=== PATIENT | female | born 1935 | race Caucasian/White ===

== ENCOUNTER → 2016-06-22 | Outpatient (REF) | payer MEDICARE ==
[2016-06-22 17:37] LABS: ALBUMIN 4.1 GM/DL (3.2-5.2); ALBUMIN/GLOBULIN RATIO 1.24 (1.00-1.93); ALKALINE PHOSPHATASE 54 U/L (45-117); ALT/SGPT 30 U/L (12-78); ANION GAP 7 MEQ/L (8-16); AST/SGOT 25 U/L (15-37); BILIRUBIN,TOTAL 0.4 MG/DL (0.2-1.0); BLOOD UREA NITROGEN 25 MG/DL (7-18); CALCIUM LEVEL 9.6 MG/DL (8.8-10.2); CARBON DIOXIDE LEVEL 30 MEQ/L (21-32); CHLORIDE LEVEL 104 MEQ/L (98-107); CHOLESTEROL LEVEL 154 MG/DL (<200); CREATININE FOR GFR 0.94 MG/DL (0.55-1.02); GLOMERULAR FILTRATION RATE > 60.0 (>39); GLUCOSE, FASTING 109 MG/DL (83-110); POTASSIUM SERUM 4.4 MEQ/L (3.5-5.1); SODIUM LEVEL 141 MEQ/L (136-145); TOTAL PROTEIN 7.4 GM/DL (6.4-8.2); TRIGLYCERIDES LEVEL 149 MG/DL (<150)
== END ==
LOC: M SFHCCLAY 11:19
PROVIDERS: ATTEND Family Medicine
DX: E78.2 Mixed hyperlipidemia (principal); R73.9 Hyperglycemia, unspecified

== ENCOUNTER → 2016-12-12 | Outpatient (REF) | payer MEDICARE ==
[2016-12-12 17:51] LABS: ALBUMIN/GLOBULIN RATIO 1.14 (1.00-1.93); ALKALINE PHOSPHATASE 57 U/L (45-117); ALT/SGPT 26 U/L (12-78); ANION GAP 9 MEQ/L (8-16); AST/SGOT 23 U/L (15-37); BILIRUBIN,TOTAL 0.4 MG/DL (0.2-1.0); BLOOD UREA NITROGEN 18 MG/DL (7-18); CALCIUM LEVEL 9.3 MG/DL (8.8-10.2); CARBON DIOXIDE LEVEL 27 MEQ/L (21-32); CHLORIDE LEVEL 105 MEQ/L (98-107); CHOLESTEROL LEVEL 144 MG/DL (<200); CREATININE FOR GFR 0.93 MG/DL (0.55-1.02); GLOMERULAR FILTRATION RATE > 60.0 (>39); GLUCOSE, FASTING 98 MG/DL (83-110); POTASSIUM SERUM 4.8 MEQ/L (3.5-5.1); SODIUM LEVEL 141 MEQ/L (136-145); TOTAL PROTEIN 7.5 GM/DL (6.4-8.2); TRIGLYCERIDES LEVEL 139 MG/DL (<150)
== END ==
LOC: M SFHCCLAY 10:56
PROVIDERS: ATTEND Family Medicine
DX: E78.2 Mixed hyperlipidemia (principal)

== ENCOUNTER → 2017-06-27 | Outpatient (REF) | payer MEDICARE ==
[2017-06-27 12:20] LABS: ALBUMIN 3.9 GM/DL (3.2-5.2); ALBUMIN/GLOBULIN RATIO 1.05 (1.00-1.93); ALKALINE PHOSPHATASE 66 U/L (45-117); ALT/SGPT 23 U/L (12-78); ANION GAP 6 MEQ/L (8-16); AST/SGOT 20 U/L (7-37); BILIRUBIN,TOTAL 0.4 MG/DL (0.2-1.0); BLOOD UREA NITROGEN 29 MG/DL (7-18); CALCIUM LEVEL 9.2 MG/DL (8.8-10.2); CARBON DIOXIDE LEVEL 28 MEQ/L (21-32); CHLORIDE LEVEL 105 MEQ/L (98-107); CHOLESTEROL LEVEL 156 MG/DL (<200); CREATININE FOR GFR 0.93 MG/DL (0.55-1.30); GLOMERULAR FILTRATION RATE > 60.0 (>39); GLUCOSE, FASTING 108 MG/DL (70-100); HDL CHOLESTEROL 50 MG/DL (>40); LDL CHOLESTEROL 81.8 MG/DL (<100); NON-HDL-C 106 MG/DL; POTASSIUM SERUM 4.4 MEQ/L (3.5-5.1); SODIUM LEVEL 139 MEQ/L (136-145); TOTAL PROTEIN 7.6 GM/DL (6.4-8.2); TRIGLYCERIDES LEVEL 121 MG/DL (<150)
== END ==
LOC: M SFHCCLAY 07:13
DX: E78.2 Mixed hyperlipidemia (principal)
CPT/HCPCS: 84443

== ENCOUNTER → 2017-10-31 | Outpatient (REF) | payer MEDICARE ==
[2017-10-31 11:31] LABS: HEMATOCRIT 42.1 % (36.0-47.0); MEAN CORPUSCULAR HEMOGLOBIN 32.6 pg (27.0-33.0); MEAN CORPUSCULAR HGB CONC 33.3 g/dl (32.0-36.5); MEAN CORPUSCULAR VOLUME 98.1 fl (80.0-96.0); PLATELET COUNT, AUTOMATED 455 10^3/uL (150-450); RED BLOOD COUNT 4.29 10^6/uL (4.00-5.40); RED CELL DISTRIBUTION WIDTH 14.2 % (11.5-14.5); WHITE BLOOD COUNT 10.7 10^3/uL (4.0-10.0)
[2017-10-31 12:12] LABS: ALBUMIN 3.5 GM/DL (3.2-5.2); ALBUMIN/GLOBULIN RATIO 0.95 (1.00-1.93); ALKALINE PHOSPHATASE 50 U/L (45-117); ALT/SGPT 32 U/L (12-78); ANION GAP 10 MEQ/L (8-16); AST/SGOT 22 U/L (7-37); BILIRUBIN,TOTAL 0.4 MG/DL (0.2-1.0); BLOOD UREA NITROGEN 24 MG/DL (7-18); CARBON DIOXIDE LEVEL 25 MEQ/L (21-32); CHLORIDE LEVEL 108 MEQ/L (98-107); CHOLESTEROL LEVEL 140 MG/DL (<200); CHOLESTEROL RISK RATIO 2.641 (<5); CREATININE FOR GFR 0.91 MG/DL (0.55-1.30); GLOMERULAR FILTRATION RATE > 60.0 (>39); GLUCOSE, FASTING 99 MG/DL (70-100); HDL CHOLESTEROL 53 MG/DL (>40); LDL CHOLESTEROL 65.2 MG/DL (<100); NON-HDL-C 87 MG/DL; POTASSIUM SERUM 4.9 MEQ/L (3.5-5.1); SODIUM LEVEL 143 MEQ/L (136-145); TOTAL PROTEIN 7.2 GM/DL (6.4-8.2); TRIGLYCERIDES LEVEL 109 MG/DL (<150)
== END ==
LOC: M SFHCCLAY 08:29
DX: E78.2 Mixed hyperlipidemia (principal); I10 Essential (primary) hypertension; C50.912 Malignant neoplasm of unspecified site of left female breast
CPT/HCPCS: 84443

== ENCOUNTER → 2018-04-29 | Outpatient (REF) | payer MEDICARE ==
[2018-04-29 11:19] LABS: HEMOGLOBIN 13.8 g/dl (12.0-15.5); MEAN CORPUSCULAR HEMOGLOBIN 32.7 pg (27.0-33.0); MEAN CORPUSCULAR HGB CONC 32.9 g/dl (32.0-36.5); MEAN CORPUSCULAR VOLUME 99.5 fl (80.0-96.0); PLATELET COUNT, AUTOMATED 461 10^3/uL (150-450); RED BLOOD COUNT 4.22 10^6/uL (4.00-5.40); WHITE BLOOD COUNT 14.6 10^3/uL (4.0-10.0)
[2018-04-29 11:37] LABS: ALBUMIN 3.3 GM/DL (3.2-5.2); BILIRUBIN,TOTAL 0.2 MG/DL (0.2-1.0); CALCIUM LEVEL 9.5 MG/DL (8.8-10.2); GLOMERULAR FILTRATION RATE 56.8 (>32); THYROID STIMULATING HORMONE 5.41 uIU/ML (0.358-3.740)
== END ==
LOC: M SFHCCLAY 07:10
PROVIDERS: ATTEND Family Medicine
DX: I10 Essential (primary) hypertension (principal); C50.912 Malignant neoplasm of unspecified site of left female breast; E78.2 Mixed hyperlipidemia

== ENCOUNTER → 2018-06-10 | Outpatient (REF) | payer MEDICARE ==
[2018-06-10 11:53] LABS: BASO # 0.1 10^3/uL (0.0-0.2); BASO % 1.1 % (0.0-1.0); EOS # 0.3 10^3/uL (0.0-0.50); EOS % 3.2 % (0.0-3.0); HEMOGLOBIN 13.6 g/dl (12.0-15.5); LYMPH % 27.8 % (24.0-44.0); MEAN CORPUSCULAR HEMOGLOBIN 32.9 pg (27.0-33.0); MEAN CORPUSCULAR HGB CONC 32.4 g/dl (32.0-36.5); MEAN CORPUSCULAR VOLUME 101.4 fl (80.0-96.0); MONO # 0.7 10^3/uL (0.0-0.8); MONO % 6.4 % (0.0-5.0); NEUTROPHILS # 6.4 10^3/uL (1.8-7.7); NEUTROPHILS % 60.6 % (36.0-66.0); PLATELET COUNT, AUTOMATED 396 10^3/uL (150-450); RED BLOOD COUNT 4.14 10^6/uL (4.00-5.40); WHITE BLOOD COUNT 10.6 10^3/uL (4.0-10.0)
[2018-06-10 12:46] LABS: FREE T4 1.04 NG/DL (0.76-1.46); THYROID STIMULATING HORMONE 4.39 uIU/ML (0.358-3.740)
== END ==
LOC: M SFHCCLAY 07:40
PROVIDERS: ATTEND Family Medicine
DX: D72.829 Elevated white blood cell count, unspecified (principal); R79.89 Other specified abnormal findings of blood chemistry; I10 Essential (primary) hypertension

== ENCOUNTER → 2018-12-01 | Outpatient (REF) | payer MEDICARE ==
[2018-12-01 11:39] LABS: BASO # 0.1 10^3/uL (0.0-0.2); BASO % 0.8 % (0.0-1.0); EOS # 0.2 10^3/uL (0.0-0.50); EOS % 1.7 % (0.0-3.0); HEMATOCRIT 38.8 % (36.0-47.0); HEMOGLOBIN 12.7 g/dl (12.0-15.5); LYMPH # 3.3 10^3/uL (1.5-4.5); LYMPH % 29.2 % (24.0-44.0); MEAN CORPUSCULAR HEMOGLOBIN 31.8 pg (27.0-33.0); MEAN CORPUSCULAR HGB CONC 32.7 g/dl (32.0-36.5); MEAN CORPUSCULAR VOLUME 97.2 fl (80.0-96.0); MONO # 0.8 10^3/uL (0.0-0.8); MONO % 7.2 % (0.0-5.0); NEUTROPHILS # 6.8 10^3/uL (1.8-7.7); NEUTROPHILS % 59.8 % (36.0-66.0); PLATELET COUNT, AUTOMATED 467 10^3/uL (150-450); RED BLOOD COUNT 3.99 10^6/uL (4.00-5.40); WHITE BLOOD COUNT 11.4 10^3/uL (4.0-10.0)
[2018-12-01 12:10] LABS: FREE T4 0.96 NG/DL (0.76-1.46); THYROID STIMULATING HORMONE 3.87 uIU/ML (0.358-3.740)
== END ==
LOC: M SFHCCLAY 09:35
PROVIDERS: ATTEND Family Medicine
DX: D72.829 Elevated white blood cell count, unspecified (principal); R79.89 Other specified abnormal findings of blood chemistry

== ENCOUNTER → 2019-10-12 | Outpatient (REF) | payer MEDICARE ==
[2019-10-12 11:29] LABS: HEMATOCRIT 31.6 % (36.0-47.0); HEMOGLOBIN 10.5 g/dl (12.0-15.5); MEAN CORPUSCULAR HEMOGLOBIN 37.2 pg (27.0-33.0); MEAN CORPUSCULAR HGB CONC 33.2 g/dl (32.0-36.5); MEAN CORPUSCULAR VOLUME 112.1 fl (80.0-96.0); PLATELET COUNT, AUTOMATED 281 10^3/uL (150-450); RED BLOOD COUNT 2.82 10^6/uL (4.00-5.40); WHITE BLOOD COUNT 9.7 10^3/uL (4.0-10.0)
[2019-10-12 12:06] LABS: ALBUMIN 3.6 GM/DL (3.2-5.2); BILIRUBIN,TOTAL 0.3 MG/DL (0.2-1.0); CALCIUM LEVEL 9.7 MG/DL (8.8-10.2); CHOLESTEROL RISK RATIO 2.929 (<5); FREE T4 1.08 NG/DL (0.76-1.46); GLOMERULAR FILTRATION RATE 56.6 (>32); POTASSIUM SERUM 4.5 MEQ/L (3.5-5.1); THYROID STIMULATING HORMONE 2.35 uIU/ML (0.358-3.740); TOTAL PROTEIN 7.2 GM/DL (6.4-8.2)
== END ==
LOC: M SFHCCLAY 09:10
PROVIDERS: ATTEND Family Medicine
DX: I10 Essential (primary) hypertension (principal); E78.2 Mixed hyperlipidemia; Z86.711 Personal history of pulmonary embolism; E87.1 Hypo-osmolality and hyponatremia

== ENCOUNTER → 2020-02-16 | Outpatient (REF) | payer MEDICARE ==
[2020-02-17 11:43] LABS: HEMATOCRIT 35.3 % (36.0-47.0); HEMOGLOBIN 11.2 g/dl (12.0-15.5); MEAN CORPUSCULAR HEMOGLOBIN 36.8 pg (27.0-33.0); MEAN CORPUSCULAR HGB CONC 31.7 g/dl (32.0-36.5); PLATELET COUNT, AUTOMATED 312 10^3/uL (150-450); RED BLOOD COUNT 3.04 10^6/uL (4.00-5.40); WHITE BLOOD COUNT 17.5 10^3/uL (4.0-10.0)
[2020-02-17 12:02] LABS: MEAN CORPUSCULAR VOLUME 116.1 fl (80.0-96.0)
[2020-02-17 12:36] LABS: CALCIUM LEVEL 10.3 MG/DL (8.8-10.2); CREATININE FOR GFR 0.97 MG/DL (0.55-1.30); FREE T4 0.94 NG/DL (0.76-1.46); GLOMERULAR FILTRATION RATE 58.5 (>32); POTASSIUM SERUM 5.5 MEQ/L (3.5-5.1); THYROID STIMULATING HORMONE 1.19 uIU/ML (0.358-3.740)
== END ==
LOC: M SFHCCLAY 14:25
PROVIDERS: ATTEND Family Medicine
DX: R60.9 Edema, unspecified (principal)
CPT/HCPCS: 80048; 84439; 84443; 85027; G0463; G8482

== ENCOUNTER → 2020-06-01 | Outpatient (REF) | payer MEDICARE ==
[2020-06-01 11:59] LABS: HEMOGLOBIN 11.8 g/dl (12.0-15.5); MEAN CORPUSCULAR HEMOGLOBIN 33.1 pg (27.0-33.0); MEAN CORPUSCULAR HGB CONC 31.9 g/dl (32.0-36.5); MEAN CORPUSCULAR VOLUME 103.9 fl (80.0-96.0); PLATELET COUNT, AUTOMATED 341 10^3/uL (150-450); RED BLOOD COUNT 3.56 10^6/uL (4.00-5.40)
[2020-06-01 12:33] LABS: BLOOD UREA NITROGEN 12 MG/DL (7-18); CALCIUM LEVEL 10.4 MG/DL (8.8-10.2); CARBON DIOXIDE LEVEL 31 MEQ/L (21-32); CHLORIDE LEVEL 95 MEQ/L (98-107); CREATININE FOR GFR 0.91 MG/DL (0.55-1.30); GLOMERULAR FILTRATION RATE > 60.0 (>32); GLUCOSE, FASTING 196 MG/DL (70-100); MAGNESIUM LEVEL 1.8 MG/DL (1.8-2.4); POTASSIUM SERUM 3.1 MEQ/L (3.5-5.1); SODIUM LEVEL 137 MEQ/L (136-145)
[2020-06-01 13:05] LABS: ANISOCYTOSIS 1+; ATYPICAL LYMPH 10 % (0-5); LYMPHOCYTES 19 % (16-44); MONOCYTES 2 % (0-5); MYELOCYTES 2 % (0-0); NEUTROPHILS 62 % (28-66); PLATELET ESTIMATE NORMAL (NORMAL); POLYCHROMASIA 1+
[2020-06-02 08:51] LABS: METAMYELOCYTES 1 % (0-0)
== END ==
LOC: M SFHCCLAY 07:58
PROVIDERS: ATTEND Family Medicine
DX: J18.9 Pneumonia, unspecified organism (principal); I10 Essential (primary) hypertension; E87.6 Hypokalemia

== ENCOUNTER → 2020-06-01 | Outpatient (CLI) | payer MEDICARE ==
--- NOTE | 2020-06-01 10:33 | REP ---
INDICATION: J18.9 PNEUMONIA OF LOWER LOBE DUE TO INFECTIOUS. COMPARISON: No comparison chest x-ray. TECHNIQUE: Two views.. 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 There is a mild levoconvex curve in the upper thoracic spine. No acute bony abnormality is seen. Lung rizo are otherwise clear. Pleural angles are sharp. Heart size is normal. Pulmonary vasculature is not increased. IMPRESSION: No acute disease. Calcific pleural plaquing bilaterally in the upper lung zones. No infiltrate seen.. <Electronically signed by Moshe Leyva > 06/01/20 [id number]
== END ==
LOC: M CLY 08:07
PROVIDERS: ATTEND Family Medicine
DX: R91.8 Other nonspecific abnormal finding of lung field (principal); J18.9 Pneumonia, unspecified organism; I10 Essential (primary) hypertension; E87.6 Hypokalemia

== ENCOUNTER → 2020-06-21 | Outpatient (REF) | payer MEDICARE ==
[2020-06-22 13:19] LABS: CALCIUM LEVEL 8.9 MG/DL (8.8-10.2); CREATININE FOR GFR 1.11 MG/DL (0.55-1.30); GLOMERULAR FILTRATION RATE 50.1 (>32); POTASSIUM SERUM 4.3 MEQ/L (3.5-5.1)
== END ==
LOC: M SFHCCLAY 15:22
PROVIDERS: ATTEND Family Medicine
DX: I10 Essential (primary) hypertension (principal)
CPT/HCPCS: 80048; 99497; G0463

== ENCOUNTER 2020-12-09 20:33 | Inpatient (IN) | payer MEDICARE ==
[~2020-12-09] VITALS: Ht 162.6 cm; Wt 89.2 kg
[2020-12-09 21:42] LABS: BASO % 0.2 % (0.0-1.0); EOS % 0.1 % (0.0-3.0); HEMATOCRIT 40.3 % (36.0-47.0); HEMOGLOBIN 13.5 g/dl (12.0-15.5); LYMPH # 1.7 10^3/uL (1.5-5.0); LYMPH % 13.7 % (24.0-44.0); MEAN CORPUSCULAR HEMOGLOBIN 33.8 pg (27.0-33.0); MEAN CORPUSCULAR HGB CONC 33.5 g/dl (32.0-36.5); MEAN CORPUSCULAR VOLUME 100.8 fl (80.0-96.0); MONO # 0.7 10^3/uL (0.0-0.8); MONO % 5.2 % (2.0-8.0); NEUTROPHILS # 8.4 10^3/uL (1.5-8.5); NEUTROPHILS % 66.5 % (36.0-66.0); PLATELET COUNT, AUTOMATED 228 10^3/uL (150-450); WHITE BLOOD COUNT 12.6 10^3/uL (4.0-10.0)
[2020-12-09] MEDS ORDERED: NS 1,000 ML IV ONE (21:55)
[2020-12-09 22:10] LABS: ALBUMIN 2.8 GM/DL (3.2-5.2); BILIRUBIN,TOTAL 0.6 MG/DL (0.2-1.0); CALCIUM LEVEL 9.6 MG/DL (8.8-10.2); CREATININE FOR GFR 1.26 MG/DL (0.55-1.30); GLOMERULAR FILTRATION RATE 43.2 (>32); POTASSIUM SERUM 3.1 MEQ/L (3.5-5.1)
[2020-12-09 22:43] LABS: VENOUS BASE EXCESS 5.4 (-2.0-2.0); VENOUS HCO3 30.2 MEQ/L (23.0-27.0); VENOUS O2 SATURATION 87.1 % (60.0-80.0); VENOUS PARTIAL PRESSURE CO2 44.3 mmHg (38.0-50.0); VENOUS PARTIAL PRESSURE O2 55.4 mmHg (30.0-50.0); VENOUS PH 7.451 UNITS (7.330-7.430); VENOUS STANDARD HCO3 29.1 MEQ/L; VENOUS TOTAL CO2 31.5 MEQ/L (24.0-28.0)
--- NOTE | 2020-12-09 23:03 | REPVR ---
PROCEDURE INFORMATION: Exam: XR Chest Exam date and time: 12/09/20 (10:09pm) Age: 85 years old Clinical indication: Dizziness, weakness. Sepsis / shock. TECHNIQUE: Imaging protocol: Portable CXR Views: 1 view COMPARISON: Chest films of 06/01/20 FINDINGS: Comparison is made with chest films done on 06/01/20. Poor inspiratory effort. The left lung base is not fully included on the film. Difficult to assess the mediastinum and heart size due to patient positioning and film technique. Pleural calcifications again noted peripherally in the upper lobes. The visualized lung rizo appear clear. No obvious consolidation. No pleural effusion on the right side. No pneumothorax. IMPRESSION: Limited evaluation due to patient positioning and poor inspiratory effort. No definite infiltrates. No consolidation. No right-sided pleural effusion is seen. No pneumothorax. See additional comments above. Electronically signed by: Tanesha Myers On 12/09/2020 23:02:35 PM
[2020-12-09 23:16] LABS: ALBUMIN 2.7 GM/DL (3.2-5.2); ALT/SGPT 58 U/L (12-78); BILIRUBIN,DIRECT 0.1 MG/DL (0.0-0.2); BILIRUBIN,TOTAL 0.6 MG/DL (0.2-1.0); CK-MB VALUE MASS 1.7 NG/ML (<3.6); CPK CREATINE PHOSPHOKINASE 42 U/L (26-192); MB/CK RELATIVE INDEX 4.05 (< OR =4); TOTAL PROTEIN 6.5 GM/DL (6.4-8.2); TROPONIN I < 0.02 NG/ML (< 0.10)
--- NOTE | 2020-12-09 23:20 | REPVR ---
PROCEDURE INFORMATION: Exam: CT Head without Contrast Exam date and time: 12/09/20 (10:19pm) Age: 85 years old Clinical indication: Lethargy and weakness TECHNIQUE: Imaging protocol: Computed tomography of the head without contrast. Radiation optimization: All CT scans at this facility use at least one of these dose optimization techniques: automated exposure control; mA and/or kV adjustment per patient size (includes targeted exams where dose is matched to clinical indication); or iterative reconstruction. COMPARISON: No relevant prior studies available FINDINGS: Brain: No acute hemorrhage. No cerebral edema. No mass effect. Age-related atrophic changes are noted. Periventricular and subcortical areas of low attenuation, compatible with chronic small vessel microischemic changes. Cerebral ventricles: No ventriculomegaly. Paranasal sinuses: Visualized sinuses are unremarkable. No air-fluid levels. Mastoid air cells: Visualized mastoid air cells are well aerated. Bones/joints: No acute fracture. Multiple sclerotic skull foci, bilaterally. No obvious bone destruction. Soft tissues: Unremarkable. IMPRESSION: No acute intracranial pathology is appreciated. Chronic atrophic and microischemic changes. Multiple sclerotic skull foci, of unclear significance. Possible metastatic disease, eg. Clinical correlation is suggested. . Comparison with prior CT-HEAD scans is suggested, if available Electronically signed by: Tanesha Myers On 12/09/2020 23:19:40 PM
[2020-12-09] MEDS ORDERED: NS 1,320 ML in IV 1 EA IV ONE (23:25)
[2020-12-09] MEDS ORDERED: KCL 10MEQ/100ML SWI (KRUN) 10 MEQ in IV 1 EA IV ONE (23:25)
[2020-12-09 23:47] LABS: ACETONE/KETONE 5.6 MG/DL (<2.81); MAGNESIUM LEVEL 2.1 MG/DL (1.8-2.4); PHOSPHORUS LEVEL 3.2 MG/DL (2.5-4.9)
[2020-12-09 23:57] LABS: HEMOGLOBIN A1c 10.7 %
[2020-12-10] VITALS (16 sets, daily range): BP systolic 131–175; BP diastolic 62–78; O2SAT 89–98
[2020-12-10 00:56] LABS: RSV AMPLIFICATION NEGATIVE (NEGATIVE)
[2020-12-10] MEDS ORDERED: SIMV40TA20 PO (02:29)
[2020-12-10] MEDS ORDERED: GLIP5TAB8 PO (02:29)
[2020-12-10] MEDS ORDERED: SITA50TAB PO (02:29)
[2020-12-10] MEDS ORDERED: KLOR10TA76 PO (02:29)
[2020-12-10] MEDS ORDERED: ACETAMINOPHEN TAB 650MG DOSE (2X325MG) PO PRN (02:50)
[2020-12-10] MEDS ORDERED: GLUCOSE 4GM CHEW TABLET PO PRN (02:55)
[2020-12-10] MEDS ORDERED: GLUCAGON INJ 1MG VIAL SC PRN (02:55)
[2020-12-10] MEDS ORDERED: DEXTROSE 50% 50 ML SYRINGE IV PRN (02:55)
[2020-12-10] MEDS ORDERED: THIAMINE 200MG 2ML VIAL IM ONE (03:00)
--- NOTE | 2020-12-10 03:10 | HPEPDOC ---
General Date of Admission 12/10/2020 Date of Service: Dec 10, 2020 Chief Complaint Feels fatigue, weak, and thirsty Source: Patient, Old records Exam Limitations: Clinical conditions, Mild cognitive slowing Timing/Duration: Unsure Severity: Moderate Associated Symptoms: Weakness History of Present Illness Patient is a 85 year old female with past medical history of hypertension and dyslipidemia who presented to [facility] ED by EMS due to generalized weakness and dizziness for a week. Patient appears very sleepy but is able to able questions with re-orientation at times. She said that she feels very thirsty, sleepy, and weak. She said she has a poor appetite. denies any fever, chest pain, palpitation, dyspnea, cough, sore throat, rhinorrhea, nausea, vomiting, abdominal pain, diarrhea, constipation, blood in stool, dysuria, numbness, tingling, or loss of sensation. She said she has bilateral leg pain even while laying supine, denies being bed-bound. Home Medications Scheduled Apixaban (Eliquis) 5 Mg Tablet, 5 MG PO BID, (Reported) Dexamethasone (Dexamethasone) 2 Mg Tablet, 2 MG PO DAILY, (Reported) Furosemide (Furosemide) 40 Mg Tablet, 40 MG PO DAILY, (Reported) Glipizide (Glipizide) 5 Mg Tablet, 5 MG PO ACB, (Reported) OBTAINED FROM EXTERNAL HISTORY Potassium Chloride (Klor-Con M10) 10 Meq Tab.er.prt, 10 MEQ PO BID, (Reported) WITH FOOD OBTAINED FROM EXTERNAL HISTORY Simvastatin (Simvastatin) 40 Mg Tablet, 40 MG PO QPM, (Reported) OBTAINED FROM EXTERNAL Sitagliptin (Januvia) 50 Mg Tablet, 50 MG PO DAILY, (Reported) OBTAINED FROM EXTERNAL HISTORY Allergies Coded Allergies: No Known Drug Allergies (Verified Allergy, Unknown, 12/09/20) Past Medical History Medical History Hypertension Hyperlipidemia: cholesterol and triglycerides Breast cancer-Dr. Jose G swain left Social History * Smoker: Denies Alcohol: Denies Drugs: denies Recent Travel/Sick Contacts: Denies: Recent travel, Recent sick contacts Patient reported she lives with daughter at home A-FIB/CHADSVASC A-FIB History Current/History of A-Fib/PAF?: No Review of Systems Constitutional: Reports: Fatigue, Other (decreased appetite); Denies: Chills, Fever Eyes: Denies: Vision change ENT: Reports: Other Symptoms (Denies rhinorrhea); Denies: Dysphagia, Sore Throat Pulmonary: Denies: Dyspnea, Cough Cardiovascular: Denies: Chest Pain, Palpitations Gastrointestinal: Denies: Nausea, Vomiting, Abdominal Pain, Diarrhea, Constipation, Hematochezia Genitourinary: Denies: Dysuria, Frequency, Hematuria Endocrine: Reports: Other Endocrine Sx (Thirsty) Musculoskeletal: Reports: Leg Pain (bilateral calf pain) Neurological: Denies: Numbness Psych: Reports: Anxiety, Depression Physical Examination General Exam: Positive: Cooperative, Mild Distress (intermittently), Other (Sleepy but arousable) Eye Exam: Positive: Conjunctiva & lids normal, EOMI; Negative: Sclera icteric ENT Exam: Positive: Atraumatic, Other ENT (dry mucous [place]) Neck Exam: Positive: Supple Chest Exam: Positive: Clear to auscultation, Normal air movement; Negative: Rales, Rhonchi, Wheezing, Diminished Heart Exam: Positive: Rate Normal, Regular Rhythm, Normal S1, Normal S2; Negative: Murmurs Abdomen Exam: Positive: Normal bowel sounds, Soft; Negative: Tenderness Extremity Exam: Positive: Edema (bilateral edema), Normal pulses (in bilateral lower extremities: dorsalis pedis and tibialis posterior), Other (negative nhan's sign bilaterally); Negative: Cyanosis Skin Exam: Positive: Other skin issue (ecchymosis); Negative: Rash, Lesion Neuro Exam: Positive: Normal Speech, Strength at 5/5 X4 ext, Normal Tone, Sensation Intact Psych Exam: Positive: Mood NL, Memory Intact, Oriented x 3 (oriented to name, city, and year) Vital Signs Vital Signs Date Time Temp Pulse Resp B/P (MAP) Pulse Ox O2 Delivery O2 Flow Rate FiO2 12/10/20 02:50 90 16 96 Nasal Cannula 2.0 12/10/20 02:31 154/70 (98) 12/09/20 20:45 99.6 Laboratory Data Labs 24H Laboratory Tests 2 12/09/20 21:35: Immature Granulocyte % (Auto) 14.3H, Neutrophils (%) (Auto) 66.5H, Lymphocytes (%) (Auto) 13.7L, Monocytes (%) (Auto) 5.2, Eosinophils (%) (Auto) 0.1, Basophils (%) (Auto) 0.2, Neutrophils # (Auto) 8.4, Lymphocytes # (Auto) 1.7, Monocytes # (Auto) 0.7, Eosinophils # (Auto) 0.0, Basophils # (Auto) 0.0, Nucleated Red Blood Cells % (auto) 1.0H, Anion Gap 9, Glomerular Filtration Rate 43.2, Estimated Mean Plasma Glucose 260H, Hemoglobin A1c 10.7, Osmolality 297, Calcium Level 9.6, Phosphorus Level 3.2, Magnesium Level 2.1, Total Bilirubin 0.6, Aspartate Amino Transf (AST/SGOT) 35, Alanine Aminotransferase (ALT/SGPT) 58, Alkaline Phosphatase 75, Total Protein 6.0L, Albumin 2.8L, Albumin/Globulin Ratio 0.9L, B-Hydroxybutyrate 5.60H 12/09/20 22:29: Total Bilirubin 0.6, Aspartate Amino Transf (AST/SGOT) 33, Alanine Aminotransferase (ALT/SGPT) 58, Alkaline Phosphatase 76, Total Protein 6.5, Albumin 2.7L, Albumin/Globulin Ratio 0.7L, Blood Gas Bicarbonate Standard 29.1, Venous Blood pH 7.451H, Venous Blood Partial Pressure CO2 44.3, Venous Blood Partial Pressure O2 55.4H, Venous Blood Total Carbon Dioxide 31.5H, Venous Blood HCO3 30.2H, Venous Blood Oxygen Saturation 87.1H, Venous Blood Base Excess 5.4H, Lactic Acid Level 3.4*H, Direct Bilirubin 0.1, Total Creatine Kinase 42, Creatine Kinase MB 1.7, Creatine Kinase MB Relative Index 4.05H, Troponin I < 0.02, C-Reactive Protein, Quantitative 10.00H 12/09/20 23:43: Coronavirus (COVID-19)(PCR) NEGATIVE, Influenza Type A (RT-PCR) NEGATIVE, Influenza Type B (RT-PCR) NEGATIVE, Respiratory Syncytial Virus (PCR) NEGATIVE 12/10/20 01:54: Urine Color YELLOW, Urine Appearance HAZY, Urine pH 5.0, Urine Specific Sims 1.016, Urine Protein 1+H, Urine Glucose (UA) 3+H, Urine Ketones NEGATIVE, Urine Blood 1+H, Urine Nitrite NEGATIVE, Urine Bilirubin NEGATIVE, Urine Urobilinogen 0.2, Urine Leukocyte Esterase 1+H, Urine WBC (Auto) 22H, Urine RBC (Auto) 5H, Urine Hyaline Casts (Auto) 0, Urine Bacteria (Auto) NEGATIVE, Urine Squamous Epithelial Cells 1, Urine Transitional Epithelial Cells <1, Urine Mucus (Auto) SMALL, Urine Sperm (Auto) CBC/[facility] Laboratory Tests 12/09/20 21:35 Microbiology Microbiology 12/10/20 Urine Culture, Received Pending 12/09/20 Blood Culture, Received Pending 12/09/20 Blood Culture, Received Pending Assessment/Plan 1. Metabolic encephalopathy likely due to UTI and electrolyte disturbance, r/o bacteremia -UA indicated UTI, urine culture and blood culture pending -elevated CRP. Procalcitonin pending -Start IV Ceftriaxone -first trop negative, follow up cardiac marker panel 2. Lactic acidosis likely due to ketosis, less likely dehydration, r/o bacteremia -S/p 2 L NS bolus in ER -blood culture pending, follow up 4 hour lactic acid 3. Hypokalemia likely due to decreased oral intake -Magnesium level within reference range -S/p 1 K run ordered from ER. 2 more K runs ordered -Follow up with [facility] 4. 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 Possible metastatic disease, eg. Clinical correlation is suggested. Comparison with prior CT-HEAD scans is suggested, if available." -consider touching base with oncology in the morning given history of breast cancer 5. Uncontrolled diabetes mellitus -A1C 10.7, blood glucose on BMP was 260 -no increased anion gap, no metabolic acidosis on VBG -Hold home diabetes mellitus medication -Glucose checks ACHS, sliding scale insulin, hypoglycemia protocol -diabetic education 6. Ketosis, likely starvation ketosis -ketone level of 5.6 -no anion gap, no metabolic acidosis -consistent carbohydrate diet 7. Bilateral lower extremity edema and pain, r/o DVT -Wells score of 3 -bilateral duplex venous ultrasound ordered 8. Hyponatremia, chronic, likely associated with tea and toast diet -Na 132 upon ER arrival. Na of 133 in 06/2020 -S/p 2 litter of normal saline bolus given by ER -continue to follow up with BMP -consider nutritional evaluation vs outpatient follow up 9. Hypertension -not on anti-hypertensive at home -Blood pressure roughly stable. Continue to monitor vital signs 10. Dyslipidemia -continue home med Simvastatin DVT prophylaxis: TEDS and SCD It was noted around 6: 50AM that the patient's daughter reported she also takes the following: Dexamethasone 2mg PO QAM Lasix 40mg QD Eliquis 5mg PO BID Communicated with pharmacy and waiting for the newly reported home medication to be reviewed. May continue the above home meds when medications are reconciled. Plan / VTE VTE Prophylaxis Ordered?: Yes GME ATTESTATION GME ATTESTATION My faculty preceptor for this patient encounter was physically present during the encounter and was fully available. All aspects of the patient interview, examination, medical decision making process, and medical care plan development were reviewed and approved by the faculty preceptor. The faculty preceptor is aware and concurs with the plan as stated in the body of this note and will attest to such by his/her cosignature. ATTENDING NOTE I, Anthony Mcmanus, performed a history and physical exam of the patient and discuss his/or her management with the resident. I reviewed the residents note and agree with the documented findings and plan of care. ALICIA NEWTON DO Dec 10, 2020 03:10 ANTHONY MCMANUS DO Dec 13, 2020 02:50
--- NOTE | 2020-12-10 03:48 | REPVR ---
PROCEDURE INFORMATION: Exam: US Duplex Lower Extremity Veins, Bilateral Exam date and time: 12/10/20 (3:21am) Age: 85 years old Clinical indication: Bilateral lower leg edema and pain. Altered mental status. TECHNIQUE: Imaging protocol: Real-time duplex ultrasound of the extremities with 2-D sahu scale, color Doppler flow and spectral waveform analysis with image documentation. Complete exam focused on the bilateral lower extremity veins. COMPARISON: No relevant prior studies available FINDINGS: Right deep veins: Unremarkable. The common femoral, femoral, proximal profunda femoral and popliteal veins are patent without thrombus. Normal Doppler waveforms. Normal compressibility and/or augmentation response. Calf veins not visualized due to patient motion. Right superficial veins: Saphenofemoral junction is patent without thrombus. Left deep veins: Unremarkable. The common femoral, femoral, proximal profunda femoral and popliteal veins are patent without thrombus. Normal Doppler waveforms. Normal compressibility and/or augmentation response. Calf veins not visualized due to patient motion. Left superficial veins: Saphenofemoral junction is patent without thrombus. Soft tissues: Unremarkable. IMPRESSION: No evidence of deep vein thrombosis (both legs examined). Electronically signed by: Tanesha Myers On 12/10/2020 03:48:34 AM
[2020-12-10] MEDS: KCL 10MEQ/100ML SWI (KRUN) 10 MEQ in IV 1 EA IV SCH ×4 (05:08→10:32)
[2020-12-10] MEDS: cefTRIAXone SOD 1 GM in D5W MINI-BAG PLUS 50 ML IV SCH (06:14)
[2020-12-10 06:27] LABS: HEMATOCRIT 35.6 % (36.0-47.0); MEAN CORPUSCULAR HEMOGLOBIN 34.6 pg (27.0-33.0); MEAN CORPUSCULAR HGB CONC 33.7 g/dl (32.0-36.5); MEAN CORPUSCULAR VOLUME 102.6 fl (80.0-96.0); PLATELET COUNT, AUTOMATED 173 10^3/uL (150-450); RED BLOOD COUNT 3.47 10^6/uL (4.00-5.40); WHITE BLOOD COUNT 8.5 10^3/uL (4.0-10.0)
[2020-12-10 06:53] LABS: BLOOD UREA NITROGEN 19 MG/DL (7-18); CALCIUM LEVEL 8.2 MG/DL (8.8-10.2); CARBON DIOXIDE LEVEL 28 MEQ/L (21-32); CHLORIDE LEVEL 104 MEQ/L (98-107); CK-MB VALUE MASS 2.3 NG/ML (<3.6); CPK CREATINE PHOSPHOKINASE 53 U/L (26-192); CREATININE FOR GFR 0.78 MG/DL (0.55-1.30); GLOMERULAR FILTRATION RATE > 60.0 (>32); GLUCOSE, FASTING 177 MG/DL (70-100); MB/CK RELATIVE INDEX 4.34 (< OR =4); SODIUM LEVEL 138 MEQ/L (136-145); TROPONIN I 0.02 NG/ML (< 0.10)
[2020-12-10 07:24] LABS: EOSINOPHILS 1 % (0-3); LYMPHOCYTES 22 % (16-44); METAMYELOCYTES 7 % (0-0); MONOCYTES 4 % (0-5); MYELOCYTES 4 % (0-0); NEUTROPHILS 58 % (28-66); PLATELET ESTIMATE NORMAL (NORMAL)
[2020-12-10 07:25] LABS: ANISOCYTOSIS 1+
[2020-12-10] MEDS ORDERED: ELIQ5TAB PO (07:25)
[2020-12-10] MEDS ORDERED: FURO40TA2 PO (07:25)
[2020-12-10] MEDS ORDERED: DEXA2TA PO (07:25)
[2020-12-10] MEDS: HumaLOG INSULIN (NovoLOG) PER UNIT SC SCH ×4 (07:30→20:50)
[2020-12-10] MEDS ORDERED: HOME MED LIST COMPLETE! XX SCH (07:30)
[2020-12-10] MEDS: FUROSEMIDE 40 MG TAB PO SCH (09:00)
[2020-12-10] MEDS: MULTIVITAMINS/MINERALS THERAP 1 TAB PO SCH (09:30)
[2020-12-10] MEDS: POTASSIUM CHLORIDE 10 MEQ SR TABLET PO SCH ×2 (09:31→20:51)
--- NOTE | 2020-12-10 10:19 | IPNPDOC ---
Text Note Date of Service The patient was seen on 12/10/20. NOTE Subjective: Patient 85-year-old female who presented to the hospital due to ge neralized weakness. Patient states that she has been feeling weak over the past 3 or 4 days. Patient does not have any other history. Patient states that she does have diabetes from medication. 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 Patient says that she has been feeling weak and dizzy for few days. Patient has not had any fevers or any chills. Patient is otherwise doing well. Review of systems: General: Patient denies fevers HEENT: Patient denies headaches Cardiovascular: Patient denies chest pain Respiratory: Patient denies shortness of breath, cough GI: Patient denies abdominal pain, nausea, vomiting, diarrhea : Patient denies increased frequency or pain with urination Extremities: Patient denies swelling or pain in extremities Neurological: Patient denies numbness or tingling in legs Physical exam: Vitals: See below General: Alert and oriented female patient who was laying in bed when I walked in the room. Patient was sleepy but did wake up and was able to answer every question I asked appropriately. Patient did not appear to be in any acute distress. HEENT: Normocephalic, atraumatic, moist mucous membranes. Neck: No lymphadenopathy or thyromegaly Cardiac: Regular rate and rhythm, no murmurs, normal S1, normal S2 Pulm: Clear to auscultation bilaterally. No wheezes, rhonchi, rales Abd: Nondistended, nontender to palpation, normal bowel sounds Ext: Edema in the bilateral lower extremities with 2+ edema in the dorsum of the feet bilaterally. Labs: See below Imaging: No new imaging has been preformed Assessment/plan: 85-year-old female with a history of stage IV breast cancer who presented to the hospital feeling weak. 1. Metabolic encephalopathy likely due to UTI and electrolyte disturbance. Urinary analysis indicated urinary tract infection. Started on IV ceftriaxone. We will continue to monitor. 2. Lactic acidosis likely due to ketosis. Patient received 2 L normal saline bolus in the ER. Lactic acid is now back to normal. 3. Hypokalemia likely due to decreased oral intake. Patient received 2 care rounds. We will recheck follow-up BMP at noon time today. 4. 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 We will continue her dexamethasone at this time. 5. Uncontrolled diabetes mellitus. Patient has been on dexamethasone. Patient's last A1c was 10.7. Patient does not appear to be in DKA at this time. We will continue with sliding scale insulin. 6. Ketosis, likely starvation ketosis. Ketone level of 5.6. No anion gap, no metabolic acidosis. Consistent carbohydrate diet. 7. Bilateral lower extremity edema. DVT was negative. Continue to monitor. 8. Hyponatremia. We will continue to monitor after normal saline bolus. 9. Hypertension. Continue to monitor blood pressure and start antihypertensives as necessary. 10. Dyslipidemia. Continue home simvastatin 11. History of pulmonary embolism. Continue Eliquis 12. Weakness. Patient will continue to work with physical therapy. This may be secondary to the urinary tract infection and dehydration. We will see how the patient responds. DVT Prophylaxis: Full anticoagulation with Eliquis Disposition: Pending clinical improvement. VS,José Antonio, I+O VS, José Antonio, I+O Laboratory Tests 12/09/20 21:35 12/10/20 06:11 Vital Signs Date Time Temp Pulse Resp B/P (MAP) Pulse Ox O2 Delivery O2 Flow Rate FiO2 12/10/20 08:09 97.1 83 22 132/62 (85) 96 Nasal Cannula 2.0 I&O- Last 24 Hours up to 6 AM 12/10/20 06:00 Intake Total 2420 ml Balance 2420 ml MASON BELL DO Dec 10, 2020 10:19
[2020-12-10] MEDS: SITagliptin 50 MG TAB (JANUVIA) PO SCH (14:23)
[2020-12-10 15:06] LABS: CALCIUM LEVEL 8.3 MG/DL (8.8-10.2); CREATININE FOR GFR 1.01 MG/DL (0.55-1.30); GLOMERULAR FILTRATION RATE 55.7 (>32); POTASSIUM SERUM 3.3 MEQ/L (3.5-5.1)
[2020-12-10] MEDS ORDERED: POTASSIUM CHLORIDE 10 MEQ SR TABLET PO ONE (18:00)
[2020-12-10] MEDS: APIXABAN 5 MG TAB (ELIQUIS) PO SCH (20:51)
[2020-12-10] MEDS: SIMVASTATIN 40 MG TAB PO SCH (20:51)
[2020-12-11] MEDS: cefTRIAXone SOD 1 GM in D5W MINI-BAG PLUS 50 ML IV SCH (05:07)
[2020-12-11 06:00] VITALS: BP 168/92
[2020-12-11 07:57] LABS: HEMATOCRIT 35.7 % (36.0-47.0); HEMOGLOBIN 11.9 g/dl (12.0-15.5); MEAN CORPUSCULAR HEMOGLOBIN 33.8 pg (27.0-33.0); MEAN CORPUSCULAR HGB CONC 33.3 g/dl (32.0-36.5); MEAN CORPUSCULAR VOLUME 101.4 fl (80.0-96.0); PLATELET COUNT, AUTOMATED 168 10^3/uL (150-450); RED BLOOD COUNT 3.52 10^6/uL (4.00-5.40); WHITE BLOOD COUNT 8.9 10^3/uL (4.0-10.0)
[2020-12-11 08:11] LABS: BLOOD UREA NITROGEN 15 MG/DL (7-18); CALCIUM LEVEL 8.4 MG/DL (8.8-10.2); CARBON DIOXIDE LEVEL 24 MEQ/L (21-32); CHLORIDE LEVEL 108 MEQ/L (98-107); CREATININE FOR GFR 0.73 MG/DL (0.55-1.30); GLOMERULAR FILTRATION RATE > 60.0 (>32); GLUCOSE, FASTING 271 MG/DL (70-100); MAGNESIUM LEVEL 2.1 MG/DL (1.8-2.4); POTASSIUM SERUM 3.5 MEQ/L (3.5-5.1); SODIUM LEVEL 141 MEQ/L (136-145)
[2020-12-11] MEDS: MULTIVITAMINS/MINERALS THERAP 1 TAB PO SCH (08:39)
[2020-12-11] MEDS: SITagliptin 50 MG TAB (JANUVIA) PO SCH (08:39)
[2020-12-11] MEDS: FUROSEMIDE 40 MG TAB PO SCH (08:39)
[2020-12-11] MEDS: POTASSIUM CHLORIDE 10 MEQ SR TABLET PO SCH ×2 (08:39→20:56)
[2020-12-11] MEDS: APIXABAN 5 MG TAB (ELIQUIS) PO SCH ×2 (08:39→20:56)
[2020-12-11] MEDS: HumaLOG INSULIN (NovoLOG) PER UNIT SC SCH ×4 (08:40→20:55)
[2020-12-11 08:49] LABS: ATYPICAL LYMPH 4 % (0-5); LYMPHOCYTES 7 % (16-44); METAMYELOCYTES 6 % (0-0); MONOCYTES 1 % (0-5); MYELOCYTES 3 % (0-0); NEUTROPHILS 73 % (28-66)
[2020-12-11 08:52] LABS: PLATELET ESTIMATE NORMAL (NORMAL)
[2020-12-11 08:53] LABS: ANISOCYTOSIS 1+
[2020-12-11 09:00] VITALS: O2SAT 94
--- NOTE | 2020-12-11 11:35 | IPNPDOC ---
Text Note Date of Service The patient was seen on 12/11/20. NOTE Subjective: Patient is an 85-year-old female present to the hospital due to ge neralized weakness. Patient states that she has been feeling weak over the past 3 to 4 days. Patient is feeling much better today. Patient is able to get around a little bit better however, she is still struggling to get to and from the bathroom. Patient's weakness was most likely secondary to a urinary tract infection combined with dehydration. Patient is now better hydrated and is eating and drinking normally. Patient denies any pain at this time. Review of systems: General: Patient denies fevers HEENT: Patient denies headaches Cardiovascular: Patient denies chest pain Respiratory: Patient denies shortness of breath, cough GI: Patient denies abdominal pain, nausea, vomiting, diarrhea : Patient denies increased frequency or pain with urination Extremities: Patient denies swelling or pain in extremities Neurological: Patient denies numbness or tingling in legs Physical exam: Vitals: See below General: Alert and oriented patient who was sitting up in bed eating breakfast when I walked into the room. Patient did not appear to be in any acute distress HEENT: Normocephalic, atraumatic, moist mucous membranes. Neck: No lymphadenopathy or thyromegaly Cardiac: Regular rate and rhythm, no murmurs, normal S1, normal S2 Pulm: Bibasilar crackles otherwise clear to auscultation Abd: Nondistended, nontender to palpation, normal bowel sounds Ext: Patient has edema on the dorsum of the left foot. Patient has trace edema in the right foot and ankles bilaterally Labs: See below Imaging: No new imaging has been performed Assessment/plan: 85-year-old female with a history of stage IV breast cancer presented to the hospital feeling weak 1. Metabolic encephalopathy likely due to urinary tract infection and electrolyte disturbance. UA indicated possible urinary tract infection. Patient was started on IV ceftriaxone. Patient is continued to improve and has been transitioned to oral cefdinir. Patient had a blood culture that was positive for gram-positive cocci in chains and clusters. Patient's MRSA PCR was negative. Patient is improving on third-generation cephalosporin we will continue this at this time. 2. Lactic acidosis likely due to ketosis. This has resolved. 3. Hypokalemia likely due to decreased oral intake. Patient received 3 rounds of IV potassium. Patient's potassium is now within normal range. 4. Question metastatic malignancy of the skull. Patient has known bone mets to her hip however, CT the head showed multiple sclerotic foci in the skull. Will need to continue to monitor this but this can be followed outpatient. 5. Uncontrolled type 2 diabetes. Patient is on dexamethasone. Last A1c was 10.7. Continue sliding scale insulin. Patient may need basal coverage as well. 6. Ketosis, likely starvation ketosis. Ketone level was 5.6. No anion gap or metabolic acidosis. Continue consistent carbohydrate diet. Patient is eating better. 7. Bilateral lower extremity edema. DVT was negative. Continue to monitor. DWAIN stockings. 8. Hyponatremia. Improved continue to monitor. 9. Hypertension. Monitor blood pressure and start antihypertensives as necessary. 10. Dyslipidemia. Continue home simvastatin. 11. History of pulmonary medicine. Continue Eliquis. 12. Weakness. Patient is improving but may need 1 more day of physical therapy for discharge home tomorrow. DVT Prophylaxis: Full anticoagulation with Eliquis Disposition: Pending physical therapy, discharge most likely tomorrow VS,José Antonio, I+O VS, José Antonio, I+O Laboratory Tests 12/10/20 13:26 12/11/20 07:42 Vital Signs Date Time Temp Pulse Resp B/P (MAP) Pulse Ox O2 Delivery O2 Flow Rate FiO2 12/11/20 09:00 94 Room Air 12/11/20 06:00 96.6 85 17 168/92 (117) 12/10/20 15:52 2.0 I&O- Last 24 Hours up to 6 AM 12/11/20 06:00 Intake Total 560 ml Output Total 1150 ml Balance -590 ml MASON BELL DO Dec 11, 2020 11:35
[2020-12-11 14:00] VITALS: BP 169/78
[2020-12-11] MEDS: CEFDINIR 300 MG CAP (OMNICEF) PO SCH (20:56)
[2020-12-11] MEDS: SIMVASTATIN 40 MG TAB PO SCH (20:56)
[2020-12-11 21:00] VITALS: O2SAT 95
[2020-12-11 22:00] VITALS: BP 145/84
[2020-12-12 06:00] VITALS: BP 141/81
[2020-12-12 06:32] LABS: HEMATOCRIT 36.2 % (36.0-47.0); HEMOGLOBIN 11.9 g/dl (12.0-15.5); MEAN CORPUSCULAR HEMOGLOBIN 33.7 pg (27.0-33.0); MEAN CORPUSCULAR HGB CONC 32.9 g/dl (32.0-36.5); MEAN CORPUSCULAR VOLUME 102.5 fl (80.0-96.0); PLATELET COUNT, AUTOMATED 193 10^3/uL (150-450); RED BLOOD COUNT 3.53 10^6/uL (4.00-5.40); WHITE BLOOD COUNT 10.9 10^3/uL (4.0-10.0)
[2020-12-12 07:01] LABS: CALCIUM LEVEL 9.1 MG/DL (8.8-10.2); CREATININE FOR GFR 0.96 MG/DL (0.55-1.30); GLOMERULAR FILTRATION RATE 59.1 (>32); MAGNESIUM LEVEL 2.3 MG/DL (1.8-2.4); POTASSIUM SERUM 4.1 MEQ/L (3.5-5.1)
[2020-12-12 07:16] LABS: ATYPICAL LYMPH 2 % (0-5); LYMPHOCYTES 20 % (16-44); METAMYELOCYTES 3 % (0-0); MONOCYTES 2 % (0-5); MYELOCYTES 3 % (0-0); NEUTROPHILS 70 % (28-66)
[2020-12-12 07:17] LABS: PLATELET ESTIMATE NORMAL (NORMAL)
[2020-12-12 07:18] LABS: POIKILOCYTOSIS 1+; SMUDGE CELLS 1+
[2020-12-12] MEDS: HumaLOG INSULIN (NovoLOG) PER UNIT SC SCH ×4 (08:12→21:00)
[2020-12-12] MEDS: POTASSIUM CHLORIDE 10 MEQ SR TABLET PO SCH ×2 (08:13→21:20)
[2020-12-12] MEDS: MULTIVITAMINS/MINERALS THERAP 1 TAB PO SCH (08:13)
[2020-12-12] MEDS: CEFDINIR 300 MG CAP (OMNICEF) PO SCH ×2 (08:13→21:20)
[2020-12-12] MEDS: FUROSEMIDE 40 MG TAB PO SCH (08:14)
[2020-12-12] MEDS: APIXABAN 5 MG TAB (ELIQUIS) PO SCH ×2 (08:14→21:20)
[2020-12-12] MEDS: SITagliptin 50 MG TAB (JANUVIA) PO SCH (08:16)
[2020-12-12 09:00] VITALS: O2SAT 95
[2020-12-12] MEDS: LEVEMIR (INSULIN DETEMIR) 1 UNITS/0.01ML SC SCH (09:33)
--- NOTE | 2020-12-12 12:25 | IPNPDOC ---
Text Note Date of Service The patient was seen on 12/12/20. NOTE Subjective: Patient is an 85-year-old female who presented to hospital with ge neralized weakness. Patient stated she was feeling weak over the past 3 to 4 days prior to coming in. Patient is feeling much better today however, she is still struggling to get in and out of bed and get to and from the bathroom. Patient's weakness present may be secondary to her urinary tract infection combined with dehydration. Patient has not been hydrated and is eating drinking normally and denies any pain at this time. Review of systems: General: Patient denies fevers HEENT: Patient denies headaches Cardiovascular: Patient denies chest pain Respiratory: Patient denies shortness of breath, cough GI: Patient denies abdominal pain, nausea, vomiting, diarrhea : Patient denies increased frequency or pain with urination Extremities: Patient denies swelling or pain in extremities Neurological: Patient denies numbness or tingling in legs Physical exam: Vitals: See below General: Alert and oriented female who was sitting up in bed eating breakfast when I walked in the room. Patient not appear to be in any acute distress. HEENT: Normocephalic, atraumatic, moist mucous membranes. Neck: No lymphadenopathy or thyromegaly Cardiac: Regular rate and rhythm, no murmurs, normal S1, normal S2 Pulm: Bibasilar crackles heard in the lower lung rizo, clear to auscultation the upper lung rizo. Abd: Nondistended, nontender to palpation, normal bowel sounds Ext: Patient has edema on the dorsum of the left foot, trace edema on the right foot and ankles bilaterally Labs: See below Imaging: No new imaging has been performed Assessment/plan: 85-year-old female with a history of stage IV breast cancer presented to hospital feeling weak. 1. Metabolic encephalopathy likely due to urinary tract infection electrolyte disturbance. UA indicated possible urinary tract infection. Patient was started on IV ceftriaxone. Transition to oral cefdinir today. Blood cultures showed staph hominis which is sensitive although I do believe this is a contaminant. Patient's MRSA PCR was negative. The urine culture appeared contaminated. We will continue cefdinir for total of 7 days. 2. Lactic acidosis likely due to cat ptosis. Resolved with IV fluid hydration. 3. Hypokalemia likely due to increased oral intake. Potassium is now within normal range. We will continue to monitor. 4. Question metastatic CT of the skull. 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 We will need to continue to monitor this but this can be followed outpatient. 5. Uncontrolled type 2 diabetes. Patient on dexamethasone last A1c was 10.7. Continue sliding scale insulin. I started patient on Lovenox 10 units this morning we will continue to monitor. 6. Ketosis, likely starvation ketosis, resolved. We will continue to monitor. Patient is feeling better. 7. Bilateral lower extremity edema. DVT ultrasound was negative. Continue to monitor. DWAIN stockings. 8. Hyponatremia. Improved with fluid hydration. Continue to monitor. 9. Hypertension. Monitor the patient's blood pressure and start antihypertensive therapy as necessary. 10. Dyslipidemia. Continue home simvastatin. 11. History of pulmonary embolism. Continue Eliquis. 12. Weakness. Patient is improving but will need to continue work physical therapy until she is safe to go home. DVT Prophylaxis: Full anticoagulation with Eliquis Disposition: Need to continue to work with PT VS,José Antonio, I+O VS, José Antonio, I+O Laboratory Tests 12/12/20 06:01 Vital Signs Date Time Temp Pulse Resp B/P (MAP) Pulse Ox O2 Delivery O2 Flow Rate FiO2 12/12/20 09:00 95 Room Air 12/12/20 06:00 97.8 80 18 141/81 (101) 2.0 I&O- Last 24 Hours up to 6 AM 12/12/20 06:00 Intake Total 1180 ml Output Total 600 ml Balance 580 ml MASON BELL DO Dec 12, 2020 12:25
[2020-12-12 14:00] VITALS: BP 164/79
--- NOTE | 2020-12-12 16:33 | ECGEPIP ---
[facility] - ED Test Date: 2020-12-09 Pat Name: SADAF WILLINGHAM Department: Room: [place] [address] Gender: Female Assembly Instructions Writer: carlos : 1935 Requested By: FRANKO ERVIN PA-C Order Number: [id number] Reading MD: Yasmin Chaves Measurements Intervals [place] Rate: 111 P: 38 TN: 140 QRS: -26 QRSD: 72 T: 61 QT: 358 QTc: 486 Interpretive Statements Sinus tachycardia Minimal voltage criteria for LVH, may be normal variant ( R in aVL ) Inferior infarct , age undetermined prolonged qtc No prior Electronically Signed on 12-12-2020 16:33:31 EDT by Yasmin Chaves
[2020-12-12] MEDS ORDERED: NS 1,000 ML IV ONE (21:10)
[2020-12-12] MEDS ORDERED: HumaLOG INSULIN (NovoLOG) PER UNIT SC ONE (21:10)
[2020-12-12] MEDS: SIMVASTATIN 40 MG TAB PO SCH (21:20)
[2020-12-12 21:28] LABS: VENOUS BASE EXCESS 0.8 (-2.0-2.0); VENOUS HCO3 23.7 MEQ/L (23.0-27.0); VENOUS O2 SATURATION 98.7 % (60.0-80.0); VENOUS PARTIAL PRESSURE CO2 32.3 mmHg (38.0-50.0); VENOUS PARTIAL PRESSURE O2 177.3 mmHg (30.0-50.0); VENOUS PH 7.483 UNITS (7.330-7.430); VENOUS STANDARD HCO3 25.2 MEQ/L; VENOUS TOTAL CO2 24.7 MEQ/L (24.0-28.0)
[2020-12-12 21:34] LABS: HEMATOCRIT 35.7 % (36.0-47.0); HEMOGLOBIN 11.7 g/dl (12.0-15.5); MEAN CORPUSCULAR HEMOGLOBIN 34.4 pg (27.0-33.0); MEAN CORPUSCULAR HGB CONC 32.8 g/dl (32.0-36.5); PLATELET COUNT, AUTOMATED 196 10^3/uL (150-450); WHITE BLOOD COUNT 10.7 10^3/uL (4.0-10.0)
[2020-12-12 22:00] VITALS: BP 152/83
[2020-12-12 22:00] LABS: ACETONE/KETONE 1.83 MG/DL (<2.81); CALCIUM LEVEL 9.2 MG/DL (8.8-10.2); CREATININE FOR GFR 1.1 MG/DL (0.55-1.30); GLOMERULAR FILTRATION RATE 50.5 (>32); POTASSIUM SERUM 4.9 MEQ/L (3.5-5.1)
[2020-12-12] MEDS ORDERED: LEVEMIR (INSULIN DETEMIR) 1 UNITS/0.01ML SC ONE (22:40)
[2020-12-13 06:00] VITALS: BP 149/83
[2020-12-13 06:29] LABS: HEMATOCRIT 35.8 % (36.0-47.0); HEMOGLOBIN 11.6 g/dl (12.0-15.5); MEAN CORPUSCULAR HEMOGLOBIN 33.6 pg (27.0-33.0); MEAN CORPUSCULAR HGB CONC 32.4 g/dl (32.0-36.5); MEAN CORPUSCULAR VOLUME 103.8 fl (80.0-96.0); PLATELET COUNT, AUTOMATED 196 10^3/uL (150-450); RED BLOOD COUNT 3.45 10^6/uL (4.00-5.40); WHITE BLOOD COUNT 10.5 10^3/uL (4.0-10.0)
[2020-12-13 06:50] LABS: BLOOD UREA NITROGEN 26 MG/DL (7-18); CALCIUM LEVEL 9.2 MG/DL (8.8-10.2); CARBON DIOXIDE LEVEL 27 MEQ/L (21-32); CHLORIDE LEVEL 108 MEQ/L (98-107); CREATININE FOR GFR 0.71 MG/DL (0.55-1.30); GLOMERULAR FILTRATION RATE > 60.0 (>32); GLUCOSE, FASTING 176 MG/DL (70-100); MAGNESIUM LEVEL 2.3 MG/DL (1.8-2.4); POTASSIUM SERUM 4.1 MEQ/L (3.5-5.1); SODIUM LEVEL 140 MEQ/L (136-145)
[2020-12-13 07:06] LABS: ANISOCYTOSIS 1+; ATYPICAL LYMPH 9 % (0-5); LYMPHOCYTES 18 % (16-44); METAMYELOCYTES 8 % (0-0); MONOCYTES 6 % (0-5); NEUTROPHILS 59 % (28-66); PLATELET ESTIMATE NORMAL (NORMAL); POIKILOCYTOSIS 1+; POLYCHROMASIA 1+
[2020-12-13 07:28] VITALS: O2SAT 92
[2020-12-13] MEDS: CEFDINIR 300 MG CAP (OMNICEF) PO SCH (08:01)
[2020-12-13] MEDS: MULTIVITAMINS/MINERALS THERAP 1 TAB PO SCH (08:01)
[2020-12-13] MEDS: POTASSIUM CHLORIDE 10 MEQ SR TABLET PO SCH (08:01)
[2020-12-13] MEDS: FUROSEMIDE 40 MG TAB PO SCH (08:01)
[2020-12-13] MEDS: APIXABAN 5 MG TAB (ELIQUIS) PO SCH (08:01)
[2020-12-13] MEDS: LEVEMIR (INSULIN DETEMIR) 1 UNITS/0.01ML SC SCH (08:02)
[2020-12-13] MEDS: HumaLOG INSULIN (NovoLOG) PER UNIT SC SCH ×3 (08:02→17:55)
[2020-12-13] MEDS: SITagliptin 50 MG TAB (JANUVIA) PO SCH (08:05)
--- NOTE | 2020-12-13 10:53 | IPNPDOC ---
Text Note Date of Service The patient was seen on 12/13/20. NOTE Subjective: 85-year-old female who initially presented with generalized weakne ss. Patient has been feeling weak over the past 3 to 4 days prior to coming in. Patient is feeling much better however she is struggling to get in and out of bed and get to the bathroom while working physical therapy. Patient weakness may be secondary to her urinary tract infection combined with dehydration however, after she has been rehydrated and being treated for UTI, she is still having problems with weakness. Patient is otherwise feeling well does not have any complaints today. Review of systems: General: Patient denies fevers HEENT: Patient denies headaches Cardiovascular: Patient denies chest pain Respiratory: Patient denies shortness of breath, cough GI: Patient denies abdominal pain, nausea, vomiting, diarrhea : Patient denies increased frequency or pain with urination Extremities: Patient denies swelling or pain in extremities Neurological: Patient denies numbness or tingling in legs Physical exam: Vitals: See below General: Alert and oriented female patient was sitting up eating breakfast when I walked in the room. Patient not appear to be in any acute distress. HEENT: Normocephalic, atraumatic, moist mucous membranes. Neck: No lymphadenopathy or thyromegaly Cardiac: Regular rate and rhythm, no murmurs, normal S1, normal S2 Pulm: Clear to auscultation bilaterally. No wheezes, rhonchi, rales Abd: Nondistended, nontender to palpation, normal bowel sounds Ext: Edema of the dorsum of the left foot, trace edema on the right foot and ankles bilaterally Labs: See below Imaging: No new imaging has been performed. Assessment/plan: 85-year-old female with a history of stage IV breast cancer presented to the hospital with progressive weakness 1. Metabolic encephalopathy likely secondary to urinary tract infection and electrolyte disturbance. This is been adequately treated and we will continue to monitor. Patient is now on oral cefdinir. Blood culture showed staph hominis but this is most likely to be contaminant. Patient will continue to work with physical therapy. We will continue cefdinir for total of 7 days. 2. Lactic acidosis, resolved with IV fluid hydration. 3. Hypokalemia likely due to increased oral intake. Potassium is now normal. Continue to monitor. 4. Question metastatic foci found on CT of skull. Patient has known mets to her hip from breast cancer however, CT of the head showed multiple sclerotic foci in the skull. Continue to monitor and can be followed outpatient. 5. Uncontrolled type 2 diabetes. Patient is on dexamethasone for her cancer. Last A1c was 10.7. Patient had an episode of hyperglycemia above 500 yesterday. Patient's sugar came back to normal with 10 units of Levemir last night. I will do 10 units of Levemir twice daily and once patient is discharged she can do 20 units of glargine insulin at home. 6. Ketosis, likely starvation ketosis, resolved. Patient is feeling better. 7. Bilateral lower extremity edema. DVT ruled out. Continue to monitor. DWAIN stockings. 8. Hyponatremia, resolved with fluid hydration. Continue to monitor. 9. Hypertension. Monitor the patient's blood pressure and start antihypertensive therapy as necessary. 10. Dyslipidemia. Continue home simvastatin. 11. History of pulmonary embolism. Continue Eliquis. 12. Weakness. Patient is improving but PT is now recommending longterm facility placement for subacute rehab DVT Prophylaxis: Full anticoagulation with Eliquis Disposition: Pending placement for rehab VS,José Antonio, I+O VS, José Antonio, I+O Laboratory Tests 12/12/20 21:23 12/13/20 05:53 Vital Signs Date Time Temp Pulse Resp B/P (MAP) Pulse Ox O2 Delivery O2 Flow Rate FiO2 12/13/20 07:28 92 Room Air 12/13/20 06:00 97.1 72 18 149/83 (105) 12/12/20 14:00 I&O- Last 24 Hours up to 6 AM 12/13/20 06:00 Intake Total 3180 ml Output Total 500 ml Balance 2680 ml MASON BELL DO Dec 13, 2020 10:53
[2020-12-13 14:00] VITALS: BP 155/89
--- NOTE | 2020-12-13 14:47 | DS.PDOC ---
Discharge Summary General Date of Admission Dec 10, 2020 at 02:54 Date of Discharge 12/13/2020 Primary Care Physician: Joseph Roy MD Attending Physician: MASON BELL DO Discharge Summary PROCEDURES PERFORMED DURING STAY: None. ADMITTING DIAGNOSES: 1. Metabolic encephalopathy likely due to urinary tract infection and electrolyte disturbance. 2. Lactic acidosis likely due to ketosis, less likely dehydration 3. Hypokalemia likely due to decreased oral intake 4. Questionable metastatic malignancy of the skull 5. Uncontrolled diabetes mellitus 6. Ketosis likely starvation ketosis 7. Bilateral lower extremity edema and pain 8. Hyponatremia, chronic 9. Hypertension 10. Dyslipidemia DISCHARGE DIAGNOSES: 1. Metabolic encephalopathy likely secondary to urinary tract infection and electrolyte disturbance, resolved. 2. Lactic acidosis, resolved 3. Hypokalemia, improved 4. Question bony metastatic foci found on CT of head 5. Uncontrolled type 2 diabetes 6. Starvation ketosis 7. Bilateral lower extremity edema 8. Hypernatremia, resolved 9. Hypertension 10. Dyslipidemia 11. History of pulmonary embolism 12. Weakness COMPLICATIONS/CHIEF COMPLAINT: Altered Mental Status,Hyperglycemia,Hypokalemia,Ne. HISTORY OF PRESENT ILLNESS: Patient is an 85-year-old female presented to the hospital on 12/13/2020 with a history of generalized weakness. Patient states she had been feeling weak over the past 3 to 4 days prior to coming in. Patient was brought to the hospital via EMS. Patient appeared very sleepy but was able to answer questions with reorientation at times. Patient stated she felt thirsty, sleepy, and weak. Patient says she had a poor appetite. Patient denies any fevers or chest pain. HOSPITAL COURSE: Patient was found to have urinary tract infection on urinalysis. Culture was contaminated so there was no clinical useful information that was gathered from the culture. Patient was initially started on ceftriaxone and appeared more with it later on in the day and on hospitalization day 2. Patient was doing much better and was working with physical therapy but was unable to be safely discharged. On hospitalization day 3, patient continued to improve however, she did have some elevated blood sugars. Patient was started on Levemir 10 units in the morning but her sugars continue to climb throughout the day on 12/12/2020. Patient had received 10 units of Levemir and 16 units of rapid acting insulin on the night of 12/12/2020 which did bring the sugar back into the 100 range on the morning of 12/13/2020. Patient did not feel any issues or symptoms during this time. Patient continued to improve however, she should continue to struggle with physical therapy. The decision was made to see if the patient met criteria for acute rehabilitation placement and the patient did. Patient was deemed medically ready for acute rehab and was discharged to the acute rehab unit on 12/13/2020. Patient should be on Levemir 10 units twice daily in order to control her sugar. DISCHARGE MEDICATIONS: Please see below. ALLERGIES: Please see below. PHYSICAL EXAMINATION ON DISCHARGE: VITAL SIGNS: Please see below. General: Alert and oriented female patient who was sitting up eating breakfast when I walked in the room. Patient did not appear to be in any acute distress. HEENT: Normocephalic, atraumatic, moist mucous membranes. Neck: No lymphadenopathy or thyromegaly Cardiac: Regular rate and rhythm, no murmurs, normal S1, normal S2 Pulm: Clear to auscultation bilaterally. No wheezes, rhonchi, rales Abd: Nondistended, nontender to palpation, normal bowel sounds Ext: There is edema in the dorsum of the left foot, trace edema on the right foot and heels bilaterally LABORATORY DATA: Please see below. IMAGING: Chest x-ray performed on 12/11/2020 is reported to show limited evaluation due to patient positioning and poor inspiratory effort. No definite infiltrates. No consolidation. No right-sided pleural effusion is seen. No pneumothorax. CT of the head without contrast performed on 12/09/2020 is reported to show no acute intracranial pathology is appreciated. Chronic atrophic microischemic changes. Multiple sclerotic skull foci, of unclear significance. Possible metastatic disease. Clinical correlation is suggested. Duplex lower extremity bilateral ultrasound performed on 12/10/2020 was reported t o show no evidence of DVT (both legs examined) PROGNOSIS: Fair ACTIVITY: As tolerated. DIET: Consistent carbohydrate DISCHARGE PLAN: Discharge to acute rehab unit DISPOSITION: . DISCHARGE INSTRUCTIONS: 1. Follow the instructions of the acute rehab unit provider, Dr. Winters ITEMS TO FOLLOWUP ON ON OUTPATIENT: 1. CT finding of possible metastatic lesions to the skull. DISCHARGE CONDITION: Stable. TIME SPENT ON DISCHARGE: 25 minutes. Vital Signs/I&Os Vital Signs Date Time Temp Pulse Resp B/P (MAP) Pulse Ox O2 Delivery O2 Flow Rate FiO2 12/13/20 07:28 92 Room Air 12/13/20 06:00 97.1 72 18 149/83 (105) 12/12/20 14:00 I&O- Last 24 Hours up to 6 AM 12/13/20 06:00 Intake Total 3180 ml Output Total 500 ml Balance 2680 ml Laboratory Data Labs 24H Laboratory Tests 2 12/12/20 16:30: Bedside Glucose (Misc Panel) 439H 12/12/20 20:59: Bedside Glucose (Misc Panel) 507*H 12/12/20 21:23: Nucleated Red Blood Cells % (auto) 1.7H, Blood Gas Bicarbonate Standard 25.2, Venous Blood pH 7.483H, Venous Blood Partial Pressure CO2 32.3L, Venous Blood Partial Pressure O2 177.3H, Venous Blood Total Carbon Dioxide 24.7, Venous Blood HCO3 23.7, Venous Blood Oxygen Saturation 98.7H, Venous Blood Base Excess 0.8, Anion Gap 9, Glomerular Filtration Rate 50.5, Calcium Level 9.2, B- Hydroxybutyrate 1.83 12/12/20 22:35: Bedside Glucose (Misc Panel) 371H 12/13/20 05:53: Immature Granulocyte % (Auto) , Neutrophils (%) (Auto) , Nucleated Red Blood Cells % (auto) 1.8H, Neutrophils 59, Lymphocytes (Manual) 18, Monocytes (Manual) 6H, Metamyelocytes 8H, Atypical Lymphocytes 9H, Polychromasia 1+, Poikilocytosis 1+, Anisocytosis 1+, Macrocytosis 2+, Platelet Estimate NORMAL, Anion Gap 5L, Glomerular Filtration Rate > 60.0, Calcium Level 9.2, Magnesium Level 2.3 12/13/20 11:59: Bedside Glucose (Misc Panel) 276H CBC/BMP Laboratory Tests 12/12/20 21:23 12/13/20 05:53 FSBS Laboratory Tests Test 12/12/20 16:30 12/12/20 20:59 12/12/20 22:35 12/13/20 11:59 Range/Units Bedside Glucose (Misc Panel) 439 507 371 276 83-110 MG/DL Microbiology Microbiology 12/10/20 Urine Culture - Final, Complete 12/09/20 Blood Culture - Final, Complete Staphylococcus Hominis Ssp Carlos A 12/09/20 Blood Culture - Preliminary, Resulted No Growth after 72 hours. All specime... Discharge Medications Scheduled Apixaban (Eliquis) 5 Mg Tablet, 5 MG PO BID, (Reported) Dexamethasone (Dexamethasone) 2 Mg Tablet, 2 MG PO DAILY, (Reported) Furosemide (Furosemide) 40 Mg Tablet, 40 MG PO DAILY, (Reported) Glipizide (Glipizide) 5 Mg Tablet, 5 MG PO ACB, (Reported) OBTAINED FROM EXTERNAL HISTORY Potassium Chloride (Klor-Con M10) 10 Meq Tab.er.prt, 10 MEQ PO BID, (Reported) WITH FOOD OBTAINED FROM EXTERNAL HISTORY Simvastatin (Simvastatin) 40 Mg Tablet, 40 MG PO QPM, (Reported) OBTAINED FROM EXTERNAL Sitagliptin (Januvia) 50 Mg Tablet, 50 MG PO DAILY, (Reported) OBTAINED FROM EXTERNAL HISTORY Allergies Coded Allergies: No Known Drug Allergies (Verified Allergy, Unknown, 12/09/20) MASON BELL DO Dec 13, 2020 14:47
[2020-12-13] MEDS ORDERED: LEVEMIR (INSULIN DETEMIR) 1 UNITS/0.01ML SC SCH (21:00)
== END 2020-12-13 18:19 | DRG 689 ==
LOC: M ED 20:33 → M ED INP 12-10 02:54 → M PCU 12-10 04:11 → UNDODISIN 12-10 17:55 → M MSPAV 12-10 18:09
PROVIDERS: ADMIT Internal Medicine; ATTEND Family Medicine
DX: N39.0 Urinary tract infection, site not specified (principal); G93.41 Metabolic encephalopathy; E87.2 Acidosis; E87.1 Hypo-osmolality and hyponatremia; C79.51 Secondary malignant neoplasm of bone; I10 Essential (primary) hypertension; E78.5 Hyperlipidemia, unspecified; E87.6 Hypokalemia; E11.65 Type 2 diabetes mellitus with hyperglycemia; R53.1 Weakness; E86.0 Dehydration; Z66 Do not resuscitate; E88.89 Other specified metabolic disorders; R60.0 Localized edema; Z79.01 Long term (current) use of anticoagulants; Z79.84 Long term (current) use of oral hypoglycemic drugs; Z79.899 Other long term (current) drug therapy; Z20.822 Contact with and (suspected) exposure to COVID-19; Z85.3 Personal history of malignant neoplasm of breast; Z86.711 Personal history of pulmonary embolism

== ENCOUNTER 2020-12-13 14:06 | Inpatient (IN) | payer MEDICARE ==
[~2020-12-13] VITALS: Ht 170.2 cm; Wt 90.7 kg
[~2020-12-13 14:06] MED LIST: DEXA2TA PO; ELIQ5TAB PO; FURO40TA2 PO; GLIP5TAB8 PO; POTA-136 PO; SIMV40TA20 PO; SITA50TAB PO
[2020-12-13] MEDS ORDERED: GLUCAGON INJ 1MG VIAL SC PRN (16:45)
[2020-12-13] MEDS ORDERED: GLUCOSE 4GM CHEW TABLET PO PRN (16:45)
[2020-12-13] MEDS ORDERED: DEXTROSE 50% 50 ML SYRINGE IV PRN (16:45)
[2020-12-13 18:10] VITALS: BP 181/87
[2020-12-13 20:00] VITALS: BP 182/80
[2020-12-13] MEDS: SIMVASTATIN 40 MG TAB PO SCH (20:49)
[2020-12-13] MEDS: SENNA 8.6 MG TAB (SENOKOT) PO SCH (20:49)
[2020-12-13] MEDS: DOCUSATE SODIUM 100MG CAPSULE PO SCH (20:49)
[2020-12-13] MEDS: APIXABAN 5 MG TAB (ELIQUIS) PO SCH (20:49)
[2020-12-13] MEDS: LEVEMIR (INSULIN DETEMIR) 1 UNITS/0.01ML SC SCH (20:51)
[2020-12-13] MEDS: HumaLOG INSULIN (NovoLOG) PER UNIT SC SCH (20:51)
[2020-12-13] MEDS: POTASSIUM CHLORIDE 10MEQ SR TABLET PO SCH (20:52)
[2020-12-13] MEDS ORDERED: **hydrALAZINE** 10 MG TAB PO PRN (21:00)
[2020-12-14 06:00] VITALS: BP 166/77
[2020-12-14 07:18] LABS: HEMATOCRIT 35.2 % (36.0-47.0); HEMOGLOBIN 11.7 g/dl (12.0-15.5); MEAN CORPUSCULAR HEMOGLOBIN 34.5 pg (27.0-33.0); MEAN CORPUSCULAR HGB CONC 33.2 g/dl (32.0-36.5); MEAN CORPUSCULAR VOLUME 103.8 fl (80.0-96.0); PLATELET COUNT, AUTOMATED 210 10^3/uL (150-450); RED BLOOD COUNT 3.39 10^6/uL (4.00-5.40); WHITE BLOOD COUNT 10.6 10^3/uL (4.0-10.0)
[2020-12-14 07:47] LABS: ALBUMIN 2.5 GM/DL (3.2-5.2); ALT/SGPT 62 U/L (12-78); BILIRUBIN,TOTAL 0.4 MG/DL (0.2-1.0); BLOOD UREA NITROGEN 23 MG/DL (7-18); CALCIUM LEVEL 9.1 MG/DL (8.8-10.2); CARBON DIOXIDE LEVEL 28 MEQ/L (21-32); CHLORIDE LEVEL 106 MEQ/L (98-107); CREATININE FOR GFR 0.72 MG/DL (0.55-1.30); GLOMERULAR FILTRATION RATE > 60.0 (>32); GLUCOSE, FASTING 159 MG/DL (70-100); POTASSIUM SERUM 3.7 MEQ/L (3.5-5.1); SODIUM LEVEL 140 MEQ/L (136-145); TOTAL PROTEIN 5.4 GM/DL (6.4-8.2)
[2020-12-14 08:01] LABS: EOSINOPHILS 1 % (0-3); LYMPHOCYTES 37 % (16-44); METAMYELOCYTES 2 % (0-0); MONOCYTES 3 % (0-5); NEUTROPHILS 52 % (28-66)
[2020-12-14 08:02] LABS: PLATELET ESTIMATE NORMAL (NORMAL)
[2020-12-14] MEDS ORDERED: FUROSEMIDE 40 MG TAB PO SCH (09:00)
[2020-12-14] MEDS: HumaLOG INSULIN (NovoLOG) PER UNIT SC SCH ×4 (09:18→22:33)
[2020-12-14] MEDS: DOCUSATE SODIUM 100MG CAPSULE PO SCH ×2 (09:19→22:31)
[2020-12-14] MEDS: PANTOPRAZOLE 40MG TAB (PROTONIX) PO SCH (09:19)
[2020-12-14] MEDS: APIXABAN 5 MG TAB (ELIQUIS) PO SCH ×2 (09:19→22:31)
[2020-12-14] MEDS: SITagliptin 50 MG TAB (JANUVIA) PO SCH (09:19)
[2020-12-14] MEDS: LEVEMIR (INSULIN DETEMIR) 1 UNITS/0.01ML SC SCH ×2 (09:19→22:33)
[2020-12-14] MEDS: POTASSIUM CHLORIDE 10MEQ SR TABLET PO SCH ×2 (09:19→22:31)
[2020-12-14] MEDS: MULTIVITAMINS/MINERALS THERAP 1 TAB PO SCH (09:19)
[2020-12-14 14:00] VITALS: BP 152/68
--- NOTE | 2020-12-14 14:11 | IPNPDOC ---
Text Note Date of Service The patient was seen on 12/14/20. NOTE Subjective: Patient is an 85-year-old female initially presented with generali zed weakness. Patient had been feeling weak over the past 3 to 4 days prior to admission. Patient is feeling better but is struggling with working with physical therapy. Patient was discharged from the acute care hospital to the acute rehabilitation unit yesterday, 12/13/2020. Patient states that the new unit is quieter and she is tired from therapy this morning but is otherwise feeling well. Patient does not have any other complaints at this time. Review of systems: General: Patient denies fevers HEENT: Patient denies headaches Cardiovascular: Patient denies chest pain Respiratory: Patient denies shortness of breath, cough GI: Patient denies abdominal pain, nausea, vomiting, diarrhea : Patient denies increased frequency or pain with urination Extremities: Patient denies swelling or pain in extremities Neurological: Patient denies numbness or tingling in legs Physical exam: Vitals: See below General: Alert and oriented female patient who was sitting in the bedside chair and walked in the room. Patient not appear to be in any acute distress. HEENT: Normocephalic, atraumatic, moist mucous membranes. Neck: No lymphadenopathy or thyromegaly Cardiac: Regular rate and rhythm, no murmurs, normal S1, normal S2 Pulm: Clear to auscultation bilaterally. No wheezes, rhonchi, rales Abd: Nondistended, nontender to palpation, normal bowel sounds Ext: Edema on the dorsum of the left foot, trace edema on the right foot and ankles bilaterally Labs: See below Imaging: No new imaging has been performed Assessment/plan: 85-year-old female with history of stage IV breast cancer presented to hospital with progressive weakness and has now been discharged to the acute rehab unit. 1. Metabolic encephalopathy likely secondary tract infection electrolyte disturbance. Patient has been adequately treated and will continue to monitor. Patient is now on oral cefdinir which will be continued for total of 7 days of therapy. Patient did show staph hominis on blood culture but this is most likely contaminant. Continue to work with physical therapy on the area floor. 2. Lactic acidosis, resolved with IV fluids 3. Hyperkalemia, resolved continue to monitor. 4. Questionable mass metastatic foci found on CT of the skull. 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 Continue to monitor and follow-up outpatient. 5. Uncontrolled type 2 diabetes. Patient was on dexamethasone for cancer. Last A1c was 10.7. Continue Levemir 10 units twice daily and once discharge she can be switched to 20 units of glargine once a day. 6. Ketosis, likely starvation, resolved. Patient is feeling better. 7. Bilateral lower extremity edema. DVT ruled out with ultrasound. Continue to monitor. DWAIN stockings. 8. Hyponatremia, resolved. Continue to monitor. 9. Hypertension. Monitor patient's blood pressure and start antihypertensive therapy as necessary. 9. Dyslipidemia. Continue home simvastatin. 11. History of pulmonary embolism. Continue Eliquis. 12. Weakness. Patient is improving and will continue to work with the ARU staff. DVT Prophylaxis: Anticoagulation with Eliquis Disposition: Discharge per Dr. Winters and the ARU staff VS,José Antonio, I+O VSJosé Antonio, I+O Laboratory Tests 12/14/20 06:11 Vital Signs Date Time Temp Pulse Resp B/P (MAP) Pulse Ox O2 Delivery O2 Flow Rate FiO2 12/14/20 06:00 98.1 84 18 166/77 (106) 97 Room Air I&O- Last 24 Hours up to 6 AM 12/14/20 06:00 Intake Total 60 ml Balance 60 ml MASON BELL DO Dec 14, 2020 14:11
--- NOTE | 2020-12-14 14:40 | HPEPDOC ---
Director Of Bands Note DATE OF ADMISSION: 12-13-20 DATE OF SERVICE: 12-14-20 TIME OF ADMISSION: Please refer to physician's admission order. SOURCE OF ADMISSION INFORMATION: [facility] record and patient CHIEF COMPLAINT: weakness in setting of metabolic encephalopathy HISTORY OF PRESENT ILLNESS: 85F pmh HTN, HLD, Afib, PE, diastolic CHF, DM, stage 4 breast cancer presented to [facility] ED on 12-10-20 complaining of weakness and was diagnosed with metabolic encephalopathy in setting of sepsis due to UTI and electrolyte abnormalities. She also was noticed to have ketosis due to starvation which improved. There was a concern for skull metastases with CTH showing, "Multiple sclerotic skull foci, of unclear significance. Possible metastatic disease" and given her history of known metastases was instructed to follow-up with her oncologist as outpatient. She had persistent deficits in mobility and ADLs and deemed medically appropriate for discharge to ARU on 12-13-20. REVIEW OF SYSTEMS: The following is a completed review of systems and has been reviewed. Review of systems otherwise unremarkable. PAIN: Patient self reports no pain EYES: No recent vision changes EARS, NOSE, & THROAT: No throat pain, or dysphagia, or rhinorrhea CARDIOVASCULAR: Denies chest pain or palpitations PULMONARY: Denies shortness of breath GASTROINTESTINAL: Denies constipation/diarrhea GENITOURINARY: denies dysuria MUSCULOSKELETAL: generalized weakness NEUROLOGICAL:+encephalopathic, +peripheral polyneuropathy HEMATOLOGICAL: +easy bruising SKIN: ecchymotic PSYCHIATRIC: +confused All other review of systems found to be negative. PAST MEDICAL HISTORY: as per HPI PSH: patient reports no prior surgeries ALLERGIES: Please see below. MEDICATIONS: Please see below. SOCIAL HISTORY: no etoh/illicit drugs/smoking DIET: low sodium, consistent carbs PHYSICAL EXAMINATION: VITAL SIGNS: Please see below. GENERAL: Pleasant and cooperative. No acute distress. Rodriguez facies HEENT: PERRL. Extraocular movements intact. Clear conjunctiva CARDIOVASCULAR: Regular rate and rhythm. No murmurs, rubs, or gallops LUNGS: Clear to auscultation bilaterally. No wheezes. No rhonchi ABDOMEN: distended, firm, non-tender, no guarding, Normal active bowel sounds NEUROLOGICAL: Alert and oriented to self only, Cranial nerves II through XII grossly intact. Sensation decreased to light touch in stocking pattern EXTREMITIES: 4+\\5 strength bilateral upper extremities. 4\\5 strength right lower extremity. 4/5 strength in left lower extremity. SKIN: scattered ecchymosis, LABORATORY DATA: Please see below. IMAGING:Imaging documentation personally reviewed by record FUNCTIONAL STATUS: Premorbid: Independent with all activities of daily life as well as mobility On Admission:Min-Mod assist for bed mobility, functional transfers, dressing, ambulation, toileting GOALS: Mod-I for bed mobility, functional transfers, dressing, ambulation, toileting, bathing ASSESSMENT:85-year-old F with past medical history of metastatic breast cancer who presents status post weakness due to sepsis and metabolic encephalopathy PLAN: 1. Rehab-PT/OT advance mobility and ADLs, strengthen/stretch/maintain ROM all 4 limbs 2. Neuro- s/p recent metabolic encephalopathy due to hyponatremia and sepsis, continue to manage electrolytes and infection, patient able to follow commands, but appears persistently encephalopathic 3. Cardiac- hx of Afib on eliquis -HTN cont BP meds adjust as needed -HLD cont statin -diastolic CHF- daily weights, fluid restrict, lasix -medicine consulted to assist in overall management 4. Resp- monitor for infection -hx of PE on eliquis 5. 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 GI ppx- protonix 7. DVT ppx- on eliquis 8. Endo- DM on decadron with hyperglycemia cont levemir and ISS, on Januvia 9. PAin- tylenol and oxycodone 10. ID- cont Cefdinir for possible UTI and +blood culture, bacid added 11. Dispo- TBD POST ADMISSION PHYSICIAN EVALUATION: Medical and functional status: Description of medical status, medical assessment : As above. Rehabilitation diagnosis and current and prior cold morbid medical conditions as above. Risk of complications and plans to mitigate them as above. Description of functional status current status is as above. Prior status as above. Status compared to preadmission: There are no clinically significant differences between the patient's current status and the information described on the preadmission screening document. Treatment plan anticipated: Treatment plan is as described above. Required disciplines including physical therapy, occupational therapy, others as noted above. Intensity of services:3 hours a day, 6 days a week. Special considerations: There are no specific special or safety considerations that would likely preclude immediate implementation of an intensive rehabilit ation program or subsequently influence the plan of care ATTESTATION: Considering all the information above, it is my best judgment that this patient requires intensive rehabilitation therapy as described above and an inpatient hospital environment due to the complexity of nursing, medical, and rehabilitation needs required by the patient. Furthermore, this patient can reasonably be expected to participate in an benefit from an inpatient rehabilitation stay with an interdisciplinary team approach to the delivery of rehabilitation care under the direction and supervision of rehabilitation phys abelardoan. PROGNOSIS: good ESTIMATED LENGTH OF STAY:14-16 days. PROJECTED DISCHARGE DESTINATION: Home with family support and any durable medical equipment required to increase functional safety and mobility TIME SPENT COUNSELING AND COORDINATING INITIAL CARE: Greater than 70 minutes. Vital Signs Vital Sign - Last 24 Hours 12/13/20 12/13/20 12/14/20 18:10 20:00 06:00 Temp 97.2 97.1 98.1 Pulse 90 86 84 Resp 18 19 18 B/P (MAP) 181/87 (118) 182/80 (114) 166/77 (106) Pulse Ox 97 96 97 O2 Delivery Room Air Room Air Room Air Laboratory Data CBC/BMP Laboratory Tests 12/14/20 06:11 Labs 24H Laboratory Tests 2 12/13/20 19:33: Bedside Glucose (Misc Panel) 394H 12/14/20 04:58: Bedside Glucose (Misc Panel) 164H 12/14/20 06:11: Immature Granulocyte % (Auto) , Neutrophils (%) (Auto) , Nucleated Red Blood Cells % (auto) 1.8H, Neutrophils 52, Band Neutrophils 5, Lymphocytes (Manual) 37, Monocytes (Manual) 3, Eosinophils (Manual) 1, Metamyelocytes 2H, Platelet Estimate NORMAL, Anion Gap 6L, Glomerular Filtration Rate > 60.0, Calcium Level 9.1, Total Bilirubin 0.4, Aspartate Amino Transf (AST/SGOT) 28, Alanine Aminotransferase (ALT/SGPT) 62, Alkaline Phosphatase 71, Total Protein 5.4L, Albumin 2.5L, Albumin/Globulin Ratio 0.9L 12/14/20 12:08: Bedside Glucose (Misc Panel) 329H FSBS Laboratory Tests Test 12/13/20 19:33 12/14/20 04:58 12/14/20 12:08 Range/Units Bedside Glucose (Misc Panel) 394 164 329 83-110 MG/DL Home Medications Scheduled Apixaban (Eliquis) 5 Mg Tablet, 5 MG PO BID, (Reported) Dexamethasone (Dexamethasone) 2 Mg Tablet, 2 MG PO DAILY, (Reported) Furosemide (Furosemide) 40 Mg Tablet, 40 MG PO DAILY, (Reported) Glipizide (Glipizide) 5 Mg Tablet, 5 MG PO ACB, (Reported) OBTAINED FROM EXTERNAL HISTORY Potassium Chloride (Klor-Con M10) 10 Meq Tab.er.prt, 10 MEQ PO BID, (Reported) WITH FOOD OBTAINED FROM EXTERNAL HISTORY Simvastatin (Simvastatin) 40 Mg Tablet, 40 MG PO QPM, (Reported) OBTAINED FROM EXTERNAL Sitagliptin (Januvia) 50 Mg Tablet, 50 MG PO DAILY, (Reported) OBTAINED FROM EXTERNAL HISTORY Allergies Coded Allergies: No Known Drug Allergies (Verified Allergy, Unknown, 12/09/20) A-FIB/CHADSVASC A-FIB History Current/History of A-Fib/PAF?: Yes Current PO Anticoag Therapy: Yes RAZA RAMOS MD Dec 14, 2020 14:40
[2020-12-14] MEDS ORDERED: CEFDINIR 300 MG CAP (OMNICEF) PO SCH (15:30)
[2020-12-14] MEDS: LACTOBACILLUS ACIDOPHILUS CAP (BACID) PO SCH ×2 (17:29→22:31)
[2020-12-14] MEDS: FUROSEMIDE 40 MG TAB PO SCH (17:29)
[2020-12-14 20:06] VITALS: BP 160/92
[2020-12-14] MEDS: SIMVASTATIN 40 MG TAB PO SCH (22:32)
[2020-12-14] MEDS: SENNA 8.6 MG TAB (SENOKOT) PO SCH (22:32)
[2020-12-14] MEDS: CEFDINIR 300 MG CAP (OMNICEF) PO SCH (22:33)
[2020-12-15 06:31] VITALS: BP 140/82
[2020-12-15] MEDS: MULTIVITAMINS/MINERALS THERAP 1 TAB PO SCH (07:58)
[2020-12-15] MEDS: LEVEMIR (INSULIN DETEMIR) 1 UNITS/0.01ML SC SCH ×2 (07:59→21:38)
[2020-12-15] MEDS: FUROSEMIDE 40 MG TAB PO SCH ×2 (07:59→16:40)
[2020-12-15] MEDS: HumaLOG INSULIN (NovoLOG) PER UNIT SC SCH ×4 (07:59→21:39)
[2020-12-15] MEDS: LACTOBACILLUS ACIDOPHILUS CAP (BACID) PO SCH ×4 (08:00→21:39)
[2020-12-15] MEDS: POTASSIUM CHLORIDE 10MEQ SR TABLET PO SCH ×2 (08:00→21:40)
[2020-12-15] MEDS: APIXABAN 5 MG TAB (ELIQUIS) PO SCH ×2 (08:00→21:40)
[2020-12-15] MEDS: PANTOPRAZOLE 40MG TAB (PROTONIX) PO SCH (08:00)
[2020-12-15] MEDS: DOCUSATE SODIUM 100MG CAPSULE PO SCH ×2 (08:00→21:39)
[2020-12-15] MEDS: CEFDINIR 300 MG CAP (OMNICEF) PO SCH ×2 (08:00→21:39)
[2020-12-15] MEDS: SITagliptin 50 MG TAB (JANUVIA) PO SCH (08:00)
--- NOTE | 2020-12-15 09:18 | IPNPDOC ---
PM&R Progress Note DATE OF SERVICE: Dec 15, 2020 Shank Faker Progress Note Subjective: patient stating she feels good today, denies pain, did not sleep too well but does not want a sleep aid. REVIEW OF SYSTEMS: The following is a completed review of systems and has been reviewed. Review of systems otherwise unremarkable. PAIN: Patient self reports no pain EYES: No recent vision changes EARS, NOSE, & THROAT: No throat pain, or dysphagia, or rhinorrhea CARDIOVASCULAR: Denies chest pain or palpitations PULMONARY: Denies shortness of breath GASTROINTESTINAL: Denies constipation/diarrhea GENITOURINARY: denies dysuria MUSCULOSKELETAL: generalized weakness NEUROLOGICAL:+encephalopathic, +peripheral polyneuropathy HEMATOLOGICAL: +easy bruising SKIN: ecchymotic PSYCHIATRIC: unremarkable All other review of systems found to be negative. PHYSICAL EXAMINATION: VITAL SIGNS: Please see below. GENERAL: Pleasant and cooperative. No acute distress. Rodriguez facies HEENT: PERRL. Extraocular movements intact. Clear conjunctiva CARDIOVASCULAR: Regular rate and rhythm. No murmurs, rubs, or gallops LUNGS: Clear to auscultation bilaterally. No wheezes. No rhonchi ABDOMEN: distended, firm, non-tender, no guarding, Normal active bowel sounds NEUROLOGICAL: Alert and oriented x3 Cranial nerves II through XII grossly intact. Sensation decreased to light touch in stocking pattern EXTREMITIES: 4+\5 strength bilateral upper extremities. 4\5 strength right lower extremity. 4/5 strength in left lower extremity. +pitting edema bilat LE SKIN: scattered ecchymosis, ASSESSMENT:85-year-old F with past medical history of metastatic breast cancer who presents status post weakness due to sepsis and metabolic encephalopathy PLAN: 1. Rehab-PT/OT advance mobility and ADLs, strengthen/stretch/maintain ROM all 4 limbs 2. Neuro- s/p recent metabolic encephalopathy due to hyponatremia and sepsis, continue to manage electrolytes and infection, patient able to follow commands and is oriented today x3 3. Cardiac- hx of Afib on eliquis -HTN with elevated blood pressures, will change hydralazine to 30mg TID scheduled with holding parameters -HLD cont statin -diastolic CHF- daily weights, fluid restrict, lasix (increased to 40mg BID) -medicine consulted to assist in overall management 4. Resp- monitor for infection -hx of PE on eliquis 5. 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 GI ppx- protonix 7. DVT ppx- on eliquis 8. Endo- DM on decadron with hyperglycemia cont levemir (increase to 15 units BID) and ISS, on Januvia 9. PAin- tylenol and oxycodone 10. ID- cont Cefdinir for possible UTI and +blood culture, bacid added 11. Dispo- TBD Allergies Coded Allergies: No Known Drug Allergies (Verified Allergy, Unknown, 12/09/20) Vital Signs Vital Signs Date Time Temp Pulse Resp B/P (MAP) Pulse Ox O2 Delivery O2 Flow Rate FiO2 12/15/20 06:31 98.5 94 18 140/82 (101) 100 Room Air Laboratory Data Labs 24H Laboratory Tests 2 12/14/20 12:08: Bedside Glucose (Misc Panel) 329H 12/14/20 16:35: Bedside Glucose (Misc Panel) 307H 12/14/20 19:57: Bedside Glucose (Misc Panel) 412H 12/15/20 06:12: Bedside Glucose (Misc Panel) 153H Current Medications Current Medications Current Medications Medications (Trade) Dose Ordered Sig/Marley Route PRN Reason Start Time Stop Time Status Last Admin Dose Admin Acetaminophen (Tylenol Tab) 650 mg Q4HP PRN PO MILD PAIN (PS 1-4) 12/13/20 16:45 Apixaban (Eliquis) 5 mg BID PO 12/13/20 21:00 12/15/20 08:00 Cefdinir (Omnicef) 300 mg BID PO 12/14/20 15:30 12/14/20 15:53 DC 12/14/20 15:39 Cefdinir (Omnicef) 300 mg BID PO 12/14/20 23:00 12/16/20 21:01 12/15/20 08:00 Dexamethasone (Decadron) 2 mg DAILY PO 12/14/20 09:00 12/15/20 08:00 Dextrose (Dextrose 50%) 25 ml ASDIRECTED PRN IV SEE LABEL COMMENTS 12/13/20 16:45 Docusate Sodium (Colace) 100 mg BID PO 12/13/20 21:00 12/15/20 08:00 Furosemide (Lasix) 40 mg BID@09,17 PO 12/14/20 17:00 12/15/20 07:59 Furosemide (Lasix) 40 mg DAILY PO 12/14/20 09:00 12/14/20 15:55 DC 12/14/20 09:20 Glucagon (Glucagon) 1 mg ASDIRECTED PRN SC SEE LABEL COMMENTS 12/13/20 16:45 Glucose (Glucose) 16 GM ASDIRECTED PRN PO SEE LABEL COMMENTS 12/13/20 16:45 Hydralazine HCl (Apresoline) 10 mg Q12HP PRN PO sbp >180 or DBP >100 12/13/20 21:00 Insulin Detemir (Levemir Insulin) 10 units BID SC 12/13/20 21:00 12/15/20 09:15 DC 12/15/20 07:59 Insulin Detemir (Levemir Insulin) 15 units BID SC 12/15/20 21:00 UNV Insulin Human Lispro (HumaLOG INSULIN) SEE PROTOCOL TABLE AC SC 12/14/20 07:30 12/15/20 07:59 Insulin Human Lispro (HumaLOG INSULIN) SEE PROTOCOL TABLE QHS SC 12/13/20 21:00 12/14/20 22:33 Lactobacillus Acidophilus (Bacid) 1 ea WMHS PO 12/14/20 18:00 12/15/20 08:00 Multivitamins (Theragram-M) 1 tab DAILY PO 12/14/20 09:00 12/15/20 07:58 Pantoprazole Sodium (Protonix) 40 mg DAILY PO 12/14/20 09:00 12/15/20 08:00 Potassium Chloride (Micro-K Extencaps) 10 meq BID PO 12/13/20 21:00 12/15/20 08:00 Senna (Senokot) 1 tab QHS PO 12/13/20 21:00 12/14/20 22:32 Simvastatin (Zocor) 40 mg QHS PO 12/13/20 21:00 12/14/20 22:32 Sitagliptin Phosphate (Januvia) 50 mg DAILY PO 12/14/20 09:00 12/15/20 08:00 RAZA RAMOS MD Dec 15, 2020 09:18
[2020-12-15] MEDS: **hydrALAZINE HCL** 25 MG TAB PO SCH ×3 (10:37→21:40)
[2020-12-15] MEDS ORDERED: LEVEMIR (INSULIN DETEMIR) 1 UNITS/0.01ML SC ONE (12:15)
[2020-12-15 14:00] VITALS: BP 142/72
[2020-12-15 20:00] VITALS: BP 158/72
[2020-12-15] MEDS: SENNA 8.6 MG TAB (SENOKOT) PO SCH (21:39)
[2020-12-15] MEDS: SIMVASTATIN 40 MG TAB PO SCH (21:40)
[2020-12-16 05:04] VITALS: BP 158/74
[2020-12-16] MEDS: LEVEMIR (INSULIN DETEMIR) 1 UNITS/0.01ML SC SCH ×2 (08:26→21:36)
[2020-12-16] MEDS: LACTOBACILLUS ACIDOPHILUS CAP (BACID) PO SCH ×4 (08:27→21:33)
[2020-12-16] MEDS: HumaLOG INSULIN (NovoLOG) PER UNIT SC SCH ×4 (08:27→21:35)
[2020-12-16] MEDS: PANTOPRAZOLE 40MG TAB (PROTONIX) PO SCH (08:27)
[2020-12-16] MEDS: DOCUSATE SODIUM 100MG CAPSULE PO SCH ×2 (08:28→21:00)
[2020-12-16] MEDS: POTASSIUM CHLORIDE 10MEQ SR TABLET PO SCH ×2 (08:28→21:33)
[2020-12-16] MEDS: FUROSEMIDE 40 MG TAB PO SCH ×2 (08:28→17:04)
[2020-12-16] MEDS: SITagliptin 50 MG TAB (JANUVIA) PO SCH (08:28)
[2020-12-16] MEDS: MULTIVITAMINS/MINERALS THERAP 1 TAB PO SCH (08:28)
[2020-12-16] MEDS: APIXABAN 5 MG TAB (ELIQUIS) PO SCH ×2 (08:28→21:33)
[2020-12-16] MEDS: CEFDINIR 300 MG CAP (OMNICEF) PO SCH ×2 (08:28→21:33)
[2020-12-16] MEDS: **hydrALAZINE HCL** 25 MG TAB PO SCH ×3 (08:33→21:34)
[2020-12-16] MEDS: METOPROLOL TART 25 MG TABLET PO SCH ×2 (10:30→21:34)
--- NOTE | 2020-12-16 12:39 | IPNPDOC ---
PM&R Progress Note DATE OF SERVICE: Dec 16, 2020 [employer] Sealer Progress Note Subjective: Patient stating she feels ok and that her legs feel less swollen. REVIEW OF SYSTEMS: The following is a completed review of systems and has been reviewed. Review of systems otherwise unremarkable. PAIN: Patient self reports no pain EYES: No recent vision changes EARS, NOSE, & THROAT: No throat pain, or dysphagia, or rhinorrhea CARDIOVASCULAR: Denies chest pain or palpitations PULMONARY: Denies shortness of breath GASTROINTESTINAL: Denies constipation/diarrhea GENITOURINARY: denies dysuria MUSCULOSKELETAL: generalized weakness NEUROLOGICAL:+encephalopathic, +peripheral polyneuropathy HEMATOLOGICAL: +easy bruising SKIN: ecchymotic PSYCHIATRIC: unremarkable All other review of systems found to be negative. PHYSICAL EXAMINATION: VITAL SIGNS: Please see below. GENERAL: Pleasant and cooperative. No acute distress. Rodriguez facies HEENT: PERRL. Extraocular movements intact. Clear conjunctiva CARDIOVASCULAR: Regular rate and rhythm. No murmurs, rubs, or gallops LUNGS: Clear to auscultation bilaterally. No wheezes. No rhonchi ABDOMEN: distended, firm, non-tender, no guarding, Normal active bowel sounds NEUROLOGICAL: Alert and oriented x3 Cranial nerves II through XII grossly intact. Sensation decreased to light touch in stocking pattern EXTREMITIES: 4+\5 strength bilateral upper extremities. 4\5 strength right lower extremity. 4/5 strength in left lower extremity. +pitting edema bilat LE SKIN: scattered ecchymosis, ASSESSMENT:85-year-old F with past medical history of metastatic breast cancer who presents status post weakness due to sepsis and metabolic encephalopathy PLAN: 1. Rehab-PT/OT advance mobility and ADLs, strengthen/stretch/maintain ROM all 4 limbs, ambulating with RW 2. Neuro- s/p recent metabolic encephalopathy due to hyponatremia and sepsis, continue to manage electrolytes and infection, patient able to follow commands and is oriented today x3 3. Cardiac- hx of Afib on eliquis -HTN with elevated blood pressures, will change hydralazine to 30mg TID scheduled with holding parameters -HLD cont statin -diastolic CHF- daily weights, fluid restrict, lasix (increased to 40mg BID) -medicine consulted to assist in overall management 4. Resp- monitor for infection -hx of PE on eliquis 5. 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 GI ppx- protonix 7. DVT ppx- on eliquis 8. Endo- DM on decadron with hyperglycemia cont levemir (increasing to 18 units BID) and ISS, on Januvia 9. PAin- tylenol and oxycodone 10. ID- cont Cefdinir for possible UTI and +blood culture, bacid added 11. Dispo- TBD Allergies Coded Allergies: No Known Drug Allergies (Verified Allergy, Unknown, 12/09/20) Vital Signs Vital Signs Date Time Temp Pulse Resp B/P (MAP) Pulse Ox O2 Delivery O2 Flow Rate FiO2 12/16/20 10:30 100 112/58 12/16/20 05:04 97.1 18 93 Room Air Laboratory Data Labs 24H Laboratory Tests 2 12/15/20 16:33: Bedside Glucose (Misc Panel) 361H 12/15/20 20:39: Bedside Glucose (Misc Panel) 350H 12/16/20 05:27: Bedside Glucose (Misc Panel) 159H 12/16/20 11:21: Bedside Glucose (Misc Panel) 230H Current Medications Current Medications Current Medications Medications (Trade) Dose Ordered Sig/Marley Route PRN Reason Start Time Stop Time Status Last Admin Dose Admin Acetaminophen (Tylenol Tab) 650 mg Q4HP PRN PO MILD PAIN (PS 1-4) 12/13/20 16:45 Apixaban (Eliquis) 5 mg BID PO 12/13/20 21:00 12/16/20 08:28 Cefdinir (Omnicef) 300 mg BID PO 12/14/20 15:30 12/14/20 15:53 DC 12/14/20 15:39 Cefdinir (Omnicef) 300 mg BID PO 12/14/20 23:00 12/16/20 21:01 12/16/20 08:28 Dexamethasone (Decadron) 2 mg DAILY PO 12/14/20 09:00 12/16/20 08:28 Dextrose (Dextrose 50%) 25 ml ASDIRECTED PRN IV SEE LABEL COMMENTS 12/13/20 16:45 Docusate Sodium (Colace) 100 mg BID PO 12/13/20 21:00 12/16/20 08:28 Furosemide (Lasix) 40 mg BID@,17 PO 12/14/20 17:00 12/16/20 08:28 Furosemide (Lasix) 40 mg DAILY PO 12/14/20 09:00 12/14/20 15:55 DC 12/14/20 09:20 Glucagon (Glucagon) 1 mg ASDIRECTED PRN SC SEE LABEL COMMENTS 12/13/20 16:45 Glucose (Glucose) 16 GM ASDIRECTED PRN PO SEE LABEL COMMENTS 12/13/20 16:45 Hydralazine HCl (Apresoline) 10 mg Q12HP PRN PO sbp >180 or DBP >100 12/13/20 21:00 12/15/20 09:16 DC Hydralazine HCl (Apresoline) 25 mg TID PO 12/15/20 09:00 12/16/20 08:33 Insulin Detemir (Levemir Insulin) 10 units BID SC 12/13/20 21:00 12/15/20 09:15 DC 12/15/20 07:59 Insulin Detemir (Levemir Insulin) 15 units BID SC 12/15/20 21:00 12/16/20 08:26 Insulin Human Lispro (HumaLOG INSULIN) SEE PROTOCOL TABLE AC SC 12/14/20 07:30 12/16/20 12:13 Insulin Human Lispro (HumaLOG INSULIN) SEE PROTOCOL TABLE QHS SC 12/13/20 21:00 12/15/20 21:39 Lactobacillus Acidophilus (Bacid) 1 ea WMHS PO 12/14/20 18:00 12/16/20 12:13 Metoprolol Tartrate (Lopressor) 25 mg BID PO 12/16/20 09:00 12/16/20 10:30 Multivitamins (Theragram-M) 1 tab DAILY PO 12/14/20 09:00 12/16/20 08:28 Pantoprazole Sodium (Protonix) 40 mg DAILY PO 12/14/20 09:00 12/16/20 08:27 Potassium Chloride (Micro-K Extencaps) 10 meq BID PO 12/13/20 21:00 12/16/20 08:28 Senna (Senokot) 1 tab QHS PO 12/13/20 21:00 12/15/20 21:39 Simvastatin (Zocor) 40 mg QHS PO 12/13/20 21:00 12/15/20 21:40 Sitagliptin Phosphate (Januvia) 50 mg DAILY PO 12/14/20 09:00 12/16/20 08:28 RAZA RAMOS MD Dec 16, 2020 12:39
[2020-12-16 14:00] VITALS: BP 164/71
[2020-12-16 20:00] VITALS: BP 173/78
[2020-12-16] MEDS: SENNA 8.6 MG TAB (SENOKOT) PO SCH (21:00)
[2020-12-16] MEDS: SIMVASTATIN 40 MG TAB PO SCH (21:33)
[2020-12-17 06:00] VITALS: BP 155/87
[2020-12-17 09:21] VITALS: BP 130/65
[2020-12-17] MEDS: APIXABAN 5 MG TAB (ELIQUIS) PO SCH ×2 (09:23→20:15)
[2020-12-17] MEDS: MULTIVITAMINS/MINERALS THERAP 1 TAB PO SCH (09:23)
[2020-12-17] MEDS: PANTOPRAZOLE 40MG TAB (PROTONIX) PO SCH (09:23)
[2020-12-17] MEDS: FUROSEMIDE 40 MG TAB PO SCH ×2 (09:23→16:55)
[2020-12-17] MEDS: HumaLOG INSULIN (NovoLOG) PER UNIT SC SCH ×4 (09:23→20:16)
[2020-12-17] MEDS: LEVEMIR (INSULIN DETEMIR) 1 UNITS/0.01ML SC SCH ×2 (09:23→20:16)
[2020-12-17] MEDS: DOCUSATE SODIUM 100MG CAPSULE PO SCH ×2 (09:24→20:16)
[2020-12-17] MEDS: METOPROLOL TART 25 MG TABLET PO SCH ×2 (09:24→20:15)
[2020-12-17] MEDS: **hydrALAZINE HCL** 25 MG TAB PO SCH ×3 (09:24→20:15)
[2020-12-17] MEDS: LACTOBACILLUS ACIDOPHILUS CAP (BACID) PO SCH ×4 (09:24→20:15)
[2020-12-17] MEDS: SITagliptin 50 MG TAB (JANUVIA) PO SCH (09:24)
[2020-12-17] MEDS: POTASSIUM CHLORIDE 10MEQ SR TABLET PO SCH ×2 (09:24→20:15)
[2020-12-17 14:00] VITALS: BP 138/65
[2020-12-17 20:00] VITALS: BP 145/66
[2020-12-17] MEDS: SIMVASTATIN 40 MG TAB PO SCH (20:15)
[2020-12-17] MEDS: SENNA 8.6 MG TAB (SENOKOT) PO SCH (20:16)
[2020-12-18 06:00] VITALS: BP 127/68
[2020-12-18] MEDS: HumaLOG INSULIN (NovoLOG) PER UNIT SC SCH ×4 (07:10→20:25)
[2020-12-18] MEDS: LEVEMIR (INSULIN DETEMIR) 1 UNITS/0.01ML SC SCH ×2 (07:37→20:25)
[2020-12-18] MEDS: LACTOBACILLUS ACIDOPHILUS CAP (BACID) PO SCH ×4 (07:45→20:24)
[2020-12-18] MEDS: **hydrALAZINE HCL** 25 MG TAB PO SCH ×3 (07:46→20:23)
[2020-12-18] MEDS: DOCUSATE SODIUM 100MG CAPSULE PO SCH ×2 (07:46→20:24)
[2020-12-18] MEDS: MULTIVITAMINS/MINERALS THERAP 1 TAB PO SCH (07:46)
[2020-12-18] MEDS: SITagliptin 50 MG TAB (JANUVIA) PO SCH (07:46)
[2020-12-18] MEDS: POTASSIUM CHLORIDE 10MEQ SR TABLET PO SCH ×2 (07:46→20:24)
[2020-12-18] MEDS: FUROSEMIDE 40 MG TAB PO SCH ×2 (07:46→17:21)
[2020-12-18] MEDS: PANTOPRAZOLE 40MG TAB (PROTONIX) PO SCH (07:46)
[2020-12-18] MEDS: METOPROLOL TART 25 MG TABLET PO SCH ×2 (07:47→20:24)
[2020-12-18] MEDS: APIXABAN 5 MG TAB (ELIQUIS) PO SCH ×2 (07:47→20:24)
[2020-12-18 14:00] VITALS: BP 145/83
[2020-12-18] MEDS: SENNA 8.6 MG TAB (SENOKOT) PO SCH (20:24)
[2020-12-18] MEDS: SIMVASTATIN 40 MG TAB PO SCH (20:24)
[2020-12-18 21:40] VITALS: BP 127/59
[2020-12-19 06:02] VITALS: BP 140/76
[2020-12-19 07:02] LABS: HEMATOCRIT 36.8 % (36.0-47.0); HEMOGLOBIN 11.9 g/dl (12.0-15.5); MEAN CORPUSCULAR HEMOGLOBIN 33.6 pg (27.0-33.0); MEAN CORPUSCULAR HGB CONC 32.3 g/dl (32.0-36.5); PLATELET COUNT, AUTOMATED 238 10^3/uL (150-450); RED BLOOD COUNT 3.54 10^6/uL (4.00-5.40); WHITE BLOOD COUNT 10.1 10^3/uL (4.0-10.0)
[2020-12-19 07:27] LABS: BLOOD UREA NITROGEN 22 MG/DL (7-18); CARBON DIOXIDE LEVEL 31 MEQ/L (21-32); CHLORIDE LEVEL 104 MEQ/L (98-107); CREATININE FOR GFR 0.94 MG/DL (0.55-1.30); GLOMERULAR FILTRATION RATE > 60.0 (>32); GLUCOSE, FASTING 185 MG/DL (70-100); POTASSIUM SERUM 3.4 MEQ/L (3.5-5.1); SODIUM LEVEL 141 MEQ/L (136-145)
[2020-12-19 07:28] LABS: CALCIUM LEVEL 9.1 MG/DL (8.8-10.2)
[2020-12-19] MEDS: LEVEMIR (INSULIN DETEMIR) 1 UNITS/0.01ML SC SCH ×2 (07:46→21:39)
[2020-12-19] MEDS: SITagliptin 50 MG TAB (JANUVIA) PO SCH (07:46)
[2020-12-19] MEDS: HumaLOG INSULIN (NovoLOG) PER UNIT SC SCH ×4 (07:46→21:39)
[2020-12-19] MEDS: MULTIVITAMINS/MINERALS THERAP 1 TAB PO SCH (07:46)
[2020-12-19] MEDS: POTASSIUM CHLORIDE 10MEQ SR TABLET PO SCH ×2 (07:47→21:36)
[2020-12-19] MEDS: PANTOPRAZOLE 40MG TAB (PROTONIX) PO SCH (07:47)
[2020-12-19] MEDS: APIXABAN 5 MG TAB (ELIQUIS) PO SCH ×2 (07:47→21:36)
[2020-12-19] MEDS: DOCUSATE SODIUM 100MG CAPSULE PO SCH ×2 (07:48→21:35)
[2020-12-19] MEDS: METOPROLOL TART 25 MG TABLET PO SCH ×2 (07:48→21:37)
[2020-12-19] MEDS: LACTOBACILLUS ACIDOPHILUS CAP (BACID) PO SCH ×4 (07:48→21:36)
[2020-12-19] MEDS: FUROSEMIDE 40 MG TAB PO SCH ×2 (07:49→16:38)
[2020-12-19] MEDS: **hydrALAZINE HCL** 25 MG TAB PO SCH ×3 (07:49→21:00)
[2020-12-19 08:07] LABS: ATYPICAL LYMPH 2 % (0-5); EOSINOPHILS 1 % (0-3); LYMPHOCYTES 29 % (16-44); METAMYELOCYTES 7 % (0-0); MONOCYTES 3 % (0-5); MYELOCYTES 6 % (0-0); NEUTROPHILS 47 % (28-66)
[2020-12-19 08:08] LABS: ANISOCYTOSIS 1+; PLATELET ESTIMATE NORMAL (NORMAL)
[2020-12-19] MEDS ORDERED: POTASSIUM CHLORIDE 10MEQ SR TABLET PO ONE (08:55)
--- NOTE | 2020-12-19 08:56 | IPNPDOC ---
PM&R Progress Note DATE OF SERVICE: Dec 19, 2020 Booth Manager Progress Note Subjective: PAtient seen in her room stating she is feeling well, denies fevers, or chills and believes her legs feel less swollen. REVIEW OF SYSTEMS: The following is a completed review of systems and has been reviewed. Review of systems otherwise unremarkable. PAIN: Patient self reports no pain EYES: No recent vision changes EARS, NOSE, & THROAT: No throat pain, or dysphagia, or rhinorrhea CARDIOVASCULAR: Denies chest pain or palpitations PULMONARY: Denies shortness of breath GASTROINTESTINAL: Denies constipation/diarrhea GENITOURINARY: denies dysuria MUSCULOSKELETAL: generalized weakness NEUROLOGICAL:+encephalopathic (improved), +peripheral polyneuropathy HEMATOLOGICAL: +easy bruising SKIN: ecchymotic PSYCHIATRIC: unremarkable All other review of systems found to be negative. PHYSICAL EXAMINATION: VITAL SIGNS: Please see below. GENERAL: Pleasant and cooperative. No acute distress. Rodriguez facies HEENT: PERRL. Extraocular movements intact. Clear conjunctiva CARDIOVASCULAR: Regular rate and rhythm. No murmurs, rubs, or gallops LUNGS: Clear to auscultation bilaterally. No wheezes. No rhonchi ABDOMEN: distended, firm, non-tender, no guarding, Normal active bowel sounds NEUROLOGICAL: Alert and oriented x3 Cranial nerves II through XII grossly i ntact. Sensation decreased to light touch in stocking pattern EXTREMITIES: 4+\5 strength bilateral upper extremities. 4\5 strength right lower extremity. 4/5 strength in left lower extremity. +pitting edema bilat LE (improving) SKIN: scattered ecchymosis, ASSESSMENT:85-year-old F with past medical history of metastatic breast cancer who presents status post weakness due to sepsis and metabolic encephalopathy PLAN: 1. Rehab-PT/OT advance mobility and ADLs, strengthen/stretch/maintain ROM all 4 limbs, ambulating with RW 2. Neuro- s/p recent metabolic encephalopathy due to hyponatremia and sepsis, continue to manage electrolytes and infection, patient able to follow commands and is oriented today x3 3. Cardiac- hx of Afib on eliquis -HTN with elevated blood pressures that have improved adjusting hydralazine to 30mg TID scheduled with holding parameters -HLD cont statin -diastolic CHF- daily weights, fluid restrict, lasix (increased to 40mg BID) -medicine consulted to assist in overall management 4. Resp- monitor for infection -hx of PE on eliquis 5. 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 GI ppx- protonix 7. DVT ppx- on eliquis 8. Endo- DM on decadron with hyperglycemia cont levemir (increasing daytime dose to 25unit, cont 18units qhs) and ISS, on Januvia (increasing to 75mg daily) 9. PAin- tylenol and oxycodone 10. ID- s/p course of Cefdinir for possible UTI and +blood culture, bacid added, patient with persistent low grade leukocytosis likely due to decadron 11. Hypokalemia- K is 3.4 today will give 40meq and repeat bmp tomorrow 12. Dispo- TBD Allergies Coded Allergies: No Known Drug Allergies (Verified Allergy, Unknown, 12/09/20) Vital Signs Vital Signs Date Time Temp Pulse Resp B/P (MAP) Pulse Ox O2 Delivery O2 Flow Rate FiO2 12/19/20 07:48 70 141/81 12/19/20 06:02 97.1 18 93 Room Air Laboratory Data CBC/BMP Laboratory Tests 12/19/20 06:28 Labs 24H Laboratory Tests 2 12/18/20 11:27: Bedside Glucose (Misc Panel) 184H 12/18/20 16:37: Bedside Glucose (Misc Panel) 397H 12/18/20 19:12: Bedside Glucose (Misc Panel) 417H 12/19/20 05:21: Bedside Glucose (Misc Panel) 234H 12/19/20 06:28: Immature Granulocyte % (Auto) , Neutrophils (%) (Auto) , Nucleated Red Blood Cells % (auto) 0.7H, Neutrophils 47, Band Neutrophils 5, Lymphocytes (Manual) 29, Monocytes (Manual) 3, Eosinophils (Manual) 1, Metamyelocytes 7H, Myelocytes 6H, Atypical Lymphocytes 2, Anisocytosis 1+, Macrocytosis 1+, Platelet Estimate NORMAL, Anion Gap 6L, Glomerular Filtration Rate > 60.0, Calcium Level 9.1 Current Medications Current Medications Current Medications Medications (Trade) Dose Ordered Sig/Marley Route PRN Reason Start Time Stop Time Status Last Admin Dose Admin Acetaminophen (Tylenol Tab) 650 mg Q4HP PRN PO MILD PAIN (PS 1-4) 12/13/20 16:45 Apixaban (Eliquis) 5 mg BID PO 12/13/20 21:00 12/19/20 07:47 Cefdinir (Omnicef) 300 mg BID PO 12/14/20 15:30 12/14/20 15:53 DC 12/14/20 15:39 Cefdinir (Omnicef) 300 mg BID PO 12/14/20 23:00 12/16/20 21:01 DC 12/16/20 21:33 Dexamethasone (Decadron) 2 mg DAILY PO 12/14/20 09:00 12/19/20 07:47 Dextrose (Dextrose 50%) 25 ml ASDIRECTED PRN IV SEE LABEL COMMENTS 12/13/20 16:45 Docusate Sodium (Colace) 100 mg BID PO 12/13/20 21:00 12/18/20 20:24 Furosemide (Lasix) 40 mg BID@09,17 PO 12/14/20 17:00 12/19/20 07:49 Furosemide (Lasix) 40 mg DAILY PO 12/14/20 09:00 12/14/20 15:55 DC 12/14/20 09:20 Glucagon (Glucagon) 1 mg ASDIRECTED PRN SC SEE LABEL COMMENTS 12/13/20 16:45 Glucose (Glucose) 16 GM ASDIRECTED PRN PO SEE LABEL COMMENTS 12/13/20 16:45 Hydralazine HCl (Apresoline) 10 mg Q12HP PRN PO sbp >180 or DBP >100 12/13/20 21:00 12/15/20 09:16 DC Hydralazine HCl (Apresoline) 25 mg TID PO 12/15/20 09:00 12/19/20 07:49 Insulin Detemir (Levemir Insulin) 10 units BID SC 12/13/20 21:00 12/15/20 09:15 DC 12/15/20 07:59 Insulin Detemir (Levemir Insulin) 15 units BID SC 12/15/20 21:00 12/16/20 12:39 DC 12/16/20 08:26 Insulin Detemir (Levemir Insulin) 18 units BID SC 12/16/20 21:00 12/19/20 08:53 DC 12/19/20 07:46 Insulin Detemir (Levemir Insulin) 18 units QHS SC 12/19/20 21:00 UNV Insulin Detemir (Levemir Insulin) 25 units DAILY SC 12/19/20 09:00 UNV Insulin Human Lispro (HumaLOG INSULIN) SEE PROTOCOL TABLE AC SC 12/14/20 07:30 12/19/20 07:46 Insulin Human Lispro (HumaLOG INSULIN) SEE PROTOCOL TABLE QHS SC 12/13/20 21:00 12/18/20 20:25 Lactobacillus Acidophilus (Bacid) 1 ea WMHS PO 12/14/20 18:00 12/19/20 07:48 Metoprolol Tartrate (Lopressor) 25 mg BID PO 12/16/20 09:00 12/19/20 07:48 Multivitamins (Theragram-M) 1 tab DAILY PO 12/14/20 09:00 12/19/20 07:46 Pantoprazole Sodium (Protonix) 40 mg DAILY PO 12/14/20 09:00 12/19/20 07:47 Potassium Chloride (Micro-K Extencaps) 10 meq BID PO 12/13/20 21:00 12/19/20 07:47 Senna (Senokot) 1 tab QHS PO 12/13/20 21:00 12/18/20 20:24 Simvastatin (Zocor) 40 mg QHS PO 12/13/20 21:00 12/18/20 20:24 Sitagliptin Phosphate (Januvia) 50 mg DAILY PO 12/14/20 09:00 12/19/20 07:46 RAZA RAMOS MD Dec 19, 2020 08:56
[2020-12-19] MEDS ORDERED: PILL CUTTER 1 EACH XX PRN (11:55)
[2020-12-19] MEDS: ACETAMINOPHEN TAB 650MG DOSE (2X325MG) PO PRN (13:31)
[2020-12-19 14:00] VITALS: BP 140/79
[2020-12-19 20:00] VITALS: BP 145/74
[2020-12-19] MEDS: SENNA 8.6 MG TAB (SENOKOT) PO SCH (21:36)
[2020-12-19] MEDS: SIMVASTATIN 40 MG TAB PO SCH (21:38)
[2020-12-20 06:00] VITALS: BP 145/70
[2020-12-20] MEDS ORDERED: HOME MED LIST COMPLETE! XX SCH (07:30)
[2020-12-20 07:34] LABS: BLOOD UREA NITROGEN 26 MG/DL (7-18); CALCIUM LEVEL 9.4 MG/DL (8.8-10.2); CARBON DIOXIDE LEVEL 33 MEQ/L (21-32); CHLORIDE LEVEL 103 MEQ/L (98-107); CREATININE FOR GFR 0.88 MG/DL (0.55-1.30); GLOMERULAR FILTRATION RATE > 60.0 (>32); GLUCOSE, FASTING 151 MG/DL (70-100); POTASSIUM SERUM 3.8 MEQ/L (3.5-5.1); SODIUM LEVEL 142 MEQ/L (136-145)
[2020-12-20] MEDS: LEVEMIR (INSULIN DETEMIR) 1 UNITS/0.01ML SC SCH ×2 (08:20→22:13)
[2020-12-20] MEDS: HumaLOG INSULIN (NovoLOG) PER UNIT SC SCH ×4 (08:20→22:12)
[2020-12-20] MEDS: APIXABAN 5 MG TAB (ELIQUIS) PO SCH ×2 (08:21→22:15)
[2020-12-20] MEDS: POTASSIUM CHLORIDE 10MEQ SR TABLET PO SCH ×2 (08:21→22:15)
[2020-12-20] MEDS: MULTIVITAMINS/MINERALS THERAP 1 TAB PO SCH (08:21)
[2020-12-20] MEDS: PANTOPRAZOLE 40MG TAB (PROTONIX) PO SCH (08:21)
[2020-12-20] MEDS: LACTOBACILLUS ACIDOPHILUS CAP (BACID) PO SCH ×4 (08:21→22:15)
[2020-12-20] MEDS: DOCUSATE SODIUM 100MG CAPSULE PO SCH ×2 (08:21→22:13)
[2020-12-20] MEDS: METOPROLOL TART 25 MG TABLET PO SCH ×2 (08:22→22:15)
[2020-12-20] MEDS: FUROSEMIDE 40 MG TAB PO SCH ×2 (08:22→17:40)
[2020-12-20] MEDS: **hydrALAZINE HCL** 25 MG TAB PO SCH ×3 (08:23→21:00)
--- NOTE | 2020-12-20 08:51 | IPNPDOC ---
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 REVIEW OF SYSTEMS: The following is a completed review of systems and has been reviewed. Review of systems otherwise unremarkable. PAIN: Patient self reports no pain EYES: No recent vision changes EARS, NOSE, & THROAT: No throat pain, or dysphagia, or rhinorrhea CARDIOVASCULAR: Denies chest pain or palpitations PULMONARY: Denies shortness of breath GASTROINTESTINAL: Denies constipation/diarrhea GENITOURINARY: denies dysuria MUSCULOSKELETAL: generalized weakness NEUROLOGICAL:+encephalopathic (improved), +peripheral polyneuropathy HEMATOLOGICAL: +easy bruising SKIN: ecchymotic PSYCHIATRIC: unremarkable All other review of systems found to be negative. PHYSICAL EXAMINATION: VITAL SIGNS: Please see below. GENERAL: Pleasant and cooperative. No acute distress. Rodriguez facies HEENT: PERRL. Extraocular movements intact. Clear conjunctiva CARDIOVASCULAR: Regular rate and rhythm. No murmurs, rubs, or gallops LUNGS: Clear to auscultation bilaterally. No wheezes. No rhonchi ABDOMEN: distended, firm, non-tender, no guarding, Normal active bowel sounds NEUROLOGICAL: Alert and oriented x3 Cranial nerves II through XII grossly intact. Sensation decreased to light touch in stocking pattern EXTREMITIES: 4+\5 strength bilateral upper extremities. 4\5 strength right lower extremity. 4/5 strength in left lower extremity. +pitting edema bilat LE (improving) SKIN: scattered ecchymosis, ASSESSMENT:85-year-old F with past medical history of metastatic breast cancer who presents status post weakness due to sepsis and metabolic encephalopathy PLAN: 1. Rehab-PT/OT advance mobility and ADLs, strengthen/stretch/maintain ROM all 4 limbs, ambulating with RW 2. Neuro- s/p recent metabolic encephalopathy due to hyponatremia and sepsis, continue to manage electrolytes and infection, patient able to follow commands and is oriented today x3 3. Cardiac- hx of Afib on eliquis -HTN with elevated blood pressures that have improved adjusting hydralazine to 25mg TID scheduled with holding parameters -HLD cont statin -diastolic CHF- daily weights, fluid restrict, lasix (increased to 40mg BID), edema improving, however still persists will consult renal -medicine consulted to assist in overall management 4. Resp- monitor for infection -hx of PE on eliquis 5. 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 GI ppx- protonix 7. DVT ppx- on eliquis 8. Endo- DM on decadron with hyperglycemia cont levemir (increased daytime dose to 25unit, cont 18units qhs) and ISS, on Januvia (increasing to 100mg daily) 9. PAin- tylenol and oxycodone 10. ID- s/p course of Cefdinir for possible UTI and +blood culture, bacid added, patient with persistent low grade leukocytosis likely due to decadron 11. Hypokalemia- resolved, cont to monitor 12. Dispo- TBD Allergies Coded Allergies: No Known Drug Allergies (Verified Allergy, Unknown, 12/09/20) Vital Signs Vital Signs Date Time Temp Pulse Resp B/P (MAP) Pulse Ox O2 Delivery O2 Flow Rate FiO2 12/20/20 08:22 72 139/72 12/20/20 06:00 97.1 19 96 Room Air Laboratory Data CBC/BMP Laboratory Tests 12/20/20 06:20 Labs 24H Laboratory Tests 2 12/19/20 11:16: Bedside Glucose (Misc Panel) 271H 12/19/20 16:15: Bedside Glucose (Misc Panel) 282H 12/19/20 19:45: Bedside Glucose (Misc Panel) 374H 12/20/20 06:20: Anion Gap 6L, Glomerular Filtration Rate > 60.0, Calcium Level 9.4 Current Medications Current Medications Current Medications Medications (Trade) Dose Ordered Sig/Marley Route PRN Reason Start Time Stop Time Status Last Admin Dose Admin Acetaminophen (Tylenol Tab) 650 mg Q4HP PRN PO MILD PAIN (PS 1-4) 12/13/20 16:45 12/19/20 13:31 Apixaban (Eliquis) 5 mg BID PO 12/13/20 21:00 12/20/20 08:21 Cefdinir (Omnicef) 300 mg BID PO 12/14/20 15:30 12/14/20 15:53 DC 12/14/20 15:39 Cefdinir (Omnicef) 300 mg BID PO 12/14/20 23:00 12/16/20 21:01 DC 12/16/20 21:33 Dexamethasone (Decadron) 2 mg DAILY PO 12/14/20 09:00 12/20/20 08:21 Dextrose (Dextrose 50%) 25 ml ASDIRECTED PRN IV SEE LABEL COMMENTS 12/13/20 16:45 Docusate Sodium (Colace) 100 mg BID PO 12/13/20 21:00 12/20/20 08:21 Furosemide (Lasix) 40 mg BID@09,17 PO 12/14/20 17:00 12/20/20 08:22 Furosemide (Lasix) 40 mg DAILY PO 12/14/20 09:00 12/14/20 15:55 DC 12/14/20 09:20 Glucagon (Glucagon) 1 mg ASDIRECTED PRN SC SEE LABEL COMMENTS 12/13/20 16:45 Glucose (Glucose) 16 GM ASDIRECTED PRN PO SEE LABEL COMMENTS 12/13/20 16:45 Home Med (Home Med List Complete!) ASDIRECTED XX 12/20/20 07:30 12/20/20 07:29 DC Hydralazine HCl (Apresoline) 10 mg Q12HP PRN PO sbp >180 or DBP >100 12/13/20 21:00 12/15/20 09:16 DC Hydralazine HCl (Apresoline) 25 mg TID PO 12/15/20 09:00 12/20/20 08:23 Insulin Detemir (Levemir Insulin) 10 units BID SC 12/13/20 21:00 12/15/20 09:15 DC 12/15/20 07:59 Insulin Detemir (Levemir Insulin) 15 units BID SC 12/15/20 21:00 12/16/20 12:39 DC 12/16/20 08:26 Insulin Detemir (Levemir Insulin) 18 units BID SC 12/16/20 21:00 12/19/20 08:53 DC 12/19/20 07:46 Insulin Detemir (Levemir Insulin) 18 units QHS SC 12/19/20 21:00 12/19/20 21:39 Insulin Detemir (Levemir Insulin) 25 units DAILY SC 12/20/20 09:00 12/20/20 08:20 Insulin Human Lispro (HumaLOG INSULIN) SEE PROTOCOL TABLE AC SC 12/14/20 07:30 12/20/20 08:20 Insulin Human Lispro (HumaLOG INSULIN) SEE PROTOCOL TABLE QHS SC 12/13/20 21:00 12/19/20 21:39 Lactobacillus Acidophilus (Bacid) 1 ea WMHS PO 12/14/20 18:00 12/20/20 08:21 Metoprolol Tartrate (Lopressor) 25 mg BID PO 12/16/20 09:00 12/20/20 08:22 Multivitamins (Theragram-M) 1 tab DAILY PO 12/14/20 09:00 12/20/20 08:21 Pantoprazole Sodium (Protonix) 40 mg DAILY PO 12/14/20 09:00 12/20/20 08:21 Potassium Chloride (Micro-K Extencaps) 10 meq BID PO 12/13/20 21:00 12/20/20 08:21 Senna (Senokot) 1 tab QHS PO 12/13/20 21:00 12/19/20 21:36 Simvastatin (Zocor) 40 mg QHS PO 12/13/20 21:00 12/19/20 21:38 Sitagliptin Phosphate (Januvia) 50 mg DAILY PO 12/14/20 09:00 12/19/20 11:44 DC 12/19/20 07:46 Sitagliptin Phosphate (Januvia) 75 mg DAILY PO 12/20/20 09:00 12/20/20 08:21 RAZA RAMOS MD Dec 20, 2020 08:51
[2020-12-20] MEDS ORDERED: SITagliptin 50 MG TAB (JANUVIA) PO SCH (09:00)
[2020-12-20 14:00] VITALS: BP 132/73
--- NOTE | 2020-12-20 18:29 | IPNPDOC ---
Date Seen The patient was seen on 12/20/20. Progress Note SUBJECTIVE: Patient examined overnight. No acute events. States physical therapy was participating physical therapy. PHYSICAL EXAM VITAL SIGNS: please see below General: NAD, comfortable HEENT: PERRLA, EOMI, sclerae clear Neck: supple, normal ROM, no JVD Respiratory: lungs CTAB, no wheeze, no rales, no crackles CVS: RRR, normal S1, S2, no murmurs Abdo: soft, no masses, no hepatosplenomegaly, BS+, no rebound tenderness Extremities: no edema, pulses 2+ MSK: no joint deformities, normal ROM Neuro: no focal neuro deficits, moving all 4 extremities, CN2-12 intact. Strength 5/5 in all 4 extremities. No nystagmus. Psych: calm, cooperative, AAO x 3 Assessment/plan: 85-year-old female with history of stage IV breast cancer presented to hospital with progressive weakness and has now been discharged to the acute rehab unit. 1. Metabolic encephalopathy likely secondary tract infection electrolyte disturbance. Patient has been adequately treated and will continue to monitor. Patient is now on oral cefdinir which will be continued for total of 7 days of therapy. Patient did show staph hominis on blood culture but this is most likely contaminant. Continue to work with physical therapy on the area floor. 2. Lactic acidosis, resolved with IV fluids 3. Hyperkalemia, resolved continue to monitor. 4. Questionable mass metastatic foci found on CT of the skull. 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 Continue to monitor and follow-up outpatient. 5. Uncontrolled type 2 diabetes. Patient was on dexamethasone for cancer. Last A1c was 10.7. Continue Levemir 10 units twice daily and once discharge she can be switched to 20 units of glargine once a day. 6. Ketosis, likely starvation, resolved. Patient is feeling better. 7. Bilateral lower extremity edema. DVT ruled out with ultrasound. Continue to monitor. DWAIN stockings. 8. Hyponatremia, resolved. Continue to monitor. 9. Hypertension. Monitor patient's blood pressure and start antihypertensive therapy as necessary. 9. Dyslipidemia. Continue home simvastatin. 11. History of pulmonary embolism. Continue Eliquis. 12. Weakness. Patient is improving and will continue to work with the ARU staff. DVT Prophylaxis: Anticoagulation with Eliquis Disposition: Discharge per Dr. Winters and the ARU staff VS, I&O, 24H, Fishbone Vital Signs/I&O Vital Signs Date Time Temp Pulse Resp B/P (MAP) Pulse Ox O2 Delivery O2 Flow Rate FiO2 12/20/20 17:40 134/68 12/20/20 14:00 98.8 83 18 94 Room Air I&O- Last 24 Hours up to 6 AM 12/20/20 06:00 Intake Total 1340 ml Output Total 1 ml Balance 1339 ml Laboratory Data 24H LABS Laboratory Tests 2 12/19/20 19:45: Bedside Glucose (Misc Panel) 374H 12/20/20 06:20: Anion Gap 6L, Glomerular Filtration Rate > 60.0, Calcium Level 9.4 12/20/20 11:27: Bedside Glucose (Misc Panel) 328H 12/20/20 16:47: Bedside Glucose (Misc Panel) 293H CBC/BMP Laboratory Tests 12/20/20 06:20 WOLF WATKINS MD Dec 20, 2020 18:29
[2020-12-20 22:00] VITALS: BP 121/67
[2020-12-20] MEDS: SIMVASTATIN 40 MG TAB PO SCH (22:15)
[2020-12-20] MEDS: SENNA 8.6 MG TAB (SENOKOT) PO SCH (22:15)
[2020-12-21 06:00] VITALS: BP 121/66
[2020-12-21] MEDS: **hydrALAZINE HCL** 25 MG TAB PO SCH ×3 (07:22→21:03)
[2020-12-21] MEDS: PANTOPRAZOLE 40MG TAB (PROTONIX) PO SCH (07:29)
[2020-12-21] MEDS: SITagliptin 50 MG TAB (JANUVIA) PO SCH (07:29)
[2020-12-21] MEDS: FUROSEMIDE 40 MG TAB PO SCH ×2 (07:29→17:01)
[2020-12-21] MEDS: APIXABAN 5 MG TAB (ELIQUIS) PO SCH ×2 (07:29→21:02)
[2020-12-21] MEDS: METOPROLOL TART 25 MG TABLET PO SCH ×2 (07:29→21:03)
[2020-12-21] MEDS: MULTIVITAMINS/MINERALS THERAP 1 TAB PO SCH (07:29)
[2020-12-21] MEDS: HumaLOG INSULIN (NovoLOG) PER UNIT SC SCH ×4 (07:30→21:10)
[2020-12-21] MEDS: LEVEMIR (INSULIN DETEMIR) 1 UNITS/0.01ML SC SCH ×2 (07:30→21:05)
[2020-12-21] MEDS: LACTOBACILLUS ACIDOPHILUS CAP (BACID) PO SCH ×4 (07:30→21:02)
[2020-12-21] MEDS: POTASSIUM CHLORIDE 10MEQ SR TABLET PO SCH ×2 (07:30→21:03)
[2020-12-21] MEDS: DOCUSATE SODIUM 100MG CAPSULE PO SCH ×2 (07:31→21:00)
[2020-12-21 08:02] LABS: HEMATOCRIT 36.7 % (36.0-47.0); HEMOGLOBIN 11.9 g/dl (12.0-15.5); MEAN CORPUSCULAR HEMOGLOBIN 34.1 pg (27.0-33.0); MEAN CORPUSCULAR HGB CONC 32.4 g/dl (32.0-36.5); MEAN CORPUSCULAR VOLUME 105.2 fl (80.0-96.0); PLATELET COUNT, AUTOMATED 233 10^3/uL (150-450); RED BLOOD COUNT 3.49 10^6/uL (4.00-5.40); WHITE BLOOD COUNT 11.4 10^3/uL (4.0-10.0)
[2020-12-21 08:07] LABS: BLOOD UREA NITROGEN 24 MG/DL (7-18); CALCIUM LEVEL 9.6 MG/DL (8.8-10.2); CARBON DIOXIDE LEVEL 28 MEQ/L (21-32); CHLORIDE LEVEL 105 MEQ/L (98-107); CREATININE FOR GFR 0.78 MG/DL (0.55-1.30); GLOMERULAR FILTRATION RATE > 60.0 (>32); GLUCOSE, FASTING 123 MG/DL (70-100); POTASSIUM SERUM 3.7 MEQ/L (3.5-5.1); SODIUM LEVEL 141 MEQ/L (136-145)
[2020-12-21 08:46] LABS: ATYPICAL LYMPH 2 % (0-5); BASOPHILS 1 % (0-1); EOSINOPHILS 1 % (0-3); LYMPHOCYTES 25 % (16-44); METAMYELOCYTES 5 % (0-0); MONOCYTES 4 % (0-5); MYELOCYTES 6 % (0-0); NEUTROPHILS 52 % (28-66); PLATELET ESTIMATE NORMAL (NORMAL)
[2020-12-21 08:47] LABS: ANISOCYTOSIS 2+
[2020-12-21 08:48] LABS: MICROCYTOSIS 1+
--- NOTE | 2020-12-21 09:06 | IPNPDOC ---
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 REVIEW OF SYSTEMS: The following is a completed review of systems and has been reviewed. Review of systems otherwise unremarkable. PAIN: Patient self reports no pain EYES: No recent vision changes EARS, NOSE, & THROAT: No throat pain, or dysphagia, or rhinorrhea CARDIOVASCULAR: Denies chest pain or palpitations PULMONARY: + shortness of breath on exertion GASTROINTESTINAL: Denies constipation/diarrhea GENITOURINARY: denies dysuria MUSCULOSKELETAL: generalized weakness NEUROLOGICAL:+encephalopathic (improved), +peripheral polyneuropathy HEMATOLOGICAL: +easy bruising SKIN: ecchymotic PSYCHIATRIC: unremarkable All other review of systems found to be negative. PHYSICAL EXAMINATION: VITAL SIGNS: Please see below. GENERAL: Pleasant and cooperative. No acute distress. Rodriguez facies HEENT: PERRL. Extraocular movements intact. Clear conjunctiva CARDIOVASCULAR: Regular rate and rhythm. No murmurs, rubs, or gallops LUNGS: Clear to auscultation bilaterally. No wheezes. No rhonchi ABDOMEN: distended, firm, non-tender, no guarding, Normal active bowel sounds NEUROLOGICAL: Alert and oriented x3 Cranial nerves II through XII grossly i ntact. Sensation decreased to light touch in stocking pattern EXTREMITIES: 4+\5 strength bilateral upper extremities. 4\5 strength right lower extremity. 4/5 strength in left lower extremity. +pitting edema bilat LE (improving) SKIN: scattered ecchymosis, ASSESSMENT:85-year-old F with past medical history of metastatic breast cancer who presents status post weakness due to sepsis and metabolic encephalopathy PLAN: 1. Rehab-PT/OT advance mobility and ADLs, strengthen/stretch/maintain ROM all 4 limbs, ambulating with RW 2. Neuro- s/p recent metabolic encephalopathy due to hyponatremia and sepsis, continue to manage electrolytes and infection, patient able to follow commands and is oriented today x3 3. Cardiac- hx of Afib on eliquis -HTN with elevated blood pressures that have improved adjusting hydralazine to 25mg TID scheduled with holding parameters -HLD cont statin -diastolic CHF- daily weights, fluid restrict, lasix (increased to 40mg BID), edema improving, however still persists will consult renal -medicine consulted to assist in overall management 4. Resp- monitor for infection -hx of PE on eliquis 5. 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 GI ppx- protonix 7. DVT ppx- on eliquis 8. Endo- DM on decadron with hyperglycemia cont levemir (increased daytime dose to 25unit, cont 18units qhs) and ISS, on Januvia (increasing to 100mg daily) 9. PAin- tylenol and oxycodone 10. ID- s/p course of Cefdinir for possible UTI and +blood culture, bacid added, patient with persistent low grade leukocytosis likely due to decadron 11. Hypokalemia- resolved, cont to monitor 12. Dispo- TBD Allergies Coded Allergies: No Known Drug Allergies (Verified Allergy, Unknown, 12/09/20) Vital Signs Vital Signs Date Time Temp Pulse Resp B/P (MAP) Pulse Ox O2 Delivery O2 Flow Rate FiO2 12/21/20 07:29 76 121/66 12/21/20 06:00 97.0 18 96 Room Air Laboratory Data CBC/BMP Laboratory Tests 12/21/20 06:27 Labs 24H Laboratory Tests 2 12/20/20 11:27: Bedside Glucose (Misc Panel) 328H 12/20/20 16:47: Bedside Glucose (Misc Panel) 293H 12/20/20 20:15: Bedside Glucose (Misc Panel) 324H 12/21/20 05:00: Bedside Glucose (Misc Panel) 159H 12/21/20 06:27: Immature Granulocyte % (Auto) , Neutrophils (%) (Auto) , Nucleated Red Blood Cells % (auto) 0.9H, Neutrophils 52, Band Neutrophils 4, Lymphocytes (Manual) 25, Monocytes (Manual) 4, Eosinophils (Manual) 1, Basophils (Manual) 1, Metamyelocytes 5H, Myelocytes 6H, Atypical Lymphocytes 2, Anisocytosis 2+, Microcytosis 1+, Macrocytosis 1+, Platelet Estimate NORMAL, Anion Gap 8, Glomerular Filtration Rate > 60.0, Calcium Level 9.6 Current Medications Current Medications Current Medications Medications (Trade) Dose Ordered Sig/Marley Route PRN Reason Start Time Stop Time Status Last Admin Dose Admin Acetaminophen (Tylenol Tab) 650 mg Q4HP PRN PO MILD PAIN (PS 1-4) 12/13/20 16:45 12/19/20 13:31 Apixaban (Eliquis) 5 mg BID PO 12/13/20 21:00 12/21/20 07:29 Cefdinir (Omnicef) 300 mg BID PO 12/14/20 15:30 12/14/20 15:53 DC 12/14/20 15:39 Cefdinir (Omnicef) 300 mg BID PO 12/14/20 23:00 12/16/20 21:01 DC 12/16/20 21:33 Dexamethasone (Decadron) 2 mg DAILY PO 12/14/20 09:00 12/21/20 07:30 Dextrose (Dextrose 50%) 25 ml ASDIRECTED PRN IV SEE LABEL COMMENTS 12/13/20 16:45 Docusate Sodium (Colace) 100 mg BID PO 12/13/20 21:00 12/20/20 22:13 Furosemide (Lasix) 40 mg BID@09,17 PO 12/14/20 17:00 12/21/20 07:29 Furosemide (Lasix) 40 mg DAILY PO 12/14/20 09:00 12/14/20 15:55 DC 12/14/20 09:20 Glucagon (Glucagon) 1 mg ASDIRECTED PRN SC SEE LABEL COMMENTS 12/13/20 16:45 Glucose (Glucose) 16 GM ASDIRECTED PRN PO SEE LABEL COMMENTS 12/13/20 16:45 Home Med (Home Med List Complete!) ASDIRECTED XX 12/20/20 07:30 12/20/20 07:29 DC Hydralazine HCl (Apresoline) 10 mg Q12HP PRN PO sbp >180 or DBP >100 12/13/20 21:00 12/15/20 09:16 DC Hydralazine HCl (Apresoline) 25 mg TID PO 12/15/20 09:00 12/20/20 17:40 Insulin Detemir (Levemir Insulin) 10 units BID SC 12/13/20 21:00 12/15/20 09:15 DC 12/15/20 07:59 Insulin Detemir (Levemir Insulin) 15 units BID SC 12/15/20 21:00 12/16/20 12:39 DC 12/16/20 08:26 Insulin Detemir (Levemir Insulin) 18 units BID SC 12/16/20 21:00 12/19/20 08:53 DC 12/19/20 07:46 Insulin Detemir (Levemir Insulin) 18 units QHS SC 12/19/20 21:00 12/20/20 22:13 Insulin Detemir (Levemir Insulin) 25 units DAILY SC 12/20/20 09:00 12/21/20 07:30 Insulin Human Lispro (HumaLOG INSULIN) SEE PROTOCOL TABLE AC SC 12/14/20 07:30 12/21/20 07:30 Insulin Human Lispro (HumaLOG INSULIN) SEE PROTOCOL TABLE QHS NE 12/13/20 21:00 12/20/20 22:12 Lactobacillus Acidophilus (Bacid) 1 ea WMHS PO 12/14/20 18:00 12/21/20 07:30 Metoprolol Tartrate (Lopressor) 25 mg BID PO 12/16/20 09:00 12/21/20 07:29 Multivitamins (Theragram-M) 1 tab DAILY PO 12/14/20 09:00 12/21/20 07:29 Pantoprazole Sodium (Protonix) 40 mg DAILY PO 12/14/20 09:00 12/21/20 07:29 Potassium Chloride (Micro-K Extencaps) 10 meq BID PO 12/13/20 21:00 12/21/20 07:30 Senna (Senokot) 1 tab QHS PO 12/13/20 21:00 12/20/20 22:15 Simvastatin (Zocor) 40 mg QHS PO 12/13/20 21:00 12/20/20 22:15 Sitagliptin Phosphate (Januvia) 50 mg DAILY PO 12/14/20 09:00 12/19/20 11:44 DC 12/19/20 07:46 Sitagliptin Phosphate (Januvia) 75 mg DAILY PO 12/20/20 09:00 12/20/20 16:04 DC 12/20/20 08:21 Sitagliptin Phosphate (Januvia) 100 mg DAILY PO 12/21/20 09:00 12/21/20 07:29 RAZA RAMOS MD Dec 21, 2020 09:06
[2020-12-21 14:00] VITALS: BP 130/60
[2020-12-21 20:00] VITALS: BP 142/69
[2020-12-21] MEDS: SENNA 8.6 MG TAB (SENOKOT) PO SCH (21:00)
[2020-12-21] MEDS: SIMVASTATIN 40 MG TAB PO SCH (21:03)
--- NOTE | 2020-12-21 21:50 | CR ---
CONSULTATION DATE: 12/21/2020 CONSULTATION REQUESTED BY: Dr. Nithya Cuenca REASON FOR CONSULTATION: To assist in the management of congestive heart failure and chronic kidney disease. HISTORY OF PRESENT ILLNESS: Mrs. Bhagat is an 85-year-old female with multiple chronic medical problems. She was admitted to [facility] initially on December 10 due to altered mentation. She has a known history of hypertension, diabetes, pulmonary hypertension with pulmonary embolism, and history of dyslipidemia. She has generalized weakness and deconditioning, due to which now she is admitted to acute rehabilitation floor. Nephrology consultation was requested for management of her diuretics and chronic kidney disease. MEDICAL HISTORY: Significant for: 1. Type 2 diabetes. 2. Hypertension. 3. History of pulmonary embolism. 4. Dyslipidemia. 5. History of breast cancer in the past. HOME MEDICATIONS: - Eliquis 5 mg twice a day - dexamethasone 2 mg daily - furosemide 40 mg daily - glipizide 5 mg daily - potassium chloride 10 mEq daily - simvastatin 40 mEq daily - Januvia 50 mg daily ALLERGIES: She has no known drug allergies. PERSONAL AND SOCIAL HISTORY: There is no history of smoking, alcohol, or drug use. FAMILY HISTORY: Noncontributory. REVIEW OF SYSTEMS: Patient feels very weak and unable to walk. She denies any fever or chills. Ears, nose, and throat are unremarkable. Cardiovascular system is significant for history of hypertension and possible diastolic congestive heart failure. She denies any dyspnea or chest pain at present. Respiratory system is negative for cough or hemoptysis. Gastrointestinal (GI) system is negative for vomiting or diarrhea. Genitourinary () system is negative for dysuria or hematuria. Endocrine system is significant for type 2 diabetes. Hematological system is negative for any easy bruising or excessive bleeding. She does have prior history of pulmonary embolism and has been on Eliquis. Neurological system is significant for altered mentation on admission and possible cognitive dysfunction. Skin is negative for rash or ulcers. Other systems are reviewed and are unremarkable. PHYSICAL EXAMINATION: Temperature 97 degrees Fahrenheit, heart rate 76 per minute, respiratory rate 18 per minute, blood pressure 120/66 mmHg, and oxygen saturation 96% on room air. Head is atraumatic. Neck supple and without jugular venous distention (JVD) or thyroid enlargement. Oral mucosa is moist and without any thrush or ulcers. Heart sounds are regular and lungs sound clear to auscultation. Abdomen soft, and nontender, and bowel sounds are normal. Extremities without any cyanosis or clubbing. She has trace of lower extremity edema. Neurologically she is awake and without a focal deficit. LABORATORY DATA: On December 19 her BUN was 22 and creatinine 0.94. Today BUN is 24 and creatinine 0.78. Sodium 141 and potassium 3.7. WBC count is 11.4, hemoglobin 11.9, and hematocrit 36.7, platelets 233. PROBLEMS: 1. Chronic kidney disease. her kidney function seems to be stable at present with GFR between 50 and about 60 mL per minute. Electrolytes are stable no evidence of metabolic acidosis. 2. Peripheral edema with possible diastolic congestive heart failure. At this point, I do not have any recent echocardiogram available. She has been on chronic diuretic with lower extremity edema. She has only minimal edema at this point. She is receiving furosemide 40 mg twice a day, and we will monitor and make adjustments as needed. 3. Hypertension. She is currently on metoprolol 25 mg twice a day and hydralazine 25 mg three times a day along with diuretic. Her blood pressure seems to be very well controlled. 4. Urinary tract infection (UTI). She did have a urinalysis done during her recent admission, and in view of altered mentation and generalized weakness, I will recommend to get a urinalysis to rule out any possibility of UTI. Thank you for involving me in the care of Mrs. Bhagat. Nephrology service will follow her along with you. %%CCLIST%%
[2020-12-22 06:00] VITALS: BP 130/65
[2020-12-22] MEDS: HumaLOG INSULIN (NovoLOG) PER UNIT SC SCH ×4 (07:30→21:18)
[2020-12-22] MEDS: FUROSEMIDE 40 MG TAB PO SCH ×2 (07:44→17:30)
[2020-12-22] MEDS: POTASSIUM CHLORIDE 10MEQ SR TABLET PO SCH ×2 (07:44→21:16)
[2020-12-22] MEDS: MULTIVITAMINS/MINERALS THERAP 1 TAB PO SCH (07:44)
[2020-12-22] MEDS: SITagliptin 50 MG TAB (JANUVIA) PO SCH (07:44)
[2020-12-22] MEDS: PANTOPRAZOLE 40MG TAB (PROTONIX) PO SCH (07:44)
[2020-12-22] MEDS: METOPROLOL TART 25 MG TABLET PO SCH ×2 (07:44→21:17)
[2020-12-22] MEDS: LACTOBACILLUS ACIDOPHILUS CAP (BACID) PO SCH ×4 (07:44→21:17)
[2020-12-22] MEDS: DOCUSATE SODIUM 100MG CAPSULE PO SCH ×2 (07:45→21:00)
[2020-12-22] MEDS: LEVEMIR (INSULIN DETEMIR) 1 UNITS/0.01ML SC SCH ×2 (07:45→21:18)
[2020-12-22] MEDS: **hydrALAZINE HCL** 25 MG TAB PO SCH ×3 (07:45→21:17)
[2020-12-22] MEDS: APIXABAN 5 MG TAB (ELIQUIS) PO SCH ×2 (09:50→21:17)
--- NOTE | 2020-12-22 11:33 | REP ---
INDICATION: vasc congestion? COMPARISON: 06/01/2020, 12/09/2020. TECHNIQUE: PA/Lateral FINDINGS: There is biapical calcified pleural plaquing again noted. There is an ill-defined parenchymal opacity in the right upper lobe, in the range of approximately 2.5 to 3 cm in diameter. Differential diagnosis would include focal pleural plaque, developing nodule or small area of infiltrate. There is mild cardiomegaly. There is calcification of the thoracic aorta. The mediastinal silhouette is unchanged. The visualized osseous structures appear intact. There is mild elevation of the right hemidiaphragm unchanged. IMPRESSION: Biapical calcified pleural plaques. Mild cardiomegaly with no vascular congestion. Ill-defined 2.5-3 cm parenchymal opacity in the right upper lobe may represent part of the pleural plaquing, but I cannot exclude a developing parenchymal nodule or small area of infiltrate. Follow-up CT chest recommended. <Electronically signed by Spencer Crawford > 12/22/20 [id number]
[2020-12-22 14:00] VITALS: BP 130/71
--- NOTE | 2020-12-22 14:30 | REP ---
INDICATION: r/o infiltrate COMPARISON: None. TECHNIQUE: Standard helical technique without intravenous contrast administration. This causes exam limitations. FINDINGS: There is no mediastinal or hilar adenopathy. There are no pleural or pericardial effusions. Bone window technique throughout the examination shows multifocal areas of lytic and particularly blastic appearing lesions scattered throughout the axial and appendicular skeleton. The imaged upper abdomen is within normal limits. Evaluation of the lung rizo shows an irregular somewhat spiculated right upper lobe density which measures approximately 3.2 by 3 by 1.1 cm. This is seen surrounding an irregular calcification. This appears to be causing some pleural tenting. In the left lung base there is a 1.7 by 1.1 cm sized nodule. The lung bases are obscured by respiratory motion artifact for the most part. There is multifocal calcified and noncalcified irregular pleural thickening seen bilaterally. There are scattered bilateral lung parenchymal calcifications likely calcified granulomas. IMPRESSION: 1. Abnormal lung field findings as described above. Malignancy cannot be ruled out. According to the revised Fleischner society criteria PET-CT is indicated. There are no priors for comparison. 2. There is evidence of skeletal metastatic disease. There are no priors for comparison. 3. Other findings as described above. <Electronically signed by Cooper Charles > 12/22/20 [id number]
[2020-12-22] MEDS ORDERED: ISOVUE-370 76% 100ML VIAL As Ordered ONE (16:06)
--- NOTE | 2020-12-22 17:04 | REP ---
INDICATION: immobility COMPARISON: 12/10/2020. TECHNIQUE: Real time compression and duplex Doppler interrogation of the bilateral lower extremity deep venous system is performed. Compression ultrasound is performed of the bilateral peroneal and posterior tibial veins. FINDINGS: Bilaterally, the common femoral, superficial femoral and popliteal veins are fully compressible with transducer pressure and demonstrate normal spontaneous and phasic flow, without evidence of deep venous thrombosis. The bilateral peroneal and posterior tibial veins could not be visualized due to body habitus and soft tissue edema. IMPRESSION: No evidence of deep venous thrombosis of the bilateral lower extremity femoral popliteal venous system. <Electronically signed by Spencer Crawford > 12/22/20 [id number]
[2020-12-22 17:29] VITALS: BP 123/74
--- NOTE | 2020-12-22 18:06 | REPVR ---
PROCEDURE INFORMATION: Exam: CTA Chest With Contrast Exam date and time: 12/22/2020 5:03 PM Age: 85 years old Clinical indication: Shortness of breath; Additional info: R/O pe TECHNIQUE: Imaging protocol: Computed tomographic angiography of the chest with contrast. 3D rendering (Not supervised by radiologist): MIP and/or 3D reconstructed images were created by the technologist. Radiation optimization: All CT scans at this facility use at least one of these dose optimization techniques: automated exposure control; mA and/or kV adjustment per patient size (includes targeted exams where dose is matched to clinical indication); or iterative reconstruction. Contrast material: ISOVUE 370; Contrast volume: 75 ml; Contrast route: INTRAVENOUS (IV); COMPARISON: CT Chest without contrast 12/22/2020 12:43 PM FINDINGS: Pulmonary arteries: There are no pulmonary emboli. Aorta: There is mild atherosclerosis in the thoracic aorta. There is no aortic dissection or aneurysm. Lungs: Bilateral apical and upper lobe pleural calcifications, stable. Calcified granulomatous demonstrated bilaterally. Bilateral ground-glass opacities in the middle, lingular and lower lobes more likely atelectatic an infectious, to be evaluated clinically. Bibasilar parenchymal opacities, left greater than right, stable in comparison to the prior study. Redemonstration of a elongated partially calcified lobular parenchymal opacity in the right upper lobe measuring approximately 2.7 x 0.9 x 1.2 cm. Pleural spaces: Unremarkable. No pneumothorax. No pleural effusion. Heart: Unremarkable. No cardiomegaly. No pericardial effusion. Lymph nodes: Unremarkable. No enlarged lymph nodes. Liver: 9 mm hypodense focus posterior aspect of the right lobe of the liver not fully evaluated on this single phase examination. 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 Bones/joints: Benign-appearing calcifications left humeral head. Multiple sclerotic foci demonstrated in the thoracic vertebrae including the posterior elements at several levels. 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 Soft tissues: Unremarkable. IMPRESSION: 1. Bilateral ground-glass opacities in the middle, lingular and lower lobes more likely atelectatic an infectious, to be evaluated clinically. 2. Redemonstration of a elongated partially calcified lobular parenchymal opacity in the right upper lobe measuring approximately 2.7 x 0.9 x 1.2 cm. Correlation with prior CT if available suggested. Otherwise further evaluation may be indicated including PET imaging according to Fleischner guidelines. 3. Multiple sclerotic foci demonstrated in the thoracic vertebrae including the posterior elements at several levels. 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 4. There is no aortic dissection or aneurysm. 5. There are no pulmonary emboli. 6. Findings consistent with remote intrathoracic granulomatous infection. Electronically signed by: Uriah Krishnamurthy On 12/22/2020 18:06:16 PM
[2020-12-22 20:00] VITALS: BP 145/68
[2020-12-22] MEDS: SENNA 8.6 MG TAB (SENOKOT) PO SCH (21:00)
[2020-12-22] MEDS: SIMVASTATIN 40 MG TAB PO SCH (21:16)
--- NOTE | 2020-12-22 21:58 | IPN ---
PROGRESS NOTE DATE: 12/22/2020 SUBJECTIVE: Mrs. Bhagat is seen this morning on her bedside. She is sitting in the chair at the time of my visit today. She is awake and alert and able to answer questions. She denies any dyspnea, chest pain, nausea or vomiting. She does report some back pain. PHYSICAL EXAMINATION: VITALS: Temperature 97 degrees Fahrenheit, heart rate 78 per minute, respiratory rate 18 per minute, blood pressure 130/70 mmHg, oxygen saturation 96% on room air. HEENT: Head is atraumatic. Neck is supple and without any JVD sitting upright. LUNGS: Clear to auscultation. HEART: Sounds are regular. ABDOMEN: Soft and nontender. Bowel sounds are normal. EXTREMITIES: Without any cyanosis or clubbing. Trace bilateral lower extremity edema is noted. NEURO: She is awake and without a focal deficit. She is much more interacting today. IMAGING STUDIES: Patient had multiple imaging studies done today, including a chest x-ray, chest CT scan, CT angiogram and vascular ultrasound of lower extremities. Her ultrasound was negative for DVT. CT angiogram was negative for pulmonary emboli, however, she is noticed to have multiple blastic lesions in her bones. She is also noticed to have some pulmonary nodules. Chest CT scan again did show pulmonary nodules and scattered metastatic lesions. She has a known history of metastatic breast cancer. LABORATORY STUDIES: Her only lab done today is a BNP level, which was 269. PROBLEMS: 1. Congestive heart failure: Her volume status seems reasonably well compensated with minimal lower extremity edema. She is on Furosemide 40 mg b.i.d. and I feel that this is appropriate dose. 2. Hypertension: Blood pressure much better controlled with Metoprolol 25 mg b.i.d., Hydralazine 25 mg t.i.d. and Furosemide 40 mg b.i.d. 3. Hyponatremia: She had hyponatremia with encephalopathy, however, her sodium level has corrected and remains stable. 4. Bony metastatic lesions: She has known history of metastatic breast cancer and probably that is showing in her radiology studies.
[2020-12-23 06:00] VITALS: BP 148/68
[2020-12-23 06:40] LABS: HEMATOCRIT 34.4 % (36.0-47.0); HEMOGLOBIN 11.4 g/dl (12.0-15.5); MEAN CORPUSCULAR HEMOGLOBIN 34.1 pg (27.0-33.0); MEAN CORPUSCULAR HGB CONC 33.1 g/dl (32.0-36.5); PLATELET COUNT, AUTOMATED 240 10^3/uL (150-450); RED BLOOD COUNT 3.34 10^6/uL (4.00-5.40); WHITE BLOOD COUNT 10.9 10^3/uL (4.0-10.0)
[2020-12-23 06:57] LABS: BLOOD UREA NITROGEN 24 MG/DL (7-18); CALCIUM LEVEL 8.8 MG/DL (8.8-10.2); CARBON DIOXIDE LEVEL 29 MEQ/L (21-32); CHLORIDE LEVEL 106 MEQ/L (98-107); GLOMERULAR FILTRATION RATE > 60.0 (>32); GLUCOSE, FASTING 132 MG/DL (70-100); POTASSIUM SERUM 3.6 MEQ/L (3.5-5.1); SODIUM LEVEL 140 MEQ/L (136-145)
[2020-12-23 07:06] LABS: ATYPICAL LYMPH 8 % (0-5); LYMPHOCYTES 24 % (16-44); METAMYELOCYTES 1 % (0-0); MONOCYTES 4 % (0-5); MYELOCYTES 9 % (0-0); NEUTROPHILS 54 % (28-66)
[2020-12-23 07:07] LABS: ANISOCYTOSIS 1+; PLATELET ESTIMATE NORMAL (NORMAL); POIKILOCYTOSIS 1+; POLYCHROMASIA 1+
[2020-12-23] MEDS: LEVEMIR (INSULIN DETEMIR) 1 UNITS/0.01ML SC SCH ×2 (08:28→20:29)
[2020-12-23] MEDS: LACTOBACILLUS ACIDOPHILUS CAP (BACID) PO SCH ×4 (08:29→20:29)
[2020-12-23] MEDS: HumaLOG INSULIN (NovoLOG) PER UNIT SC SCH ×4 (08:29→20:37)
[2020-12-23] MEDS: FUROSEMIDE 40 MG TAB PO SCH ×2 (08:30→17:17)
[2020-12-23] MEDS: PANTOPRAZOLE 40MG TAB (PROTONIX) PO SCH (08:30)
[2020-12-23] MEDS: APIXABAN 5 MG TAB (ELIQUIS) PO SCH ×2 (08:30→20:31)
[2020-12-23] MEDS: DOCUSATE SODIUM 100MG CAPSULE PO SCH ×2 (08:30→20:29)
[2020-12-23] MEDS: MULTIVITAMINS/MINERALS THERAP 1 TAB PO SCH (08:30)
[2020-12-23] MEDS: SITagliptin 50 MG TAB (JANUVIA) PO SCH (08:30)
[2020-12-23] MEDS: METOPROLOL TART 25 MG TABLET PO SCH ×2 (08:31→20:30)
[2020-12-23] MEDS: POTASSIUM CHLORIDE 10MEQ SR TABLET PO SCH ×2 (08:31→20:31)
[2020-12-23] MEDS: **hydrALAZINE HCL** 25 MG TAB PO SCH ×3 (08:31→20:30)
[2020-12-23 09:42] VITALS: BP 148/68
--- NOTE | 2020-12-23 10:03 | CR.PDOC ---
General Date of Consultation: Dec 23, 2020 Referring Provider: RAZA RAMOS MD Attending Physician: RAZA RAMOS MD Consultation REASON FOR CONSULTATION/CHIEF COMPLAINT: Shortness of breath. HISTORY OF PRESENT ILLNESS: This is a 84-year-old female with past medical history of stage IV breast cancer, diastolic heart failure, atrial fibrillation on Eliquis, hypertension, hyperlipidemia, history is a pulmonary embolism who was admitted to [facility] with altered mental status. On admission patient was found to be encephalopathic and further work-up revealed she had sepsis due to urinary tract infection and electrolyte abnormalities. She was treated with antibiotic. CT scan of the brain showed multiple sclerotic skull foci of unclear significance with possibility of metastatic process. Patient improved with antibiotic and corrections electrolyte abnormalities and she was subsequently discharged to acute rehab on December 13, 2020. While in rehab, patient was complaining of shortness of breath for several weeks. Therefore further work-up done including CT scan of the chest show evidence of multiple pulmonary nodules which are calcified in the apexes and a small subpleural nodule in the left lower lobe. CT angiography of the chest showed no evidence of acute pulmonary embolism. Because of this finding, pulmonary was consulted for further recommendation and possible biopsy. Further questioning of patient, patient denies of fever, chills, night sweat, weight loss, diaphoresis, chest pain, cough, hemoptysis, orthopnea. She has lived in the same house with her daughter for the last 10 years and prior to this she lives in the different house with her son for many years. She denies any history of occupational exposure. 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 She denies history is a pet allergy. ALLERGIES: Please see below. HOME MEDICATIONS: Please see below. PAST MEDICAL HISTORY: As stated in HPI, she has history of stage IV breast cancer, hypertension, hyperlipidemia, diastolic heart failure, atrial fibrillation and pulmonary embolism. PAST SURGICAL HISTORY: She had no significant surgery in the past. FAMILY HISTORY: No significant family history. And this is not contributory to her hospital admission. SOCIAL HISTORY: She denies history of smoking, alcohol use or illicit drug use. She lives in the same house with her daughter. Prior to this she was living in the same house with her son. 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 REVIEW OF SYSTEMS: CONSTITUTIONAL: Denies of fatigue, fever, chills, weight loss, night sweats, diaphoresis, appetite change. HEENT: Denies of sinusitis or sore throat. CARDIOVASCULAR: Denies of chest pain, orthopnea, PND. Admits to lower extremity swelling RESPIRATORY: Admits to shortness of breath. Denies cough, wheezing, hemoptysis. GENITOURINARY: Denies dysuria. MUSCULOSKELETAL: Denies joint pain or joint swelling. GASTROINTESTINAL: Denies abdominal pain, nausea, vomiting, blood in stool, constipation. SKIN: Denies rash. NEUROLOGICAL: Denies slurred speech or focal weakness. PSYCHIATRIC: Denies depression. ENDOCRINE: Denies weight change. HEMATOLOGIC/LYMPHATIC: Denies bleeding. ALLERGIC/IMMUNOLOGIC: Denies allergy. PHYSICAL EXAMINATION: VITAL SIGNS: Please see below. GENERAL APPEARANCE: Patient is not in any acute distress. She is speaking full sentences, she is alert and oriented x3. She is very hard of hearing. HEENT: No evidence of JVD or cervical adenopathy. RESPIRATORY: Bibasilar crackles. No evidence of wheezing, diminished breath cirilo nds CARDIOVASCULAR: Regular S1-S2. No evidence of murmur ABDOMEN: Slight distention, soft, nontender, normal bowel sounds. EXTREMITIES: Lower extremity swelling but they are wrapped. NEUROLOGICAL: Nonfocal. PSYCHIATRIC: Alert and oriented x3. LABORATORY DATA: Please see below. ASSESSMENT/PLAN: This is a 84-year-old female with past medical history of stage IV breast cancer, diastolic heart failure, atrial fibrillation on Eliquis, hypertension, hyperlipidemia, history is a pulmonary embolism who was admitted to [facility] with altered mental status. Further work-up revealed that she had multiple calcified pulmonary nodules and pulmonary was consulted for this. 1. Shortness of breath 2. Multiple pulmonary nodules which are somewhat calcified. -I clearly reviewed the images of the CT scan myself. I have spoken with Dr. Araiza from [facility] and CT scan results with compare. The calcified nodules as well as left lower lobe nodule appeared to be the same on the CT scan done in July of this year compare to the current CT scan. 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 Either way she will likely need a repeat CT scan or PET CT scan. Dr Araiza has already arranged for her to have a PET CT scan done in January of this year. No intervention is needed from pulmonary standpoint. Thank you for consultation. Vital Signs/I&O Vital Signs Date Time Temp Pulse Resp B/P (MAP) Pulse Ox O2 Delivery O2 Flow Rate FiO2 12/23/20 09:42 96.7 80 19 148/68 96 Room Air I&O- Last 24 Hours up to 6 AM 12/23/20 06:00 Intake Total 640 ml Balance 640 ml Laboratory Data Labs 24H Laboratory Tests 2 12/22/20 11:02: MB-Liz-B-Type Natriuretic Peptide 269 12/22/20 11:25: Bedside Glucose (Misc Panel) 264H 12/22/20 17:26: Bedside Glucose (Misc Panel) 243H 12/22/20 20:25: Bedside Glucose (Misc Panel) 321H 12/23/20 05:35: Immature Granulocyte % (Auto) , Neutrophils (%) (Auto) , Nucleated Red Blood Cells % (auto) 0.8H, Neutrophils 54, Lymphocytes (Manual) 24, Monocytes (Manual) 4, Metamyelocytes 1H, Myelocytes 9H, Atypical Lymphocytes 8H, Polychromasia 1+, Poikilocytosis 1+, Anisocytosis 1+, Macrocytosis 2+, Platelet Estimate NORMAL, Anion Gap 5L, Glomerular Filtration Rate > 60.0, Calcium Level 8.8 12/23/20 06:15: Bedside Glucose (Misc Panel) 131H CBC/BMP Laboratory Tests 12/23/20 05:35 Allergies Coded Allergies: No Known Drug Allergies (Verified Allergy, Unknown, 12/09/20) Home Medications Scheduled Apixaban (Eliquis) 5 Mg Tablet, 5 MG PO BID, (Reported) Dexamethasone (Dexamethasone) 2 Mg Tablet, 2 MG PO DAILY, (Reported) Furosemide (Furosemide) 40 Mg Tablet, 40 MG PO DAILY, (Reported) Glipizide (Glipizide) 5 Mg Tablet, 5 MG PO ACB, (Reported) OBTAINED FROM EXTERNAL HISTORY Potassium Chloride (Klor-Con M10) 10 Meq Tab.er.prt, 10 MEQ PO BID, (Reported) WITH FOOD OBTAINED FROM EXTERNAL HISTORY Simvastatin (Simvastatin) 40 Mg Tablet, 40 MG PO QPM, (Reported) OBTAINED FROM EXTERNAL Sitagliptin (Januvia) 50 Mg Tablet, 50 MG PO DAILY, (Reported) OBTAINED FROM EXTERNAL HISTORY MADISON KRISHNA MD Dec 23, 2020 10:03
--- NOTE | 2020-12-23 11:30 | IPNPDOC ---
PM&R Progress Note DATE OF SERVICE: Dec 22, 2020 [employer] Progress Note Subjective: Patient seen in her room on her nba to CT scan stating she felt ok and that her breathing was a little better today. REVIEW OF SYSTEMS: The following is a completed review of systems and has been reviewed. Review of systems otherwise unremarkable. PAIN: Patient self reports no pain EYES: No recent vision changes EARS, NOSE, & THROAT: No throat pain, or dysphagia, or rhinorrhea CARDIOVASCULAR: Denies chest pain or palpitations PULMONARY: + shortness of breath on exertion GASTROINTESTINAL: Denies constipation/diarrhea GENITOURINARY: denies dysuria MUSCULOSKELETAL: generalized weakness NEUROLOGICAL:+encephalopathic (improved), +peripheral polyneuropathy HEMATOLOGICAL: +easy bruising SKIN: ecchymotic PSYCHIATRIC: unremarkable All other review of systems found to be negative. PHYSICAL EXAMINATION: VITAL SIGNS: Please see below. GENERAL: Pleasant and cooperative. No acute distress. Rodriguez facies HEENT: PERRL. Extraocular movements intact. Clear conjunctiva CARDIOVASCULAR: Regular rate and rhythm. No murmurs, rubs, or gallops LUNGS: Clear to auscultation bilaterally. No wheezes. No rhonchi ABDOMEN: distended, firm, non-tender, no guarding, Normal active bowel sounds NEUROLOGICAL: Alert and oriented x3 Cranial nerves II through XII grossly intact. Sensation decreased to light touch in stocking pattern EXTREMITIES: 4+\5 strength bilateral upper extremities. 4\5 strength right lower extremity. 4/5 strength in left lower extremity. +pitting edema bilat LE (improving) SKIN: scattered ecchymosis, ASSESSMENT:85-year-old F with past medical history of metastatic breast cancer who presents status post weakness due to sepsis and metabolic encephalopathy PLAN: 1. Rehab-PT/OT advance mobility and ADLs, strengthen/stretch/maintain ROM all 4 limbs, ambulating with RW 2. Neuro- s/p recent metabolic encephalopathy due to hyponatremia and sepsis, continue to manage electrolytes and infection, patient able to follow commands and is oriented today x3 3. Cardiac- hx of Afib on eliquis -HTN with elevated blood pressures that have improved adjusting hydralazine to 25mg TID scheduled with holding parameters -HLD cont statin -diastolic CHF- daily weights, fluid restrict, lasix (increased to 40mg BID), edema improving,BNP WNL- renal recs appreciated -medicine consulted to assist in overall management 4. Resp- monitor for infection, patient with increased SOB with exertion, CT chest ordered showing bilat nodules and parenchymal changes, discussed with hospitalist who suggested r/o PE (CTA and Doppelrs ordered) and pulm consult, no infection suspected at this time -hx of PE on eliquis 5. 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 GI ppx- protonix 7. DVT ppx- on eliquis 8. Endo- DM on decadron with hyperglycemia cont levemir (increased daytime dose to 25unit, cont 18units qhs) and ISS, on Januvia (increasing to 100mg daily) 9. PAin- tylenol and oxycodone 10. ID- s/p course of Cefdinir for possible UTI and +blood culture, bacid added, patient with persistent low grade leukocytosis likely due to decadron 11. Hypokalemia- resolved, cont to monitor 12. Dispo- Discussed case with daughter Ana who agreed patient seemed more short of breath on family training and thinks mom should stay through weekend for further work-up- goal to home 12-26-20 Allergies Coded Allergies: No Known Drug Allergies (Verified Allergy, Unknown, 12/09/20) Vital Signs Vital Signs Date Time Temp Pulse Resp B/P (MAP) Pulse Ox O2 Delivery O2 Flow Rate FiO2 12/23/20 09:42 96.7 80 19 148/68 96 Room Air Laboratory Data CBC/BMP Laboratory Tests 12/23/20 05:35 Labs 24H Laboratory Tests 2 12/22/20 17:26: Bedside Glucose (Misc Panel) 243H 12/22/20 20:25: Bedside Glucose (Misc Panel) 321H 12/23/20 05:35: Immature Granulocyte % (Auto) , Neutrophils (%) (Auto) , Nucleated Red Blood Cells % (auto) 0.8H, Neutrophils 54, Lymphocytes (Manual) 24, Monocytes (Manual) 4, Metamyelocytes 1H, Myelocytes 9H, Atypical Lymphocytes 8H, Polychromasia 1+, Poikilocytosis 1+, Anisocytosis 1+, Macrocytosis 2+, Platelet Estimate NORMAL, Anion Gap 5L, Glomerular Filtration Rate > 60.0, Calcium Level 8.8 12/23/20 06:15: Bedside Glucose (Misc Panel) 131H 12/23/20 11:22: Bedside Glucose (Misc Panel) 212H Current Medications Current Medications Current Medications Medications (Trade) Dose Ordered Sig/Marley Route PRN Reason Start Time Stop Time Status Last Admin Dose Admin Acetaminophen (Tylenol Tab) 650 mg Q4HP PRN PO MILD PAIN (PS 1-4) 12/13/20 16:45 12/19/20 13:31 Albuterol/ Ipratropium (Combivent Respimat 100-20mcg) 1 puff RTID INH 12/23/20 14:00 Apixaban (Eliquis) 5 mg BID PO 12/13/20 21:00 12/23/20 08:30 Cefdinir (Omnicef) 300 mg BID PO 12/14/20 15:30 12/14/20 15:53 DC 12/14/20 15:39 Cefdinir (Omnicef) 300 mg BID PO 12/14/20 23:00 12/16/20 21:01 DC 12/16/20 21:33 Dexamethasone (Decadron) 2 mg DAILY PO 12/14/20 09:00 12/23/20 08:29 Dextrose (Dextrose 50%) 25 ml ASDIRECTED PRN IV SEE LABEL COMMENTS 12/13/20 16:45 Docusate Sodium (Colace) 100 mg BID PO 12/13/20 21:00 12/23/20 08:30 Furosemide (Lasix) 40 mg BID@09,17 PO 12/14/20 17:00 12/23/20 08:30 Furosemide (Lasix) 40 mg DAILY PO 12/14/20 09:00 12/14/20 15:55 DC 12/14/20 09:20 Glucagon (Glucagon) 1 mg ASDIRECTED PRN SC SEE LABEL COMMENTS 12/13/20 16:45 Glucose (Glucose) 16 GM ASDIRECTED PRN PO SEE LABEL COMMENTS 12/13/20 16:45 Home Med (Home Med List Complete!) ASDIRECTED XX 12/20/20 07:30 12/20/20 07:29 DC Hydralazine HCl (Apresoline) 10 mg Q12HP PRN PO sbp >180 or DBP >100 12/13/20 21:00 12/15/20 09:16 DC Hydralazine HCl (Apresoline) 25 mg TID PO 12/15/20 09:00 12/23/20 08:31 Insulin Detemir (Levemir Insulin) 10 units BID SC 12/13/20 21:00 12/15/20 09:15 DC 12/15/20 07:59 Insulin Detemir (Levemir Insulin) 15 units BID SC 12/15/20 21:00 12/16/20 12:39 DC 12/16/20 08:26 Insulin Detemir (Levemir Insulin) 18 units BID SC 12/16/20 21:00 12/19/20 08:53 DC 12/19/20 07:46 Insulin Detemir (Levemir Insulin) 18 units QHS SC 12/19/20 21:00 12/22/20 21:18 Insulin Detemir (Levemir Insulin) 25 units DAILY DC 12/20/20 09:00 12/23/20 08:28 Insulin Human Lispro (HumaLOG INSULIN) SEE PROTOCOL TABLE AC DC 12/14/20 07:30 12/23/20 08:29 Insulin Human Lispro (HumaLOG INSULIN) SEE PROTOCOL TABLE QHS DC 12/13/20 21:00 12/22/20 21:18 Lactobacillus Acidophilus (Bacid) 1 ea WMHS PO 12/14/20 18:00 12/23/20 08:29 Metoprolol Tartrate (Lopressor) 25 mg BID PO 12/16/20 09:00 12/23/20 08:31 Multivitamins (Theragram-M) 1 tab DAILY PO 12/14/20 09:00 12/23/20 08:30 Pantoprazole Sodium (Protonix) 40 mg DAILY PO 12/14/20 09:00 12/23/20 08:30 Potassium Chloride (Micro-K Extencaps) 10 meq BID PO 12/13/20 21:00 12/23/20 08:31 Senna (Senokot) 1 tab QHS PO 12/13/20 21:00 12/20/20 22:15 Simvastatin (Zocor) 40 mg QHS PO 12/13/20 21:00 12/22/20 21:16 Sitagliptin Phosphate (Januvia) 50 mg DAILY PO 12/14/20 09:00 12/19/20 11:44 DC 12/19/20 07:46 Sitagliptin Phosphate (Januvia) 75 mg DAILY PO 12/20/20 09:00 12/20/20 16:04 DC 12/20/20 08:21 Sitagliptin Phosphate (Januvia) 100 mg DAILY PO 12/21/20 09:00 12/23/20 08:30 RAZA RAMOS MD Dec 23, 2020 11:30
--- NOTE | 2020-12-23 11:34 | IPNPDOC ---
PM&R Progress Note DATE OF SERVICE: Dec 23, 2020 [employer] Progress Note Subjective: Patient seen in her room stating she is feeling good today and understands she will need to follow-up with her oncologist and may need to start seeing a lmonologist regularly. REVIEW OF SYSTEMS: The following is a completed review of systems and has been reviewed. Review of systems otherwise unremarkable. PAIN: Patient self reports no pain EYES: No recent vision changes EARS, NOSE, & THROAT: No throat pain, or dysphagia, or rhinorrhea CARDIOVASCULAR: Denies chest pain or palpitations PULMONARY: + shortness of breath on exertion GASTROINTESTINAL: Denies constipation/diarrhea GENITOURINARY: denies dysuria MUSCULOSKELETAL: generalized weakness NEUROLOGICAL:+encephalopathic (improved), +peripheral polyneuropathy HEMATOLOGICAL: +easy bruising SKIN: ecchymotic PSYCHIATRIC: unremarkable All other review of systems found to be negative. PHYSICAL EXAMINATION: VITAL SIGNS: Please see below. GENERAL: Pleasant and cooperative. No acute distress. Rodriguez facies HEENT: PERRL. Extraocular movements intact. Clear conjunctiva CARDIOVASCULAR: Regular rate and rhythm. No murmurs, rubs, or gallops LUNGS: Clear to auscultation bilaterally. No wheezes. No rhonchi ABDOMEN: distended, firm, non-tender, no guarding, Normal active bowel sounds NEUROLOGICAL: Alert and oriented x3 Cranial nerves II through XII grossly intact. Sensation decreased to light touch in stocking pattern EXTREMITIES: 4+\5 strength bilateral upper extremities. 4\5 strength right lower extremity. 4/5 strength in left lower extremity. +pitting edema bilat LE (improving) SKIN: scattered ecchymosis, ASSESSMENT:85-year-old F with past medical history of metastatic breast cancer who presents status post weakness due to sepsis and metabolic encephalopathy PLAN: 1. Rehab-PT/OT advance mobility and ADLs, strengthen/stretch/maintain ROM all 4 limbs, ambulating with RW 2. Neuro- s/p recent metabolic encephalopathy due to hyponatremia and sepsis, continue to manage electrolytes and infection, patient able to follow commands and is oriented today x3 3. Cardiac- hx of Afib on eliquis -HTN with elevated blood pressures that have improved adjusting hydralazine to 25mg TID scheduled with holding parameters -HLD cont statin -diastolic CHF- daily weights, fluid restrict, lasix (increased to 40mg BID), edema improving,BNP WNL- renal recs appreciated -medicine consulted to assist in overall management 4. Resp- monitor for infection, patient with increased SOB with exertion, CT chest ordered showing bilat nodules and parenchymal changes, discussed with hospitalist who suggested r/o PE (CTA and Dopplers both negative) -pulm consulted and recs greatly appreciated- lung changes seen on CT chest stable, will need f/u with Dr. Araiza her oncologist, bony blastic spine changes also to be followed up by oncology -no infection suspected at this time, will start Combivent for respiratory support -hx of PE on eliquis 5. 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 GI ppx- protonix 7. DVT ppx- on eliquis 8. Endo- DM on decadron with hyperglycemia cont levemir (increased daytime dose to 25unit, cont 18units qhs) and ISS, on Januvia (increased to 100mg daily) 9. PAin- tylenol and oxycodone 10. ID- s/p course of Cefdinir for possible UTI and +blood culture, bacid added, patient with persistent low grade leukocytosis likely due to decadron 11. Hypokalemia- resolved, cont to monitor 12. Dispo- Discussed case with daughter Ana who agreed patient seemed more short of breath on family training and thinks mom should stay through weekend for further work-up- goal to home 12-26-20 Allergies Coded Allergies: No Known Drug Allergies (Verified Allergy, Unknown, 12/09/20) Vital Signs Vital Signs Date Time Temp Pulse Resp B/P (MAP) Pulse Ox O2 Delivery O2 Flow Rate FiO2 12/23/20 09:42 96.7 80 19 148/68 96 Room Air Laboratory Data CBC/BMP Laboratory Tests 12/23/20 05:35 Labs 24H Laboratory Tests 2 12/22/20 17:26: Bedside Glucose (Misc Panel) 243H 12/22/20 20:25: Bedside Glucose (Misc Panel) 321H 12/23/20 05:35: Immature Granulocyte % (Auto) , Neutrophils (%) (Auto) , Nucleated Red Blood Cells % (auto) 0.8H, Neutrophils 54, Lymphocytes (Manual) 24, Monocytes (Manual) 4, Metamyelocytes 1H, Myelocytes 9H, Atypical Lymphocytes 8H, Polychromasia 1+, Poikilocytosis 1+, Anisocytosis 1+, Macrocytosis 2+, Platelet Estimate NORMAL, Anion Gap 5L, Glomerular Filtration Rate > 60.0, Calcium Level 8.8 12/23/20 06:15: Bedside Glucose (Misc Panel) 131H 12/23/20 11:22: Bedside Glucose (Misc Panel) 212H Current Medications Current Medications Current Medications Medications (Trade) Dose Ordered Sig/Marley Route PRN Reason Start Time Stop Time Status Last Admin Dose Admin Acetaminophen (Tylenol Tab) 650 mg Q4HP PRN PO MILD PAIN (PS 1-4) 12/13/20 16:45 12/19/20 13:31 Albuterol/ Ipratropium (Combivent Respimat 100-20mcg) 1 puff RTID INH 12/23/20 14:00 Apixaban (Eliquis) 5 mg BID PO 12/13/20 21:00 12/23/20 08:30 Cefdinir (Omnicef) 300 mg BID PO 12/14/20 15:30 12/14/20 15:53 DC 12/14/20 15:39 Cefdinir (Omnicef) 300 mg BID PO 12/14/20 23:00 12/16/20 21:01 DC 12/16/20 21:33 Dexamethasone (Decadron) 2 mg DAILY PO 12/14/20 09:00 12/23/20 08:29 Dextrose (Dextrose 50%) 25 ml ASDIRECTED PRN IV SEE LABEL COMMENTS 12/13/20 16:45 Docusate Sodium (Colace) 100 mg BID PO 12/13/20 21:00 12/23/20 08:30 Furosemide (Lasix) 40 mg BID@,17 PO 12/14/20 17:00 12/23/20 08:30 Furosemide (Lasix) 40 mg DAILY PO 12/14/20 09:00 12/14/20 15:55 DC 12/14/20 09:20 Glucagon (Glucagon) 1 mg ASDIRECTED PRN SC SEE LABEL COMMENTS 12/13/20 16:45 Glucose (Glucose) 16 GM ASDIRECTED PRN PO SEE LABEL COMMENTS 12/13/20 16:45 Home Med (Home Med List Complete!) ASDIRECTED XX 12/20/20 07:30 12/20/20 07:29 DC Hydralazine HCl (Apresoline) 10 mg Q12HP PRN PO sbp >180 or DBP >100 12/13/20 21:00 12/15/20 09:16 DC Hydralazine HCl (Apresoline) 25 mg TID PO 12/15/20 09:00 12/23/20 08:31 Insulin Detemir (Levemir Insulin) 10 units BID SC 12/13/20 21:00 12/15/20 09:15 DC 12/15/20 07:59 Insulin Detemir (Levemir Insulin) 15 units BID SC 12/15/20 21:00 12/16/20 12:39 DC 12/16/20 08:26 Insulin Detemir (Levemir Insulin) 18 units BID LA 12/16/20 21:00 12/19/20 08:53 DC 12/19/20 07:46 Insulin Detemir (Levemir Insulin) 18 units QHS LA 12/19/20 21:00 12/22/20 21:18 Insulin Detemir (Levemir Insulin) 25 units DAILY LA 12/20/20 09:00 12/23/20 08:28 Insulin Human Lispro (HumaLOG INSULIN) SEE PROTOCOL TABLE AC LA 12/14/20 07:30 12/23/20 08:29 Insulin Human Lispro (HumaLOG INSULIN) SEE PROTOCOL TABLE QHS LA 12/13/20 21:00 12/22/20 21:18 Lactobacillus Acidophilus (Bacid) 1 ea WMHS PO 12/14/20 18:00 12/23/20 08:29 Metoprolol Tartrate (Lopressor) 25 mg BID PO 12/16/20 09:00 12/23/20 08:31 Multivitamins (Theragram-M) 1 tab DAILY PO 12/14/20 09:00 12/23/20 08:30 Pantoprazole Sodium (Protonix) 40 mg DAILY PO 12/14/20 09:00 12/23/20 08:30 Potassium Chloride (Micro-K Extencaps) 10 meq BID PO 12/13/20 21:00 12/23/20 08:31 Senna (Senokot) 1 tab QHS PO 12/13/20 21:00 12/20/20 22:15 Simvastatin (Zocor) 40 mg QHS PO 12/13/20 21:00 12/22/20 21:16 Sitagliptin Phosphate (Januvia) 50 mg DAILY PO 12/14/20 09:00 12/19/20 11:44 DC 12/19/20 07:46 Sitagliptin Phosphate (Januvia) 75 mg DAILY PO 12/20/20 09:00 12/20/20 16:04 DC 12/20/20 08:21 Sitagliptin Phosphate (Januvia) 100 mg DAILY PO 12/21/20 09:00 12/23/20 08:30 RAZA RAMOS MD Dec 23, 2020 11:34
[2020-12-23 14:00] VITALS: BP 124/72
[2020-12-23] MEDS: COMBIVENT RESPIMAT 100-20MCG INHALER 4GM INH SCH ×2 (15:31→20:12)
[2020-12-23] MEDS ORDERED: FUROSEMIDE 20 MG TAB PO ONE (17:25)
[2020-12-23 20:00] VITALS: BP 169/73
[2020-12-23] MEDS: SENNA 8.6 MG TAB (SENOKOT) PO SCH (20:30)
[2020-12-23] MEDS: SIMVASTATIN 40 MG TAB PO SCH (20:31)
[2020-12-23] MEDS ORDERED: LEVEMIR (INSULIN DETEMIR) 1 UNITS/0.01ML SC SCH (21:00)
--- NOTE | 2020-12-23 21:37 | IPN ---
NEPHROLOGY PROGRESS NOTE DATE: 12/23/2020 SUBJECTIVE: Mrs. Bhagat is seen this afternoon on her bedside. She is currently sitting in the chair with her feet elevated. She is eating her supper. She denies any dyspnea or chest pain. PHYSICAL EXAMINATION: VITAL SIGNS: Temperature 96.7 degrees Fahrenheit, heart rate 80 per minute, respiratory rate 18 per minute, blood pressure 124/72 mmHg, oxygen saturation 95% on room air. HEAD: Atraumatic. NECK: Supple and jugular venous distention (JVD) difficult to be assessed. HEART SOUNDS: Regular. LUNGS: Clear to auscultation with slightly diminished breath sounds at bases. ABDOMEN: Soft and nontender. Bowel sounds are normal. EXTREMITIES: Without any cyanosis or clubbing. She has increased edema on her lower extremities and they are wrapped in Johnson bandage. NEUROLOGIC: She is awake, alert and oriented times three. LABORATORY DATA: Today's labs show SBC 10.9, hemoglobin 11.4, hematocrit 34.4, platelets 240. Sodium 140, potassium 3.6, BUN 24, creatinine 7.0, glucose 132, calcium 8.8. PROBLEMS: 1. Congestive heart failure. Her volume status seems somewhat decompensated today with increased lower extremity edema. She is still oxygenating well and denies any shortness of breath. I am increasing her Lasix dose to 60 mg twice a day. 2. Hypokalemia. Potassium level is borderline and likely to drop further with increased diuretic dose. Her potassium supplement is being increased to 20 mEq twice a day. 3. Hypertension. Blood pressure has been reasonably well controlled and she continues with her metoprolol, hydralazine and diuretic. 4. Metastatic disease. She has a history of metastatic breast cancer and her imaging studies have shown multiple skeletal metastatic lesions. A PET scan has been recommended by radiology. She will probably follow up with oncology as an outpatient.
[2020-12-24 06:06] VITALS: BP 130/60
[2020-12-24] MEDS: COMBIVENT RESPIMAT 100-20MCG INHALER 4GM INH SCH ×3 (07:03→18:07)
[2020-12-24] MEDS: **hydrALAZINE HCL** 25 MG TAB PO SCH ×3 (09:00→21:42)
[2020-12-24] MEDS: LEVEMIR (INSULIN DETEMIR) 1 UNITS/0.01ML SC SCH ×2 (09:15→21:42)
[2020-12-24] MEDS: POTASSIUM CHLORIDE 10MEQ SR TABLET PO SCH ×2 (09:17→21:42)
[2020-12-24] MEDS: FUROSEMIDE 20 MG TAB PO SCH ×2 (09:17→17:23)
[2020-12-24] MEDS: HumaLOG INSULIN (NovoLOG) PER UNIT SC SCH ×4 (09:17→21:00)
[2020-12-24] MEDS: LACTOBACILLUS ACIDOPHILUS CAP (BACID) PO SCH ×4 (09:19→21:43)
[2020-12-24] MEDS: APIXABAN 5 MG TAB (ELIQUIS) PO SCH ×2 (09:19→21:41)
[2020-12-24] MEDS: SITagliptin 50 MG TAB (JANUVIA) PO SCH (09:20)
[2020-12-24] MEDS: METOPROLOL TART 25 MG TABLET PO SCH ×2 (09:20→21:41)
[2020-12-24] MEDS: MULTIVITAMINS/MINERALS THERAP 1 TAB PO SCH (09:20)
[2020-12-24] MEDS: DOCUSATE SODIUM 100MG CAPSULE PO SCH ×2 (09:20→21:43)
[2020-12-24] MEDS: PANTOPRAZOLE 40MG TAB (PROTONIX) PO SCH (09:21)
--- NOTE | 2020-12-24 12:32 | IPNPDOC ---
Text Note Date of Service The patient was seen on 12/24/20. NOTE SUBJECTIVE: Patient was seen in acute rehabilitation unit today morning she was seated by the bedside on her chair with her legs dangling down. She still has edema in her bilateral legs. Patient ate her breakfast this morning and is feeling okay except for the pain in her bones especially in her back. OBJECTIVE: Physical exam: Vitals: See below General: Alert and oriented female patient was sitting on the chair by her bedside. Patient not appear to be in any acute distress. HEENT: Normocephalic, atraumatic, moist mucous membranes. Neck: No lymphadenopathy or thyromegaly Cardiac: Regular rate and rhythm, no murmurs, normal S1, normal S2 Pulm: Clear to auscultation bilaterally. No wheezes, rhonchi, rales Abd: Nondistended, nontender to palpation, normal bowel sounds Ext: Edema of the dorsum of the left foot, trace edema on the right foot and ankles bilaterally Assessment/plan: 85-year-old female with a history of stage IV breast cancer presented to the hospital with progressive weakness 1. Congestive heart failure. Her lower extremity edema is still there however much better than yesterday. She is still oxygenating well and denies any shortness of breath. Continues to be on Lasix 60 mg twice a day. 2. Hypokalemia. Potassium level is borderline and likely to drop further with increased diuretic dose. Her potassium supplement is being increased to 20 mEq twice a day. 3. Hypertension. Blood pressure has been reasonably well controlled and she continues with her metoprolol, hydralazine and diuretic. 4. Metastatic disease. She has a history of metastatic breast cancer and her imaging studies have shown multiple skeletal metastatic lesions. The pain in her bones is most likely due to the metastatic skeletal lesions. VS,Fishbone, I+O VS, Fishbone, I+O Vital Signs Date Time Temp Pulse Resp B/P (MAP) Pulse Ox O2 Delivery O2 Flow Rate FiO2 12/24/20 09:20 119/71 12/24/20 06:06 97.2 68 17 95 Room Air I&O- Last 24 Hours up to 6 AM 12/24/20 06:00 Intake Total 780 ml Balance 780 ml GME ATTESTATION GME ATTESTATION My faculty preceptor for this patient encounter was physically present during the encounter and was fully available. All aspects of the patient interview, examination, medical decision making process, and medical care plan development were reviewed and approved by the faculty preceptor. The faculty preceptor is aware and concurs with the plan as stated in the body of this note and will attest to such by his/her cosignature. Hilario Mccarty MD Dec 24, 2020 12:30
[2020-12-24 14:00] VITALS: BP 131/75
[2020-12-24 20:00] VITALS: BP 138/72
[2020-12-24] MEDS: SIMVASTATIN 40 MG TAB PO SCH (21:41)
[2020-12-24] MEDS: SENNA 8.6 MG TAB (SENOKOT) PO SCH (21:42)
[2020-12-24] MEDS: ACETAMINOPHEN TAB 650MG DOSE (2X325MG) PO PRN (22:21)
[2020-12-25 05:06] VITALS: BP 142/82
[2020-12-25] MEDS: ACETAMINOPHEN TAB 650MG DOSE (2X325MG) PO PRN (05:22)
[2020-12-25] MEDS: HumaLOG INSULIN (NovoLOG) PER UNIT SC SCH ×4 (07:30→20:54)
[2020-12-25 08:12] LABS: BLOOD UREA NITROGEN 24 MG/DL (7-18); CALCIUM LEVEL 8.7 MG/DL (8.8-10.2); CARBON DIOXIDE LEVEL 29 MEQ/L (21-32); CHLORIDE LEVEL 105 MEQ/L (98-107); CREATININE FOR GFR 0.85 MG/DL (0.55-1.30); GLOMERULAR FILTRATION RATE > 60.0 (>32); GLUCOSE, FASTING 97 MG/DL (70-100); POTASSIUM SERUM 3.8 MEQ/L (3.5-5.1); SODIUM LEVEL 141 MEQ/L (136-145)
[2020-12-25] MEDS: LEVEMIR (INSULIN DETEMIR) 1 UNITS/0.01ML SC SCH ×2 (08:23→20:54)
[2020-12-25] MEDS: SITagliptin 50 MG TAB (JANUVIA) PO SCH (08:23)
[2020-12-25] MEDS: MULTIVITAMINS/MINERALS THERAP 1 TAB PO SCH (08:24)
[2020-12-25] MEDS: METOPROLOL TART 25 MG TABLET PO SCH ×2 (08:24→20:53)
[2020-12-25] MEDS: DOCUSATE SODIUM 100MG CAPSULE PO SCH ×2 (08:24→20:52)
[2020-12-25] MEDS: PANTOPRAZOLE 40MG TAB (PROTONIX) PO SCH (08:24)
[2020-12-25] MEDS: FUROSEMIDE 20 MG TAB PO SCH ×2 (08:24→16:22)
[2020-12-25] MEDS: APIXABAN 5 MG TAB (ELIQUIS) PO SCH ×2 (08:24→20:52)
[2020-12-25] MEDS: LACTOBACILLUS ACIDOPHILUS CAP (BACID) PO SCH ×4 (08:24→20:52)
[2020-12-25] MEDS: **hydrALAZINE HCL** 25 MG TAB PO SCH ×3 (08:25→20:53)
[2020-12-25] MEDS: POTASSIUM CHLORIDE 10MEQ SR TABLET PO SCH ×2 (08:25→20:52)
[2020-12-25] MEDS: COMBIVENT RESPIMAT 100-20MCG INHALER 4GM INH SCH ×3 (09:30→19:36)
[2020-12-25 14:00] VITALS: BP 120/57
--- NOTE | 2020-12-25 19:37 | IPN ---
PROGRESS NOTE DATE: 12/25/2020 SUBJECTIVE: Ms. Bhagat is seen this morning on her bedside. She just finished her physical therapy and is still in the wheelchair. She reports that her back pain is better today. She denies any nausea or vomiting. She has no dyspnea or chest pain. OBJECTIVE: On physical examination, temperature 97.5 degrees Fahrenheit, heart is 72 per minute, respiratory rate 18 per minute, blood pressure 142/82 mmHg and oxygen saturation 95% on room air. Head is atraumatic. Neck is supple and without jugular venous distention (JVD) sitting upright. Lungs with few basilar rales. Heart sounds are regular. Abdomen soft and nontender and bowel sounds are normal. Extremities without any cyanosis or clubbing. Lower extremity edema is still 1+ bilaterally. Her legs are wrapped in DYLAN bandage. LABORATORY DATA: Today's chemistry showed sodium 141, potassium 3.8, Co2 29, BUN 24 and creatinine is 0.85. Calcium level 8.7. PROBLEMS: 1. Congestive heart failure. Her volume status is slightly decompensated and she has lower extremity edema. She remains on furosemide 60 mg twice a day. 2. Hypertension. Blood pressure very well controlled on diuretics and hydralazine 25 mg three times a day. She is also getting metoprolol 25 mg twice a day. 3. Hyperkalemia. Potassium level has improved and stable at present. She is receiving 20 mEq potassium chloride twice a day. 4. Anemia. She has mild anemia, which has been stable and does not need any intervention. 5. Metastatic bony lesions. The patient is known to have metastatic breast cancer. Her imaging studies are positive for wide spread metastatic bony lesions. She is going to follow up with oncology.
[2020-12-25 20:00] VITALS: BP 140/62
[2020-12-25] MEDS: SIMVASTATIN 40 MG TAB PO SCH (20:52)
[2020-12-25] MEDS: SENNA 8.6 MG TAB (SENOKOT) PO SCH (20:52)
[2020-12-26 06:27] VITALS: BP 135/63
[2020-12-26] MEDS: COMBIVENT RESPIMAT 100-20MCG INHALER 4GM INH SCH ×2 (07:21→14:00)
[2020-12-26] MEDS: SITagliptin 50 MG TAB (JANUVIA) PO SCH (08:22)
[2020-12-26] MEDS: POTASSIUM CHLORIDE 10MEQ SR TABLET PO SCH (08:23)
[2020-12-26] MEDS: LACTOBACILLUS ACIDOPHILUS CAP (BACID) PO SCH ×2 (08:23→11:54)
[2020-12-26] MEDS: APIXABAN 5 MG TAB (ELIQUIS) PO SCH (08:24)
[2020-12-26] MEDS: PANTOPRAZOLE 40MG TAB (PROTONIX) PO SCH (08:24)
[2020-12-26] MEDS: **hydrALAZINE HCL** 25 MG TAB PO SCH (08:24)
[2020-12-26] MEDS: MULTIVITAMINS/MINERALS THERAP 1 TAB PO SCH (08:24)
[2020-12-26 08:25] VITALS: BP 135/71
[2020-12-26] MEDS: METOPROLOL TART 25 MG TABLET PO SCH (08:25)
[2020-12-26] MEDS: FUROSEMIDE 20 MG TAB PO SCH (08:25)
[2020-12-26] MEDS: HumaLOG INSULIN (NovoLOG) PER UNIT SC SCH ×2 (08:26→11:54)
[2020-12-26] MEDS: LEVEMIR (INSULIN DETEMIR) 1 UNITS/0.01ML SC SCH (08:26)
[2020-12-26] MEDS: DOCUSATE SODIUM 100MG CAPSULE PO SCH (08:27)
[2020-12-26] MEDS ORDERED: SIMV40TA20 PO (08:54)
[2020-12-26] MEDS ORDERED: POTA-136 PO (08:54)
[2020-12-26] MEDS ORDERED: GLIP5TAB8 PO (08:54)
[2020-12-26] MEDS ORDERED: SITA50TAB PO (08:54)
[2020-12-26] MEDS ORDERED: PANT40TA29 PO (08:54)
[2020-12-26] MEDS ORDERED: INSUDET SC ×2 (08:54)
[2020-12-26] MEDS ORDERED: ELIQ5TAB PO (08:54)
[2020-12-26] MEDS ORDERED: METO1TAB87 PO (08:54)
[2020-12-26] MEDS ORDERED: DEXA2TA PO (08:54)
[2020-12-26] MEDS ORDERED: HYDR25TA PO (08:54)
[2020-12-26] MEDS ORDERED: FURO20TA2 PO (08:54)
[2020-12-26] MEDS ORDERED: GLIP2.5T6 PO (09:07)
[2020-12-26] MEDS ORDERED: COMBAER6 INH (09:30)
--- NOTE | 2020-12-26 20:35 | IPNPDOC ---
Date Seen The patient was seen on 12/25/20. Progress Note SUBJECTIVE: Patient examined overnight. No acute events. States physical therapy was participating physical therapy. No CP, no SOB, no n/v/d. PHYSICAL EXAM VITAL SIGNS: please see below General: NAD, comfortable HEENT: PERRLA, EOMI, sclerae clear Neck: supple, normal ROM, no JVD Respiratory: lungs CTAB, no wheeze, no rales, no crackles CVS: RRR, normal S1, S2, no murmurs Abdo: soft, no masses, no hepatosplenomegaly, BS+, no rebound tenderness Extremities: no edema, pulses 2+ MSK: no joint deformities, normal ROM Neuro: no focal neuro deficits, moving all 4 extremities, CN2-12 intact. Strength 5/5 in all 4 extremities. No nystagmus. Psych: calm, cooperative, AAO x 3 IMAGING: Venous duplex 12/22/20: IMPRESSION: No evidence of deep venous thrombosis of the bilateral lower extremity femoral popliteal venous system. CTA chest (12/22/20): IMPRESSION: 1. Bilateral ground-glass opacities in the middle, lingular and lower lobes more likely atelectatic an infectious, to be evaluated clinically. 2. Redemonstration of a elongated partially calcified lobular parenchymal opacity in the right upper lobe measuring approximately 2.7 x 0.9 x 1.2 cm. Correlation with prior CT if available suggested. Otherwise further evaluation may be indicated including PET imaging according to Fleischner guidelines. 3. Multiple sclerotic foci demonstrated in the thoracic vertebrae including the posterior elements at several levels. 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 4. There is no aortic dissection or aneurysm. 5. There are no pulmonary emboli. 6. Findings consistent with remote intrathoracic granulomatous infection. Assessment/plan: 85-year-old female with history of stage IV breast cancer presented to hospital with progressive weakness and has now been discharged to the acute rehab unit. 1. Metabolic encephalopathy likely secondary tract infection electrolyte disturbance. Patient has been adequately treated and will continue to monitor. Patient is now on oral cefdinir which will be continued for total of 7 days of therapy. Patient did show staph hominis on blood culture but this is most likely contaminant. Continue to work with physical therapy on the area floor. 2. Lactic acidosis, resolved with IV fluids 3. Hyperkalemia, resolved continue to monitor. 4. Questionable mass metastatic foci found on CT of the skull. 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 Continue to monitor and follow-up outpatient. 5. Uncontrolled type 2 diabetes. Patient was on dexamethasone for cancer. Last A1c was 10.7. Continue Levemir 10 units twice daily and once discharge she can be switched to 20 units of glargine once a day. 6. Ketosis, likely starvation, resolved. Patient is feeling better. 7. Bilateral lower extremity edema. DVT ruled out with ultrasound. Continue t o monitor. DWAIN stockings. 8. Hyponatremia, resolved. Continue to monitor. 9. Hypertension. Monitor patient's blood pressure and start antihypertensive therapy as necessary. 9. Dyslipidemia. Continue home simvastatin. 11. History of pulmonary embolism. Continue Eliquis. 12. Weakness. Patient is improving and will continue to work with the [facility] staff. 13. SOB: negative CTA PE. Negative duplex for DVT. Lung changes on CT stable. 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 C/w eliquis. DVT Prophylaxis: Anticoagulation with Eliquis Disposition: Discharge per Dr. Winters and the ARU staff VS, I&O, 24H, Fishbone Vital Signs/I&O Vital Signs Date Time Temp Pulse Resp B/P (MAP) Pulse Ox O2 Delivery O2 Flow Rate FiO2 12/26/20 08:25 72 135/71 12/26/20 06:27 96.4 16 95 Room Air I&O- Last 24 Hours up to 6 AM 12/26/20 06:00 Intake Total 940 ml Balance 940 ml Laboratory Data 24H LABS Laboratory Tests 2 12/26/20 04:48: Bedside Glucose (Misc Panel) 162H 12/26/20 11:43: Bedside Glucose (Misc Panel) 187H WOLF WATKINS MD Dec 26, 2020 20:35
[2020-12-27] MEDS ORDERED: LEVEMIR (INSULIN DETEMIR) 1 UNITS/0.01ML SC SCH (09:00)
== END 2020-12-26 14:22 | disposition home health service (06) | DRG 71 ==
LOC: M PM&R 18:20
PROVIDERS: ADMIT Physical Medicine & Rehabilitation; ATTEND Physical Medicine & Rehabilitation
DX: G93.40 Encephalopathy, unspecified (principal); I50.32 Chronic diastolic (congestive) heart failure; E87.1 Hypo-osmolality and hyponatremia; N39.0 Urinary tract infection, site not specified; C79.51 Secondary malignant neoplasm of bone; C79.31 Secondary malignant neoplasm of brain; I13.0 Hypertensive heart and chronic kidney disease with heart failure and stage 1 through stage 4 chronic kidney disease, or unspecified chronic kidney disease; R53.1 Weakness; E78.5 Hyperlipidemia, unspecified; I48.91 Unspecified atrial fibrillation; E11.65 Type 2 diabetes mellitus with hyperglycemia; E11.42 Type 2 diabetes mellitus with diabetic polyneuropathy; J84.10 Pulmonary fibrosis, unspecified; E11.22 Type 2 diabetes mellitus with diabetic chronic kidney disease; I27.20 Pulmonary hypertension, unspecified; N18.9 Chronic kidney disease, unspecified; E87.5 Hyperkalemia; Z66 Do not resuscitate; Z85.3 Personal history of malignant neoplasm of breast; Z74.1 Need for assistance with personal care; Z74.09 Other reduced mobility; Z86.711 Personal history of pulmonary embolism; Z79.01 Long term (current) use of anticoagulants; Z79.899 Other long term (current) drug therapy; Z77.090 Contact with and (suspected) exposure to asbestos

== ENCOUNTER → 2021-01-19 | Outpatient (REF) | payer MEDICARE ==
[~2021-01-19] MED LIST changes: +COMBAER6 INH; +FURO20TA2 PO; +GLIP2.5T6 PO; +HYDR25TA PO; +INSUDET SC; +METO1TAB87 PO; +PANT40TA29 PO
[2021-01-19 16:04] LABS: BASO % 0.1 % (0.0-1.0); EOS # 0.1 10^3/uL (0.0-0.5); EOS % 0.5 % (0.0-3.0); HEMATOCRIT 37.5 % (36.0-47.0); HEMOGLOBIN 12.3 g/dl (12.0-15.5); LYMPH # 2.2 10^3/uL (1.5-5.0); LYMPH % 12.4 % (24.0-44.0); MEAN CORPUSCULAR HEMOGLOBIN 34.7 pg (27.0-33.0); MEAN CORPUSCULAR HGB CONC 32.8 g/dl (32.0-36.5); MEAN CORPUSCULAR VOLUME 105.9 fl (80.0-96.0); MONO # 0.9 10^3/uL (0.0-0.8); MONO % 5.1 % (2.0-8.0); NEUTROPHILS # 12.5 10^3/uL (1.5-8.5); NEUTROPHILS % 71.4 % (36.0-66.0); PLATELET COUNT, AUTOMATED 246 10^3/uL (150-450); RED BLOOD COUNT 3.54 10^6/uL (4.00-5.40); WHITE BLOOD COUNT 17.5 10^3/uL (4.0-10.0)
[2021-01-19 17:03] LABS: BILIRUBIN,TOTAL 0.5 MG/DL (0.2-1.0); CALCIUM LEVEL 10.2 MG/DL (8.8-10.2); CREATININE FOR GFR 1.17 MG/DL (0.55-1.30); FREE T4 0.79 NG/DL (0.76-1.46); MAGNESIUM LEVEL 2.2 MG/DL (1.8-2.4); POTASSIUM SERUM 3.9 MEQ/L (3.5-5.1); THYROID STIMULATING HORMONE 6.16 uIU/ML (0.358-3.740); TOTAL PROTEIN 6.5 GM/DL (6.4-8.2)
== END ==
LOC: M SFHCCLAY 09:41
PROVIDERS: ATTEND Family Medicine
DX: I10 Essential (primary) hypertension (principal); C50.912 Malignant neoplasm of unspecified site of left female breast; E83.42 Hypomagnesemia

== ENCOUNTER → 2021-01-19 | Outpatient (CLI) | payer MEDICARE ==
--- NOTE | 2021-01-19 09:14 | REP ---
INDICATION: I10 ESSENTIAL HTN/ L NEOPLASM OF BREAST. COMPARISON: 12/22/2020 TECHNIQUE: PA and lateral FINDINGS: Once again, there is biapical calcific pleuroparenchymal scarring which appears unchanged. There is a 4 mm size nodule in the right upper lobe. This was previously obscured by the osseous structures, however, it is completely unchanged from the next latest prior PA view of the chest of 06/01/2020. The cardiomediastinal silhouette is unchanged. Pleural angles are again seen to be sharp. There is no significant change in appearance of the osseous structures. IMPRESSION: No significant change radiographically, however, prior CT of the chest of 12/22/2020 showed significant lung field abnormalities. Follow-up with CT should be considered. <Electronically signed by Cooper Charles > 01/19/21 [id number]
== END ==
LOC: M CLY 07:56
PROVIDERS: ATTEND Family Medicine
DX: I10 Essential (primary) hypertension (principal); C50.912 Malignant neoplasm of unspecified site of left female breast; R91.1 Solitary pulmonary nodule; E03.9 Hypothyroidism, unspecified; E09.9 Drug or chemical induced diabetes mellitus without complications; L03.011 Cellulitis of right finger; Z23 Encounter for immunization; Z86.711 Personal history of pulmonary embolism; E83.42 Hypomagnesemia
CPT/HCPCS: 71046; 80053; 83735; 83880; 84439; 84443; 85025; 90682; G0008; G0463

== ENCOUNTER → 2021-03-24 | Outpatient (REF) | payer MEDICARE ==
[2021-03-24 16:40] LABS: HEMATOCRIT 33.8 % (36.0-47.0); HEMOGLOBIN 10.9 g/dl (12.0-15.5); MEAN CORPUSCULAR HEMOGLOBIN 36.3 pg (27.0-33.0); MEAN CORPUSCULAR HGB CONC 32.2 g/dl (32.0-36.5); MEAN CORPUSCULAR VOLUME 112.7 fl (80.0-96.0); WHITE BLOOD COUNT 2.7 10^3/uL (4.0-10.0)
[2021-03-24 18:07] LABS: ANISOCYTOSIS 2+; ATYPICAL LYMPH 10 % (0-5); EOSINOPHILS 2 % (0-3); LYMPHOCYTES 70 % (16-44); MONOCYTES 2 % (0-5); NEUTROPHILS 11 % (28-66)
[2021-03-24 18:08] LABS: PLATELET CLUMPS MODERATE AMT
== END ==
LOC: M LABDRAWC 15:51
PROVIDERS: ATTEND Student in an Organized Health Care Education/Training Program
DX: C79.51 Secondary malignant neoplasm of bone (principal)